=== PATIENT | male | born 1940 | race Caucasian/White ===

== ENCOUNTER 2024-06-16 14:22 | Outpatient (CLI) | payer MEDICARE, BC, SELFPAY | END 2024-06-16 14:23 | disposition home or self-care (01) | PROVIDERS: PCP Family Medicine; Visit Provider Emergency Medicine | DX: R53.1 Weakness (principal); I49.9 Cardiac arrhythmia, unspecified; R42 Dizziness and giddiness | CPT/HCPCS: A0425; A0427 ==

== ENCOUNTER 2024-06-16 14:52 | Observation (INO) | payer MEDICARE, BC, SELFPAY ==
[2024-06-16] VITALS (8 sets, daily range): BP systolic 123–160; BP diastolic 47–88; PULSE 67–82; RESP 16–22; TEMP 36.6–37.1; O2SAT 95–98
--- NOTE | 2024-06-16 15:34 | CRLHL7_ITS ---
For Patients: As a result of the Century Cures Act, medical imaging exams and procedure reports are released immediately into your electronic medical record. You may view this report before your referring provider. If you have questions, please contact your health care provider. Indication: Weakness, syncope, fall and hit head Technique: Volumetric multidetector CT images of the cervical spine were obtained without the administration of IV contrast. Comparison: None available. Findings: The cervical vertebral body heights are grossly maintained with minimal endplate Schmorl`s defects. There is mild straightening of the normal cervical lordosis with trace anterolisthesis C4 on C5. There is no displaced fracture or dislocation. Moderate multilevel degenerative disc disease with disc height loss and marginal osteophyte formation. Minimal ossification of the posterior longitudinal ligament. Moderate degenerative changes of the atlantoaxial joint are appreciated. There is moderate to severe facet arthrosis. The paraspinous soft tissues are grossly within normal limits. Impression: Moderate degenerative changes of the cervical spine without acute osseous abnormality. Please note that all CT scans at this facility use dose modulation, iterative reconstruction, and/or weight-based dosing when appropriate to reduce radiation dose to as low as reasonably achievable. Dictated by Jeovany Gerard MD @ 06/16/2024 4:59:20 PM (Electronically Signed)
--- NOTE | 2024-06-16 15:34 | CRLHL7_ITS ---
For Patients: As a result of the Cures Act, medical imaging exams and procedure reports are released immediately into your electronic medical record. You may view this report before your referring provider. If you have questions, please contact your health care provider. Indication: Syncope, weakness recent fall and head strike Technique: Volumetric multidetector CT images of the head were obtained without the administration of low osmolar intravenous contrast. Comparison: None available Findings: There is minimal subacute to acute subdural hemorrhage layering along the anterior right cerebral convexity with additional more chronic subdural fluid layering along the left cerebral convexity. There is balanced effacement of the bilateral cerebral hemispheres without significant midline shift. There is age-related cortical atrophy with mild sulcal widening and ex vacuo dilatation of the lateral ventricles. There are chronic small vessel disease changes in the subcortical and periventricular white matter without lost ritter-white differentiation. The orbits and their contents are grossly within normal limits. The bony calvarium is grossly intact. The paranasal sinuses are clear. The mastoid air cells are well aerated. Impression: Demonstration of likely acute and/or subacute subdural hemorrhage layering along the right anterior cerebral convexity with additional likely chronic subdural fluid layering along the left cerebral convexity with overall balanced effacement of the bilateral cerebral hemispheres without significant midline shift. Findings were discussed with Ian Finnegan at 5:01 p.m. June 16, 2024 Please note that all CT scans at this facility use dose modulation, iterative reconstruction, and/or weight-based dosing when appropriate to reduce radiation dose to as low as reasonably achievable. Dictated by Jeovany Gerard MD @ 06/16/2024 5:07:09 PM (Electronically Signed)
--- NOTE | 2024-06-16 15:36 | ED.GENADULT ---
HPI - General Adult General Date Seen: 06/16/24 Chief complaint: Syncope/Fainted Stated complaint: weekness Time Seen by Provider: 06/16/24 15:10 Source: patient and family Mode of arrival: EMS Limitations: no limitations History of Present Illness HPI narrative: Patient is an 83-year-old male presenting to emergency department for weakness. He is brought in by EMS. His states that today while sitting in his chair the patient suddenly through was arms up in then seemed to be elevated for the next 10 seconds. She asked if he wants to come to the emergency department he says yesterday called an ambulance. He states he is no longer feeling lightheaded but feels slightly dizzy. Denies any chest pain or shortness of breath. States he has been feeling weak since mid March. He thinks it is related to a fall he had at that time were hit his head. Since then he has had multiple other falls with most recent 1 being yesterday when he slipped in some water. He believes he hit his head at that time. Is not on any blood thinners. He is otherwise acting normally. Does note yesterday he was also feeling very weak when trying to go to the bathroom and had to be on his hands and knees. Has been more off balance when walking compared to his baseline. Was able to shovel snow yesterday when he slipped on some ice. Overall sounds like the patient is falling quite a few times. Denies abdominal pain, headache, vision changes, numbness. Related Data Home Medications ?Medication ?Instructions ?Recorded ?Confirmed No Known Home Medications 06/16/24 06/16/24 Allergies Allergy/AdvReac Type Severity Reaction Status Date / Time No Known Drug Allergies Allergy Verified 06/16/24 15:16 Review of Systems Status of ROS: Reports: 10 or more systems reviewed and unremarkable except as noted in History and below PFS PFS Social History Smoking Status: Never smoker How often do you have a drink containing alcohol: never AUDIT-C Alcohol total score: 0 Non-prescribed substance use: denies use service: No Exam Narrative: Exam Narrative: Const: Well-nourished, Well-developed, in no distress Eyes: PERRL, no conjunctival injection, and symmetrical lids HENT: Atraumatic external nose and ears. Moist mucous membranes. Neck: Symmetric, trachea midline, No thyromegaly. CVS: RRR, No murmurs or gallops. Peripheral pulses 2+ and equal in all extremities RESP: Unlabored respiratory effort. Clear to auscultation bilaterally. GI: Nontender/Nondistended, No rebound or guarding. MSK:Extremities w/o deformity, Normal Active ROM Skin: Warm, Dry. No rashes or lesions. Neuro: Normal Muscle tone, Cranial nerves 2-12 grossly intact, normal [id number], normal [id number], normal strength 5/5 upper lower extremities bilaterally, normal sensation upper and lower extremities bilaterally, normal rapid alternating movements. Psych: Awake, Alert, & Oriented x3. Appropriate mood and affect. Const: Vital Signs, click to edit/add: Vital Signs - 24 hr 06/16/24 15:01 06/16/24 15:57 06/16/24 16:04 Temperature 97.8 F Pulse Rate [Pulse Oximeter] 72 72 Pulse Rate [orthos tatic lying Pulse Oximeter] 75 Pulse Rate [orthos tatic sitting Puls e Oximeter] 72 Pulse Rate [orthos tatic standing Pul se Oximeter] 82 Respiratory Rate 16 22 Blood Pressure [Ri ght Upper Arm] 142/83 H 138/70 Blood Pressure [or thostatic lying] 142/83 H Blood Pressure [or thostatic sitting] 136/73 Blood Pressure [or thostatic standing ] 140/76 H Pulse Oximetry 98 95 Oxygen Delivery Me thod Room Air Room Air 06/16/24 16:30 Temperature 98.8 F Pulse Rate [Pulse Oximeter] 70 Pulse Rate [orthos tatic lying Pulse Oximeter] Pulse Rate [orthos tatic sitting Puls e Oximeter] Pulse Rate [orthos tatic standing Pul se Oximeter] Respiratory Rate 18 Blood Pressure [Ri ght Upper Arm] 123/88 Blood Pressure [or thostatic lying] Blood Pressure [or thostatic sitting] Blood Pressure [or thostatic standing ] Pulse Oximetry 96 Oxygen Delivery Me thod Room Air Course Vital Signs Vital signs: Initial Vital Signs Temperature 97.8 F 06/16/24 15:01 Temperature Source Temporal Artery Scan 06/16/24 15:01 Pulse Rate 72 06/16/24 15:01 Respiratory Rate 16 06/16/24 15:01 Blood Pressure 142/83 H 06/16/24 15:01 Blood Pressure Mean 102 06/16/24 15:01 Blood Pressure Position Supine 06/16/24 15:01 Pulse Oximetry 98 06/16/24 15:01 Oxygen Delivery Method Room Air 06/16/24 15:01 Vital Signs Temperature 97.8 F 06/16/24 15:01 Pulse Rate 72 06/16/24 15:01 Respiratory Rate 16 06/16/24 15:01 Blood Pressure 142/83 H 06/16/24 15:01 Pulse Oximetry 98 06/16/24 15:01 Oxygen Delivery Method Room Air 06/16/24 15:01 Temperature 98.8 F 06/16/24 16:30 Pulse Rate 70 06/16/24 16:30 Respiratory Rate 18 06/16/24 16:30 Blood Pressure 123/88 06/16/24 16:30 Pulse Oximetry 96 06/16/24 16:30 Oxygen Delivery Method Room Air 06/16/24 16:30 Medical Decision Making MDM Narrative Medical decision making narrative: Patient is an 83-year-old male presenting to emergency department for multiple falls and weakness. Unsure what is causing his falls there is concerned possible brain bleed considering home either have been. Will also check a BMP to look for signs of kidney or electrolyte disorders. EKG and troponin to look for signs of ACS. Also order viral swabs. Since he has fallen multiple times will also scan the neck for possible fractures and head for possible bleeding. Lab work all returned showing no acute concerning abnormalities. Urinalysis still pending at this time. EKG and troponin showed no concerning findings. Consider symptoms seem to have been going on for several weeks to months I do not believe repeat troponin is necessary at this time. Lab Data Labs: Lab Results 06/16/24 06/16/24 Range/Units 15:34 15:51 WBC 6.83 (4.50-11.00) K/uL RBC 4.14 L (4.30-5.90) m/uL Hgb 12.3 L (13.5-17.5) gm/dL Hct 38.4 (37.0-53.0) % MCV 93 (80-100) fL MCH 30 (26-34) pg MCHC 32 (32-36) gm/dL RDW Coeff of Ophelia 12.2 (11.5-15.5) % Plt Count 197 (140-440) K/uL Neut % (Auto) 78.1 H (42.0-72.0) % Lymph % (Auto) 12.9 L (20-44) % [place] % (Auto) 8.5 (0.0-11.0) % Eos % (Auto) 0.4 (0.0-7.0) % Baso % (Auto) 0.0 (0.0-3.0) % Neut # (Auto) 5.30 (1.7-7.0) K/uL Lymph # (Auto) 0.90 (0.90-2.90) K/uL [place] # (Auto) 0.60 (0.00-0.90) K/UL Eos # (Auto) 0.03 (0.00-0.50) K/uL Baso # (Auto) 0.00 (0.00-0.30) K/uL Abs Immat Gran (auto) 0.01 (0.00-0.30) K/uL Imm/Tot Granulo (auto) 0.1 % Sodium 137 (135-149) mmol/L Potassium 4.7 (3.6-5.1) mmol/L Chloride 102 (96-114) mmol/L Carbon Dioxide 32 (20-32) mmol/L Anion Gap 3 L (7-15) mEq/L BUN 20 (7-30) mg/dL Creatinine 0.9 (0.5-1.5) mg/dL Estimated GFR 85 ml/min Glucose 92 (60-115) mg/dL Calcium 9.1 (8.4-10.6) mg/dL Total Bilirubin 0.7 (0.1-1.5) mg/dL AST 40 H (12-35) U/L ALT 23 (4-50) U/L Alkaline Phosphatase 67 (40-150) U/L Total Protein 6.0 (6.0-8.3) g/dL Albumin 3.7 (3.3-5.0) g/dL SARS-CoV-2 (PCR) Negative SARS-CoV-2 (Negative) Influenza Type A (PCR) Negative PCR FLU A (Negative) Influenza Type B (PCR) Negative PCR FLU B (Negative) RSV (PCR) Negative PCR RSV (Negative) POC Troponin I 0.00 L (0.01-0.04) ng/ml Imaging Data CT scan cervical spine : Attestation: I have reviewed the pertinent imaging results. Radiologist's impression: Moderate degenerative changes of the cervical spine without acute osseous abnormality. Please note that all CT scans at this facility use dose modulation, iterative reconstruction, and/or weight-based dosing when appropriate to reduce radiation dose to as low as reasonably achievable. Dictated by Jeovany Gerard MD @ 06/16/2024 4:59:[address] scan head: Attestation: I have reviewed the pertinent imaging results. Radiologist's impression: Demonstration of likely acute and/or subacute subdural hemorrhage layering along the right anterior cerebral convexity with additional likely chronic subdural fluid layering along the left cerebral convexity with overall balanced effacement of the bilateral cerebral hemispheres without significant midline shift. Findings were discussed with Ian Finnegan at 5:01 p.m. June 16, 2024 Please note that all CT scans at this facility use dose modulation, iterative reconstruction, and/or weight-based dosing when appropriate to reduce radiation dose to as low as reasonably achievable. Dictated by Jeovany Gerard MD @ 06/16/2024 5:07:09 PM ECG Data Attestation: I personally reviewed and interpreted this ECG as follows: Prior ECG tracings: not available for review Interpretation: Normal sinus rhythm with a rate of 77 beats per minute, normal intervals, normal axis, no ST or T-wave abnormalities. There are some premature atrial complexes. Discharge Plan Discharge Clinical Impression: Acute subdural hematoma Condition: Stable Prescriptions: No Action No Known Home Medications Follow Up/Referrals: Joshua Duran MD [Primary Care Provider] -
[2024-06-16 16:05] LABS: Eosinophils Absolute Auto 0.03 K/uL (0.00-0.50); Eosinophils Percent Auto 0.4 % (0.0-7.0); Hematocrit 38.4 % (37.0-53.0); Hemoglobin* 12.3 gm/dL (13.5-17.5); Immature Granulocytes Abs Auto 0.01 K/uL (0.00-0.30); Immature Granulocytes Pct Auto 0.1 %; Lymphocytes Percent Auto 12.9 % (20-44); Mean Corpuscular HGB Conc 32 gm/dL (32-36); Mean Corpuscular Hemoglobin 30 pg (26-34); Mean Corpuscular Volume 93 fL (80-100); Monocytes Percent Auto 8.5 % (0.0-11.0); Neutrophils Percent Auto 78.1 % (42.0-72.0); Platelet Count* 197 K/uL (140-440); RDW Coefficient of Variation % 12.2 % (11.5-15.5); Red Blood Count 4.14 m/uL (4.30-5.90); White Blood Count* 6.83 K/uL (4.50-11.00)
[2024-06-16 16:06] LABS: Slide Review Reflex No
[2024-06-16 16:20] LABS: Albumin* 3.7 g/dL (3.3-5.0); Chloride* 102 mmol/L (96-114); Potassium* 4.7 mmol/L (3.6-5.1); Sodium* 137 mmol/L (135-149)
[2024-06-16 16:22] LABS: Creatinine* 0.9 mg/dL (0.5-1.5); Estimated Glomerular Filt Rate 85 ml/min
[2024-06-16 16:23] LABS: Alanine Aminotransferase* 23 U/L (4-50); Alkaline Phosphatase* 67 U/L (40-150); Anion Gap 3 mEq/L (7-15); Aspartate Amino Transferase* 40 U/L (12-35); Bilirubin Total* 0.7 mg/dL (0.1-1.5); Blood Urea Nitrogen* 20 mg/dL (7-30); Calcium* 9.1 mg/dL (8.4-10.6); Carbon Dioxide* 32 mmol/L (20-32); Glucose* 92 mg/dL (60-115)
[2024-06-16 16:25] LABS: PCR FLU A Negative PCR FLU A (Negative); PCR FLU B Negative PCR FLU B (Negative); PCR RSV Negative PCR RSV (Negative); SARS PCR* Negative SARS-CoV-2 (Negative)
[2024-06-16 17:33] LABS: Appearance Urine Cloudy (Clear); Bilirubin Urine Negative (Negative); Blood Urine Trace-intact (Negative); Color Urine Yellow (Yellow); Glucose Urine Negative (Negative); Ketones Urine Negative (Negative); Leukocyte Esterase Urine 1+ (Negative); Nitrite Urine Negative (Negative); Protein Urine Trace (Negative); Urobilinogen Urine 0.2 (0.2-1.0)
[2024-06-16 17:46] LABS: RBC Urine 0-2 (0-2)
[2024-06-16 17:47] LABS: Bacteria Urine Many
--- NOTE | 2024-06-16 21:09 | ED.NURSE ---
Ambulated well around nursing station. This nurse noted pt might be slightly unsteady, but pt does not think so, he does however state he is diizy and lightheaded after ambulation.
--- NOTE | 2024-06-16 21:34 | CRLHL7_ITS ---
For Patients: As a result of the Century Cures Act, medical imaging exams and procedure reports are released immediately into your electronic medical record. You may view this report before your referring provider. If you have questions, please contact your health care provider. Indication: Subdural hematoma follow-up Technique: Noncontrast CT through the head with multiplanar reformats Comparison: Same-day head CT Findings: Brain: No parenchymal hemorrhage. No acute infarct. No significant mass effect or midline shift. No gross evidence of a mass lesion or cerebral edema. Bilateral subdural hematomas measuring 8 millimeters on the right and 9 millimeters on the left, not significantly changed from prior examination. No new or worsening hemorrhage appreciated. No new or worsening mass effect or midline shift. Ventricles: No acute abnormality appreciated. Unchanged chronic senescent disease. Orbits, sinuses, mastoids: No acute abnormality appreciated. Calvarium and soft tissues: No acute abnormality appreciated. Impression: Bilateral subdural hematomas appear unchanged from prior examination with no new or worsening hemorrhage or mass effect appreciated. Please note that all CT scans at this facility use dose modulation, iterative reconstruction, and/or weight-based dosing when appropriate to reduce radiation dose to as low as reasonably achievable. Dictated by Nirav Hernandez MD @ 06/16/2024 10:26:56 PM (Electronically Signed)
--- NOTE | 2024-06-16 23:04 | PM.IMHP1 ---
Hospitalist- H&P: HPI History of Present Illness Date Seen: 06/17/24 Chief complaint: weakness Narrative: Jose Alberto Amado is a 83 year old male who presented to the ER by EMS for weakness and an atypical neurological episode today. While watching TV today, his saw him throw his arms up and hold them there for about ten seconds. He didn't seem to be responding during that time, no true LOC. He has been notably more tired and unsteady since he had two falls in mid-March (hitting his head, no LOC. Was not seen by a medical provider). He has had other falls since (including yesterday), none with head injuries. Given his neurological episode today, called the ambulance. Upon questioning, notes urinary frequency and strong smell of urine over the past 1-2 weeks. + incontinence, chronic. ER Course and Findings: - acute/subacute subdural on CT. Reviewed with [facility], who felt this was likely chronic and requested repeat imaging in 6 hours, which demonstrated stability - patient noted to be weak and unsteady walking around the ER - CBC and BMP stable, + bacteruria, culture pending Given new diagnosis of subdural hemorrhage + increased falls and ambulatory difficulty, patient admitted to the hospital. Jose Alberto has a h/o prostate cancer, otherwise healthy and takes no regular prescription medications. PCP at [facility], Pierre Navarro. Review of Systems Status of ROS: Reports: 10 or more systems reviewed and unremarkable except as noted in History and below Narrative: - no headaches, no visual changes - no cough or dyspnea - no recent illnesses - family notes that Jose Alberto and Precious have been quite anxious regarding COVID risks; none of the children have been inside their home since [address] 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 Lives independently with Precious. Nonsmoker, no ETOH. Unsure about code status, definitely does not desire mcc intubation. Smoking Status: Never smoker How often do you have a drink containing alcohol: never AUDIT-C Alcohol total score: 0 Non-prescribed substance use: denies use service: No Meds Home Medications and Allergies Home Medications ?Medication ?Instructions ?Recorded ?Confirmed ?Type No Known Home Medications 06/16/24 06/16/24 History Allergies Allergy/AdvReac Type Severity Reaction Status Date / Time No Known Drug Allergies Allergy Verified 06/16/24 15:16 Exam Narrative: Exam Narrative: GEN: Alert and oriented, laying comfortably in bed and answering questions appropriately HEENT: PERRL and EOMIs bilaterally, tongue protrudes midline CV: RRR, No concerning murmurs R: LCTA bilaterally without concerning wheezing Ext: wwp, no concerning edema Skin: Scattered abrasions and bruising on forehead/extremities, all hemostatic Neuro: Cranial nerves intact, no resting tremor, gait not observed Psych: Appropriate bed Const: Vital Signs, click to edit/add: Vital Signs - 24 hr 06/16/24 15:01 06/16/24 15:57 06/16/24 16:04 Temperature 97.8 F Pulse Rate Pulse Rate [Pulse Oximeter] 72 72 Pulse Rate [orthos tatic lying Pulse Oximeter] 75 Pulse Rate [orthos tatic sitting Puls e Oximeter] 72 Pulse Rate [orthos tatic standing Pul se Oximeter] 82 Respiratory Rate 16 22 Blood Pressure Blood Pressure [Ri ght Upper Arm] 142/83 H 138/70 Blood Pressure [or thostatic lying] 142/83 H Blood Pressure [or thostatic sitting] 136/73 Blood Pressure [or thostatic standing ] 140/76 H Pulse Oximetry 98 95 Oxygen Delivery Me thod Room Air Room Air 06/16/24 16:30 06/16/24 17:32 06/16/24 18:00 Temperature 98.8 F Pulse Rate 67 70 Pulse Rate [Pulse Oximeter] 70 Pulse Rate [orthos tatic lying Pulse Oximeter] Pulse Rate [orthos tatic sitting Puls e Oximeter] Pulse Rate [orthos tatic standing Pul se Oximeter] Respiratory Rate 18 Blood Pressure 144/71 H 160/47 H Blood Pressure [Ri ght Upper Arm] 123/88 Blood Pressure [or thostatic lying] Blood Pressure [or thostatic sitting] Blood Pressure [or thostatic standing ] Pulse Oximetry 96 96 [facility] 06/16/24 18:02 06/16/24 18:32 Temperature Pulse Rate 71 68 Pulse Rate [Pulse Oximeter] Pulse Rate [orthos tatic lying Pulse Oximeter] Pulse Rate [orthos tatic sitting Puls e Oximeter] Pulse Rate [orthos tatic standing Pul se Oximeter] Respiratory Rate Blood Pressure 160/47 H 132/79 Blood Pressure [Ri ght Upper Arm] Blood Pressure [or thostatic lying] Blood Pressure [or thostatic sitting] Blood Pressure [or thostatic standing ] Pulse Oximetry 98 96 [facility] - H&P: Result Labs Labs: Short CBC 06/16/24 Range/Units 15:51 WBC 6.83 (4.50-11.00) K/uL Hgb 12.3 L (13.5-17.5) gm/dL Hct 38.4 (37.0-53.0) % Plt Count 197 (140-440) K/uL BMP 06/16/24 15:51 Sodium 137 Potassium 4.7 Chloride 102 Carbon Dioxide 32 BUN 20 Creatinine 0.9 Glucose 92 Calcium 9.1 Liver Function 06/16/24 Range/Units 15:51 Total Bilirubin 0.7 (0.1-1.5) mg/dL AST 40 H (12-35) U/L ALT 23 (4-50) U/L Alkaline Phosphatase 67 (40-150) U/L Albumin 3.7 (3.3-5.0) g/dL Urine 06/16/24 Range/Units 17:25 Urine Color Yellow (Yellow) Urine Appearance Cloudy A (Clear) Urine pH 7.0 (5.0-8.5) Ur Specific [place] 1.020 (1.000-1.030) Urine Protein Trace A (Negative) Urine Glucose (UA) Negative (Negative) Assessment and Plan Assessment and plan (1) Acute subdural hematoma: Problem comment: - new finding, presumably 2/2 fall in March 2024 - stable CT x2 (6 hours apart) in ED 06/16/24 - [facility] evaluated, f/u as outpatient Status: Acute (2) Falls frequently: Problem comment: - likely 2/2 subdural - therapy evaluations ordered Status: Acute Plan - per above - updated in ED, son updated on floor, questions answered
[2024-06-17] VITALS (11 sets, daily range): BP systolic 113–149; BP diastolic 65–83; PULSE 62–82; RESP 18–20; TEMP 36.6–36.9; O2SAT 93–97
--- NOTE | 2024-06-17 06:19 | PC.NURSE ---
Pt pleasant and cooperative. 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 Up to BR with SBA, pt denies feeling dizzy or lightheaded. no complaints through night
[2024-06-17] MEDS: SODIUM CHLORIDE 0.9 % (FLUSH) 10 ML SYRINGE 5 ML IVF (08:15)
--- NOTE | 2024-06-17 16:40 | P.IMPN_ITS ---
Progress Note: A&P Assessment and plan (1) Bilateral subdural hematomas: Problem details: Chronic and/or acute and chronic. Conservative management at this time. Outpatient follow-up with [facility]. Status: Acute (2) Cognitive impairment: Problem details: [place] 22/30 on 06/17/2024 Status: Acute (3) Fear of jerry COVID-19: Problem details: Patient has been isolating himself and his due to fear of COVID. At this point I think the risks of COVID are less than the risks of him being isolated from his family and others. Discussed at length with patient and family Status: Acute (4) Falls frequently: Problem details: Likely had risk for fall prior to subdurals but head injury with subdural is likely made balance worse and fall risk greater. 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 Probably discharge to home tomorrow with supportive family. Discussed recommendations to create a safer living environment, clean out clutter, live on 1 level, moved to a handicap assessable facility at some point in the future. Plan of care discussed with patient, his and daughter. Total time spent today in evaluation and management, conversation with patient family and other providers is 65 minutes Subjective Date Seen: 06/17/24 Interval history: Jose Alberto Amado is a 83 year old male who presented to the ER by EMS for weakness and an atypical neurological episode today. While watching TV today, his saw him throw his arms up and hold them there for about ten seconds. He didn't seem to be responding during that time, no true LOC. He has been notably more tired and unsteady since he had a few falls in mid- March (hitting his head, no LOC. Was not seen by a medical provider). He has had other falls since in April and May (including yesterday), some with head injuries but not I head injury in the past couple days. When he is outside in the winter he wears a bicycle helmet in case he falls and hits his head. Given his neurological episode today, called the ambulance. Upon questioning, notes urinary frequency and strong smell of urine over the past 1-2 weeks. + incontinence, chronic. ER Course and Findings: - acute/subacute subdural on CT. Reviewed with [facility], who felt this was likely chronic and requested repeat imaging in 6 hours, which demonstrated stability - patient noted to be weak and unsteady walking around the ER - CBC and BMP stable, + bacteruria, culture pending Given new diagnosis of subdural hemorrhage + increased falls and ambulatory difficulty, patient admitted to the hospital. Jose Alberto has a h/o prostate cancer, otherwise healthy and takes no regular prescription medications. PCP at [facility], Pierre Navarro. He lives at home with his . He is still driving. Family notes that his house is quite cluttered and they are unsure if he can safely walk with a walker in the house. Family has not been welcome to the house since COVID because of concern of infection. House has a flight of stairs into the basement where he goes to exercise and a flight of stairs from the main floor up stairs where he has a bedroom. Exam Narrative: Exam Narrative: He is alert and appears in no distress. Speech is normal. He is oriented to [facility]. Head is without apparent trauma. Eyes normal. Oropharynx normal. Tongue is midline. No facial asymmetry. External ocular movements are intact. Visual ortiz are intact. Pupils are equal round reactive to light. Neck is supple without mass or adenopathy. Respirations are clear to auscultation. Cardiovascular: S1, S2, regular rate and rhythm. Abdomen is soft without tenderness or mass. 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 Lower extremities have full strength symmetrically in hip flexion, knee flexion and extension, ankle dorsiflexion and plantar flexion. [id number] and heel-[place] are performed efficiently and accurately Const: Vital Signs, click to edit/add: Vital Signs - 24 hr 06/16/24 17:32 06/16/24 18:00 06/16/24 18:02 Temperature Pulse Rate 67 70 71 Pulse Rate [Pulse Oximeter] Pulse Rate [orthos tatic lying Pulse Oximeter] Pulse Rate [orthos tatic sitting Puls e Oximeter] Pulse Rate [orthos tatic standing Pul se Oximeter] Respiratory Rate Blood Pressure 144/71 H 160/47 H 160/47 H Blood Pressure [Le ft Arm] Blood Pressure [Ri ght Arm] Blood Pressure [or thostatic lying] Blood Pressure [or thostatic sitting] Blood Pressure [or thostatic standing ] Pulse Oximetry 96 96 98 Oxygen Delivery Me thod 06/16/24 18:32 06/17/24 00:35 06/17/24 02:25 Temperature 98.5 F Pulse Rate 68 67 Pulse Rate [Pulse Oximeter] Pulse Rate [orthos tatic lying Pulse Oximeter] Pulse Rate [orthos tatic sitting Puls e Oximeter] Pulse Rate [orthos tatic standing Pul se Oximeter] Respiratory Rate 20 Blood Pressure 132/79 Blood Pressure [Le ft Arm] Blood Pressure [Ri ght Arm] 149/78 H Blood Pressure [or thostatic lying] Blood Pressure [or thostatic sitting] Blood Pressure [or thostatic standing ] Pulse Oximetry 96 94 Oxygen Delivery Me thod Room Air 06/17/24 02:25 06/17/24 03:30 06/17/24 08:15 Temperature 98.3 F Pulse Rate 63 Pulse Rate [Pulse Oximeter] Pulse Rate [orthos tatic lying Pulse Oximeter] Pulse Rate [orthos tatic sitting Puls e Oximeter] Pulse Rate [orthos tatic standing Pul se Oximeter] Respiratory Rate 18 20 Blood Pressure Blood Pressure [Le ft Arm] Blood Pressure [Ri ght Arm] 113/68 Blood Pressure [or thostatic lying] Blood Pressure [or thostatic sitting] Blood Pressure [or thostatic standing ] Pulse Oximetry 96 93 Oxygen Delivery Me thod Room Air Room Air 06/17/24 08:15 06/17/24 08:15 06/17/24 09:53 Temperature 98.2 F Pulse Rate Pulse Rate [Pulse Oximeter] 73 73 Pulse Rate [orthos tatic lying Pulse Oximeter] 63 Pulse Rate [orthos tatic sitting Puls e Oximeter] 71 Pulse Rate [orthos tatic standing Pul se Oximeter] 82 Respiratory Rate 18 18 Blood Pressure Blood Pressure [Le ft Arm] 119/72 Blood Pressure [Ri ght Arm] Blood Pressure [or thostatic lying] 125/65 Blood Pressure [or thostatic sitting] 126/74 Blood Pressure [or thostatic standing ] 139/70 Pulse Oximetry 94 Oxygen Delivery Me thod Room Air 06/17/24 11:30 06/17/24 14:48 06/17/24 15:08 Temperature 98.3 F 98 F Pulse Rate 69 Pulse Rate [Pulse Oximeter] 62 65 Pulse Rate [orthos tatic lying Pulse Oximeter] Pulse Rate [orthos tatic sitting Puls e Oximeter] Pulse Rate [orthos tatic standing Pul se Oximeter] Respiratory Rate 18 18 Blood Pressure Blood Pressure [Le ft Arm] 128/73 Blood Pressure [Ri ght Arm] Blood Pressure [or thostatic lying] Blood Pressure [or thostatic sitting] Blood Pressure [or thostatic standing ] Pulse Oximetry 97 95 Oxygen Delivery Me thod Room Air Room Air 06/17/24 15:08 Temperature Pulse Rate Pulse Rate [Pulse Oximeter] 65 Pulse Rate [orthos tatic lying Pulse Oximeter] Pulse Rate [orthos tatic sitting Puls e Oximeter] Pulse Rate [orthos tatic standing Pul se Oximeter] Respiratory Rate 18 Blood Pressure Blood Pressure [Le ft Arm] Blood Pressure [Ri ght Arm] Blood Pressure [or thostatic lying] Blood Pressure [or thostatic sitting] Blood Pressure [or thostatic standing ] Pulse Oximetry Oxygen Delivery Me thod Documenting provider has reviewed patient's vital signs: yes Labs Labs: Laboratory Results - last 24 hr 06/16/24 17:25 Urine Color Yellow Urine Appearance Cloudy A Urine pH 7.0 Ur Specific [place] 1.020 Urine Protein Trace A Urine Glucose (UA) Negative Urine Ketones Negative Urine Blood Trace-intact A Urine Nitrite Negative Urine Bilirubin Negative Urine Urobilinogen 0.2 Ur Leukocyte Esterase 1+ A Urine RBC 0-2 Urine WBC 10-25 A Ur Squamous Epith Cells None Urine Bacteria Many A
--- NOTE | 2024-06-17 18:55 | PC.NURSE ---
End of shift summary: Pt has been A&O, afebrile and VSS. He is up SBA with 2ww and gait belt for transfers and ambulation. Bed alarm in place d/t pt self transferring. He denies having any pain or nausea but reports feeling ?woozy? with ambulation. Incontinent of urine all day & has been very foul smelling. Post-void bladder scanned for 509 mL & MD aware. Orthostatic VS were negative. TELE reads NSR with rate int eh 60s-70s. PIV in left AC SL and C/D/I. If pt remains medically stable, plan is to discharge home tomorrow, 06/18. ?
[2024-06-18] MEDS: SODIUM CHLORIDE 0.9 % (FLUSH) 10 ML SYRINGE 5 ML IVF (02:22)
[2024-06-18 02:56] VITALS: BP 139/83; PULSE 69; RESP 18; TEMP 36.8; O2SAT 93
--- NOTE | 2024-06-18 06:38 | PC.NURSE ---
Shift note: Patient is doing well. Alert and oriented. Vitally stable. Strong urine odor in room. Brief changed, no pain reported.
[2024-06-18 07:05] LABS: Eosinophils Absolute Auto 0.14 K/uL (0.00-0.50); Eosinophils Percent Auto 2.2 % (0.0-7.0); Hematocrit 37.9 % (37.0-53.0); Hemoglobin* 12.4 gm/dL (13.5-17.5); Immature Granulocytes Abs Auto 0.01 K/uL (0.00-0.30); Immature Granulocytes Pct Auto 0.2 %; Lymphocytes Absolute Auto 1.81 K/uL (0.90-2.90); Mean Corpuscular HGB Conc 33 gm/dL (32-36); Mean Corpuscular Hemoglobin 30 pg (26-34); Mean Corpuscular Volume 91 fL (80-100); Monocytes Percent Auto 10.7 % (0.0-11.0); Neutrophils Absolute Auto 3.81 K/uL (1.7-7.0); Neutrophils Percent Auto 58.9 % (42.0-72.0); Platelet Count* 219 K/uL (140-440); RDW Coefficient of Variation % 12.5 % (11.5-15.5); Red Blood Count 4.16 m/uL (4.30-5.90); White Blood Count* 6.46 K/uL (4.50-11.00)
[2024-06-18 07:21] LABS: Chloride* 104 mmol/L (96-114); Slide Review Reflex No
[2024-06-18 07:22] LABS: Potassium* 3.6 mmol/L (3.6-5.1); Sodium* 136 mmol/L (135-149)
[2024-06-18 07:24] LABS: Anion Gap 5 mEq/L (7-15); Carbon Dioxide* 27 mmol/L (20-32); Creatinine* 0.8 mg/dL (0.5-1.5); Estimated Glomerular Filt Rate 87 ml/min
[2024-06-18 07:25] LABS: Blood Urea Nitrogen* 20 mg/dL (7-30); Calcium* 8.5 mg/dL (8.4-10.6); Glucose* 88 mg/dL (60-115)
[2024-06-18 07:41] VITALS: PULSE 67
[2024-06-18 08:14] VITALS: BP 120/79; PULSE 70; RESP 16; TEMP 36.6; O2SAT 94
--- NOTE | 2024-06-18 13:32 | PM.DS1 ---
DS: Providers Provider Date Seen: 06/18/24 Date of admission: 06/16/24 22:48 Primary care physician: Joshua Duran MD Admitting Clinician: Seema Adam MD Attending Physician on discharge: Ezra Guidry MD Date of Discharge: 06/18/24 DS: Diagnosis Discharge Diagnosis (1) Acute subdural hematoma: Status: Acute Problem details: - new finding, presumably 2/2 fall in March 2024 - stable CT x2 (6 hours apart) in ED 06/16/24 - [facility] evaluated, f/u as outpatient (2) Bilateral subdural hematomas: Status: Acute Problem details: Chronic and/or acute and chronic. Conservative management at this time. Outpatient follow-up with [facility]. (3) Falls frequently: Status: Acute Problem details: Likely had risk for fall prior to subdurals but head injury with subdural is likely made balance worse and fall risk greater. Needs to use a walker full-time. Recommended it arranging the home to minimize requirement of walking stairs. Get a walker on each level. Consider moving to handicap assessable facility. (4) Cognitive impairment: Status: Acute Problem details: [place] on 06/17/2024 (5) Fear of jerry COVID-19: Status: Acute Problem details: Patient has been isolating himself and his due to fear of COVID. At this point I think the risks of COVID are less than the risks of him being isolated from his family and others. 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 While watching TV today, his saw him throw his arms up and hold them there for about ten seconds. He didn't seem to be responding during that time, no true LOC. He has been notably more tired and unsteady since he had a few falls in mid-March (hitting his head, no LOC. Was not seen by a medical provider). He has had other falls since in April and May (including yesterday), some with head injuries but not I head injury in the past couple days. When he is outside in the winter he wears a bicycle helmet in case he falls and hits his head. Given his neurological episode today, called the ambulance. Upon questioning, notes urinary frequency and strong smell of urine over the past 1-2 weeks. + incontinence, chronic. ER Course and Findings: - acute/subacute subdural on CT. Reviewed with [facility], who felt this was likely chronic and requested repeat imaging in 6 hours, which demonstrated stability - patient noted to be weak and unsteady walking around the ER - CBC and BMP stable, + bacteruria, culture pending Given new diagnosis of subdural hemorrhage + increased falls and ambulatory difficulty, patient admitted to the hospital. Jose Alberto has a h/o prostate cancer, otherwise healthy and takes no regular prescription medications. PCP at [facility], Pierre Navarro. He lives at home with his . He is still driving. Family notes that his house is quite cluttered and they are unsure if he can safely walk with a walker in the house. Family has not been welcome to the house since COVID because of concern of infection. House has a flight of stairs into the basement where he goes to exercise and a flight of stairs from the main floor up stairs where he has a bedroom. Family meeting the day prior to discharge and today on the day of discharge with the patient present. Today 2 sons and daughter were present as well. Long discussion about need for family to be more involved with parents, assist with decision making about making a safe living environment, providing transportation, social support. Status at Discharge Functional status at discharge: uses cane/walker Overall status at discharge: patient is progressing back to baseline Time Spent with Patient Time attestation: Total time spent providing and/or coordinating discharge services: 45 minutes Time spent: Greater than 30 minutes Exam Narrative: Exam Narrative: He is alert and appears in no distress. Pleasant and cooperative. Ambulates well with a walker. Responds appropriately to 5th physician and family desire for engagement and safety for their parents Const: Vital Signs, click to edit/add: Vital Signs - 24 hr 06/17/24 14:48 06/17/24 15:08 06/17/24 15:08 Temperature 98 F Pulse Rate 69 Pulse Rate [Pulse Oximeter] 65 65 Respiratory Rate 18 18 Blood Pressure [Le ft Arm] 128/73 Blood Pressure [Ri ght Arm] Pulse Oximetry 95 Oxygen Delivery Me thod Room Air 06/17/24 19:00 06/17/24 22:55 06/17/24 22:55 Temperature 98.5 F 98.2 F Pulse Rate Pulse Rate [Pulse Oximeter] 71 67 67 Respiratory Rate 18 18 18 Blood Pressure [Le ft Arm] 135/83 Blood Pressure [Ri ght Arm] 142/79 H Pulse Oximetry 94 93 Oxygen Delivery Me thod Room Air Room Air 06/17/24 23:00 06/18/24 02:56 06/18/24 07:41 Temperature 98.2 F Pulse Rate 67 67 Pulse Rate [Pulse Oximeter] 69 Respiratory Rate 18 Blood Pressure [Le ft Arm] Blood Pressure [Ri ght Arm] 139/83 Pulse Oximetry 93 Oxygen Delivery Me thod Room Air 06/18/24 08:14 Temperature 97.9 F Pulse Rate Pulse Rate [Pulse Oximeter] 70 Respiratory Rate 16 Blood Pressure [Le ft Arm] Blood Pressure [Ri ght Arm] 120/79 Pulse Oximetry 94 Oxygen Delivery Me thod Room Air Documenting provider has reviewed patient's vital signs: yes DS: Data Data Completed and Pending Labs on day of discharge: Labs from last 24 hours 06/18/24 06:05 WBC 6.46 RBC 4.16 L Hgb 12.4 L Hct 37.9 MCV 91 MCH 30 MCHC 33 RDW Coeff of [place]hel[place] 12.5 Plt Count 219 Neut % (Auto) 58.9 Lymph % (Auto) 28.0 [place] % (Auto) 10.7 Eos % (Auto) 2.2 Baso % (Auto) 0.0 Neut # (Auto) 3.81 Lymph # (Auto) 1.81 [place] # (Auto) 0.70 Eos # (Auto) 0.14 Baso # (Auto) 0.00 Abs Immat Gran (auto) 0.01 Imm/Tot Granulo (auto) 0.2 Sodium 136 Potassium 3.6 Chloride 104 Carbon Dioxide 27 Anion Gap 5 L BUN 20 Creatinine 0.8 Estimated GFR 87 Glucose 88 Calcium 8.5 TSH 4.780 H Preliminary micro results at discharge 06/16/24 17:25 Urine Culture - Preliminary Urine,Clean Catch > 100,000 COL/ML MIXED GRAM POSITIVE SHAD ISOLATED NO FURTHER WORKUP Discharge Plan Discharge Disposition: Home, Self-Care Date of Admission: 06/16/24 22:48 Attending Provider on Discharge: Kwabena Guidry Primary Care Provider: Joshua Duran Condition: Stable Anticipated Discharge Date/Time: 06/18/24 09:00 Discharge Medications: No Action No Known Home Medications Discharge Orders: Discharge Order (Routine); Ordered 06/18/24 Ordered By: Kwabena Guidry Patient Education: Weakness (DC) Additional Instructions: Contact [facility] for outpatient appointment with neuro surgery to follow-up bilateral subdural hematomas Outpatient PT and OT evaluation and treatment 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 Activity Level: No Restrictions Discharge Diet: Regular Follow Up Appointments: Other [Other] () Diane Riggs MD [Referring] - 07/02/24 11:10 am ([facility] for follow up with your PCP) Forms: [employer] Info Instructions
== END 2024-06-18 10:35 | disposition home or self-care (01) ==
LOC: ED 17:39 → MEDSURG 22:49
PROVIDERS: Admitting Provider Family Medicine; Emergency Provider Student in an Organized Health Care Education/Training Program; PCP Family Medicine; Visit Provider Family Medicine
DX: R53.1 Weakness (principal); S06.5XAA Traumatic subdural hemorrhage with loss of consciousness status unknown, initial encounter; R29.6 Repeated falls; Z91.89 Other specified personal risk factors, not elsewhere classified; F40.298 Other specified phobia; R41.89 Other symptoms and signs involving cognitive functions and awareness; R42 Dizziness and giddiness; R26.9 Unspecified abnormalities of gait and mobility
CPT/HCPCS: 36415; 51798; 70450; 72125; 80048; 80053; 81001; 84443; 84484; 85025; 87086; 87631; 93005; 97110; 97116; 97162; 97165; 97530; 97535; 99285; G0378

== ENCOUNTER 2024-07-04 18:34 | Outpatient (CLI) | payer MEDICARE, BC, SELFPAY | END 2024-07-04 18:35 | disposition home or self-care (01) | LOC: AMB 07-18 06:57 | PROVIDERS: PCP Family Medicine; Visit Provider Emergency Medicine Emergency Medical Services | DX: R42 Dizziness and giddiness (principal); R20.0 Anesthesia of skin | CPT/HCPCS: A0425; A0427; A0429 ==

== ENCOUNTER 2024-07-04 22:24 | Outpatient (CLI) | payer MEDICARE, BC, SELFPAY | END 2024-07-04 22:25 | disposition home or self-care (01) | LOC: AMB 07-20 02:47 | PROVIDERS: PCP Family Medicine; Visit Provider Family Medicine | DX: R41.82 Altered mental status, unspecified (principal); R47.81 Slurred speech | CPT/HCPCS: A0425; A0429 ==

== ENCOUNTER 2024-07-04 22:57 | Inpatient (IN) | payer MEDICARE, BC, SELFPAY ==
--- NOTE | 2024-07-04 | CRLHL7_ITS ---
For Patients: As a result of the Century Cures Act, medical imaging exams and procedure reports are released immediately into your electronic medical record. You may view this report before your referring provider. If you have questions, please contact your health care provider. INDICATION: Altered mental status. TECHNIQUE: CT head without contrast. COMPARISON: 06/16/2024. FINDINGS: Decreased size of the bilateral subdural hematomas. No new acute intracranial hemorrhage. Mild generalized cerebral volume loss. 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 Crocker-white differentiation is maintained. Patchy white matter low attenuation changes, nonspecific but likely reflecting chronic small vessel ischemic disease. No midline shift. The visualized paranasal sinuses and mastoid air cells demonstrate no acute or significant findings. The visualized orbits are grossly unremarkable. No skull fractures. IMPRESSION: 1. No acute intracranial hemorrhage or midline shift. 2. Decreased size of the bilateral subdural hematomas. Please note that all CT scans at this facility use dose modulation, iterative reconstruction, and/or weight-based dosing when appropriate to reduce radiation dose to as low as reasonably achievable. Dictated by Steve Marquez MD @ 07/04/2024 11:15:57 PM (Electronically Signed)
--- OUTSIDE RECORDS SUMMARY | 2024-07-04 22:59 | XMS_ITS | Encounter Summary ---
Author Organization [facility] Address [address] [place] [address] Care Team Providers Care Hand Patcher Name Role Phone Diane Riggs M.D. Primary Care Provider [phone]- [phone] Reason for Referral * MRI/CAT/PET Scan (Routine) - Authorized Specialty Diagnoses / Procedures Referred By Contac t Referred To Contact Radiology Diagnoses Subdural Hematoma Nontraumatic (HCC) Procedures CT Head without IV Contrast Diane Riggs M.D. [address] [place] [phone] Phone: tel: fax: [facility] Referral ID Status Reason Start Date Expiration Date V isits Requested Visits Authorized [id number] Authorized 07/02/2024 07/02/2025 1 1 TIER * Outpatient (Routine) - Authorized Specialty Diagnoses / Procedures Referred By Michelle t Referred To Contact Neurological Surgery Diagnoses Subdural Hematoma Nontraumatic (HCC) Diane Riggs M.D. [address] [place] [phone] Phone: tel: fax: [facility] Referral ID Status Reason Start Date Expiration Date V isits Requested Visits Authorized [id number] Authorized 07/02/2024 01/01/2026 1 1 TIER Reason for Visit * Reason Comments Post Hosp- NF 06/16/24 Needs Neuro refer ral to [facility].Big fall in Mar, hit back of head while working outside; fall on ice as well as on 06/16 (raised arms while sitting in chair, arms went numb, got up from chair and legs gave out). Still exercising daily & PT exercises. Seeing OT at Hosp. Denies other SE. * Appointment Request (Routine) - Closed Specialty Diagnoses / Procedures Referred By Michelle t Referred To Contact Family Medicine Referral ID Status Reason Start Date Expiration Date Visits Re quested Visits Authorized [id number] Closed 06/18/2024 06/18/2025 1 1 Encounter Details Date Type Department Care Team (Latest Contact Info) Description 07/02/2024 11:30 AM HAND TIER Office Visit Department of Family Medicine, [facility], in [address] [phone] Diane Riggs M.D. [address] [place] [phone] Hemorrhage Subdural Trauma Without Loss Of Consciousness Subsequent (Primary Dx); History Of Falling; Incomplete Bladder Emptying; Personal History Of Malignant Neoplasm Of Prostate; Incontinence Fecal; Incontinence Urinary; Anemia; Annual Medicare Examination Return Discharge Disposition: Home or Self Care Social History Tobacco Use Types Packs/Day Years Used Date Smoking Tobacco: Never Smokeless Tobacco: Never Alcohol Use Standard Drinks/Week Comments No 0 (1 standard drink = 0.6 oz pur e alcohol) [facility] Utilities Answer Date Recorded In the past 12 months has e [employer], gas, oil, or water company threatened to shut off services in your home? No 07/02/2024 PHQ-2 Answer Date Recorded PHQ-2 Score 0 07/02/2024 Exercise Vital Sign Answer Date Recorde d On average, how many days pe r week do you engage in moderate to strenuous exercise (like a brisk walk)? 6 days 07/02/2024 On average, how many minutes do you engage in exercise at this level? 40 min 07/02/2024 Hunger Vital Sign Answer Date Recorded Within the past 12 months, y ou worried that your food would run out before you got the money to buy more. Never true 07/02/19 25 Within the past 12 months, t he food you bought just didn't last and you didn't have money to get more. Never true 07/02/2024 PRAPARE - Transportation Answer Date Re corded In the past 12 months, has l ack of transportation kept you from medical appointments or from getting medications? No 12/2024 In the past 12 months, has l ack of transportation kept you from meetings, work, or from getting things needed for daily living? No 07/02/2024 Nutrition Answer Date Recorded On average, how many serving s of fruits and vegetables do you eat per day (serving size is equal to 1 cup or approximately the size of a tennis ball)? 3-5 07/02/2024 Dental Answer Date Recorded Dental: Regular Dentist Yes 07/02/19 Employment Answer Date Recorded Employment status Retired 07/02/2024 Housing Stability Answer Date Recorded What is your living situation today? I have a [facility] place to live 07/02/2024 Sex and Gender Information Value Date Recorded Sex Assigned at Male 11/07/2017 10:07 AM CDT Legal Sex Male 6:00 PM HAND TIER Gender Identity Male 11/07/2017 10:07 AM CDT Sexual Orientation Straight 11/07/2017 10 :07 AM CDT documented as of this encounter Last Filed Vital Signs Vital Sign Reading Time Taken Comments Blood Pressure 136/82 07/02/2024 11:21 AM HAND TIER Pulse 81 07/02/2024 11:21 AM HAND TIER Temperature - - Respiratory Rate 16 07/02/2024 11:2 1 AM HAND TIER Oxygen Saturation - - Inhaled Oxygen Concentration - - Weight 66.2 kg (145 lb 15.1 oz) 025 11:21 AM HAND TIER Height 174.5 cm (5' 8.7) 07/02/2024 11 :21 AM HAND TIER Body Mass Index 21.74 07/02/2024 11:21 AM HAND TIER documented in this encounter Progress Notes * Diane Riggs M.D. - 07/02/2024 11:30 AM CST SUBJECTIVE REASON FOR VISIT Post Hosp- NF 06/16/24 (Needs Neuro referral to [facility]./Big fall in Mar, hit back of head while working outside; fall on ice as well as on 06/16 (raised arms while sitting in chair, arms went numb, gotup from chair and legs gave out). Still exercising daily & PT exercises. Seeing OT at Hosp. Denies other SE. /) HISTORY OF PRESENT ILLNESS Jose Alberto Amado is a 84 y.o. male patient who presents to the clinic today for above concern. Patient presented to the [facility] on 06/16 following a neurological episode. He was watching TV and threw up his arms for about 10 seconds and was not responding during that time. He gotup from his chair and his legs gave out. He had a history of a fall in mid March where he trippedwhile walking through grass and hit his head but did not lose consciousness. He did not seek care at that time and had no symptoms immediately after the event other than soreness in the back of his head. He also had a fall approximately one-week prior to presentation to the hospital after he slipped on the ice. He felt weak and getting up following this fall, however did not sustain any head injuries. In the [place] [facility] ED, head CT scan was obtained which showed acute/subacute subdural hemorrhage. Repeat CT scan demonstrated stability. Outpatient neurosurgery follow-up was recommended, as wellas outpatient PT. During hospitalization, there was concern that patient would have difficulty caring for himself at home. His home was noted to be cluttered, causing difficulty with maneuvering a walker. He was encouraged to have his family members assist with cares. Since hospital discharge, he has been doing well at home. His family has been helping around the house. He has cleared tripping hazards. His strength is much improved and he is no longer needing to use a walker, though does have 1 available. He denies any unsteadiness. He enjoys exercising and doesthis regularly, including a pedal machine. He has been doing PT exercises that were provided to himin the hospital. OBJECTIVE VITAL SIGNS Vitals reviewed as below: BP 136/82 (BP Location: Left arm, Patient Position: Sitting, Cuff Size: Regular) Pulse 81 Resp 16 Ht 174.5 cm Wt 66.2 kg BMI 21.74 kg/m?? PHYSICAL EXAMINATION Vitals reviewed. Constitutional General: He is not in acute distress. Eyes Extraocular Movements: Extraocular movements intact. Pupils: Pupils are equal, round, and reactive to light. Cardiovascular Rate and Rhythm: Normal rate and regular rhythm. Heart sounds: Normal heart sounds. Pulmonary Effort: Pulmonary effort is normal. Breath sounds: Normal breath sounds. No wheezing, rhonchi or rales. Musculoskeletal Right lower leg: No edema. Left lower leg: No edema. Skin General: Skin is warm and dry. Neurological General: No focal deficit present. Mental Status: He is alert. Mental status is at baseline. Coordination: Coordination normal. Gait: Gait normal. Comments: Upper and lower extremity strength is 5/5 and symmetric. Psychiatric Mood and Affect: Mood normal. Behavior: Behavior normal. Thought Content: Thought content normal. Judgment: Judgment normal. ASSESSMENT / PLAN #1 Subdural Hematoma Nontraumatic (HCC) #2 History Of Falling Patient has had excellent improvement in his generalized weakness following his recent hospitalization. He is planning follow up with outpatient OT. It was recommended that he have a repeat head CT in 2 weeks with outpatient neurosurgery consultation and these are ordered for him to schedule. #3 Incomplete Bladder Emptying #4 Personal History Of Malignant Neoplasm Of Prostate #5 Incontinence Fecal #6 Incontinence Urinary Prescription for adult pull-ups is faxed to his pharmacy. #7 Anemia Mild anemia noted during hospitalization. This is likely explained by his subdural hematoma, however would recommend follow-up labs in approximately 3 months. CBC ordered. Diane Riggs M.D. TIER documented in this encounter Plan of Treatment Scheduled Orders Name Type Priority Associated Diagnoses Orde r Schedule CT Head without IV Contrast Imaging RAD - Routine (most inpatients and all outpatients) Hemorrhage Subdural Trauma Without Loss Of Consciousness Subsequent Expected: 07/02/2024, Expires: 09/30/2025 CBC with Differential, Blood Lab Routine Anemia Expected: 09/30/2024, Expires: 09/30/2025 Scheduled Referrals Name Type Priority Associated Diagnoses Orde r Schedule Neurological Surgery - General consult (clinic) Outpatient Referral Routine Hemorrhage Subdural Trauma Without Loss Of Consciousness Subsequent Expected: 07/02/2024, Expires: 09/30/2025 documented as of this encounter Visit Diagnoses Diagnosis Hemorrhage Subdural Trauma Without Loss Of Consciousness Subsequent- Primary History Of Falling Incomplete Bladder Emptying Personal History Of Malignant Neoplasm Of Prostate Incontinence Fecal Incontinence Urinary Anemia Annual Medicare Examination Return documented in this encounter Care Teams Hand Patcher Relationship Specialty Start Date End Date Diane Riggs M.D. [id number] [phone] PCP - General 11/10/23 documented as of this encounter
--- OUTSIDE RECORDS SUMMARY | 2024-07-04 22:59 | XMS_ITS | Continuity of Care Document ---
Author Name [facility] User [email or web address] Address Unknown Organization Unknown Address Unknown Encounters FILTER APPLIED:Only known Encounters with Admission Date within the last 5 years Encounter Location Admission Discharge Billing Code Statistical Assistant [facility]
--- OUTSIDE RECORDS SUMMARY | 2024-07-04 22:59 | XMS_ITS | Encounter Summary ---
Author Organization [facility] Address [address] [place] [address] Care Team Providers Care Drilling Manager Name Role Phone Diane Riggs M.D. Primary Care Provider +1- [phone] Encounter Details Date Type Department Care Team (Late st Contact Info) Description 07/04/2024 7:44 PM FUNERAL DIRECTOR/EMBALMER/OWNER - 07/04/2024 8:58 PM FUNERAL DIRECTOR/EMBALMER/OWNER Emergency [facility] [address] [place] [phone] Eliceo Garcia, P.A.-C. [address] [place] [phone] Acute Cystitis With Hematuria (Primary Dx) Discharge Disposition: Home or Self Care Social History Tobacco Use Types Packs/Day Years Used Date Smoking Tobacco: Never Smokeless Tobacco: Never Alcohol Use Standard Drinks/Week Comments No 0 (1 standard drink = 0.6 oz pur e alcohol) [facility] Utilities Answer Date Recorded In the past 12 months has [employer], gas, oil, or water company threatened to [...] your living situation today? I have a [facility] place to live 07/02/2024 Sex and Gender Information Value Date Recorded Sex Assigned at Male 11/07/2017 10:07 AM CDT Legal Sex Male 6:00 PM FUNERAL DIRECTOR/EMBALMER/OWNER Gender Identity Male 11/07/2017 10:07 AM CDT Sexual Orientation Straight 11/07/2017 10 :07 AM CDT documented as of this encounter Last Filed Vital Signs Vital Sign Reading Time Taken Comments Blood Pressure 127/86 07/04/2024 8:30 PM FUNERAL DIRECTOR/EMBALMER/OWNER Pulse 75 07/04/2024 8:30 PM FUNERAL DIRECTOR/EMBALMER/OWNER Temperature - - Respiratory Rate 21 07/04/2024 8:30 PM FUNERAL DIRECTOR/EMBALMER/OWNER Oxygen Saturation 97% 07/04/2024 8:30 PM FUNERAL DIRECTOR/EMBALMER/OWNER Inhaled Oxygen Concentration - - Weight - - Height - - Body Mass Index - - documented in this encounter Discharge Instructions * Discharge Instructions* Eliceo Garcia, P.A.-C. - 07/04/2024 8:38 PM FUNERAL DIRECTOR/EMBALMER/OWNER Please return to the ER immediately if new symptoms develop, symptoms fail to improve, symptoms worsen, or you becomes concerned RAL DIRECTOR/EMBALMER/OWNER * Attachments The following attachments cannot be sent through Care Everywhere. * Urinary Tract Infection Adult (Hungarian) documented in this encounter Medications at Time of Discharge calcium carbonate 1,500 mg (600 mg calcium) tablet Take 600 mg by mouth. Takes half a tablet daily 07/07/2010 cefdinir (Omnicef) 300 mg capsuleIndicatio ns:Acute Cystitis With Hematuria Take 1 capsule (300 mg total) by mouth every 12 (twelve) hours. 14 capsule 07/04/2024 DME Urological suppliesIndicati ons:Incomplete Bladder Emptying Other: Ant[facility] [place] 1 Unspecified 03/07/2023 multivitamin tablet Take 0.5 tablets by mouth. 07/07/2010 documented as of this encounter Plan of Treatment Not on file documented as of this encounter Procedures Procedure Name Priority Date/Time Associated Diagnosis Comments URINALYSIS WITH MICROSCOPIC IF INDICATED, U Routine 07/04/2024 7:57 PM FUNERAL DIRECTOR/EMBALMER/OWNER MICROSCOPIC MANUAL Routine 07/04/2024 7: 57 PM FUNERAL DIRECTOR/EMBALMER/OWNER CBC WITH DIFFERENTIAL, B STAT 07/04/2024 7:55 PM FUNERAL DIRECTOR/EMBALMER/OWNER COMPREHENSIVE METABOLIC PANEL, S/P STAT 07/04/2024 7:55 PM FUNERAL DIRECTOR/EMBALMER/OWNER ECG STAT 07/04/2024 7:37 PM FUNERAL DIRECTOR/EMBALMER/OWNER documented in this encounter Results * (ABNORMAL) Microscopic Manual (07/04/2024 7:57 PM FUNERAL DIRECTOR/EMBALMER/OWNER) White Blood Cells 41-50(A) /hpf 07/04/2024 8:13 PM FUNERAL DIRECTOR/EMBALMER/OWNER CNFL Comment: ----REFERENCE VALUE---- Males: 0-3 Females: 0-10 Unknown: 0-10 Red Blood Cells 3-10(A) 0 - 2 /hpf 8:13 PM FUNERAL DIRECTOR/EMBALMER/OWNER CNFL Dysmorphic Red Blood Cells <=25 <=25 % 07/04/2024 8:13 PM FUNERAL DIRECTOR/EMBALMER/OWNER CNFL Squamous Cells Occ-3 /hpf 07/04/2024 8:13 PM FUNERAL DIRECTOR/EMBALMER/OWNER CNFL Bacteria Present(A) None Seen 07/04/2024 8:13 PM FUNERAL DIRECTOR/EMBALMER/OWNER CNFL Urine 07/04/2024 7:57 PM FUNERAL DIRECTOR/EMBALMER/OWNER 07/04/2024 8:01 PM FUNERAL DIRECTOR/EMBALMER/OWNER Eliceo Garcia P.A.-C. LAB URINE ORDERABLES Fin al Result [facility] [address] [place] [id number], [facility] CNFL [facility] [place] [address] * (ABNORMAL) Urinalysis with Microscopic if Indicated: Urine, Midstream (07/04/2024 7:57 PM FUNERAL DIRECTOR/EMBALMER/OWNER) Source Urine, Urine, Midstream 07/04/2024 8:01 PM FUNERAL DIRECTOR/EMBALMER/OWNER CNFL Clarity Cloudy(A) Clear 07/04/2024 8:04 PM FUNERAL DIRECTOR/EMBALMER/OWNER CNFL Color Yellow 07/04/2024 8:04 PM FUNERAL DIRECTOR/EMBALMER/OWNER CNFL Comment: ----REFERENCE VALUE---- Colorless Yellow Kayla Blood Small(A) Negative 07/04/2024 8:04 PM FUNERAL DIRECTOR/EMBALMER/OWNER CNFL Nitrite Negative Negative 07/04/2024 8:04 PM FUNERAL DIRECTOR/EMBALMER/OWNER CNFL Leukocyte Esterase Large(A) Negative 07/04/2024 8:04 PM FUNERAL DIRECTOR/EMBALMER/OWNER CNFL Protein 30(A) mg/dL 07/04/2024 8:04 PM FUNERAL DIRECTOR/EMBALMER/OWNER CNFL Comment: ----REFERENCE VALUE---- Negative Trace Glucose Negative Negative mg/dL 07/04/2024 8:04 PM FUNERAL DIRECTOR/EMBALMER/OWNER CNFL Ketones, QI(U) Negative Negative mg/dL 07/04/2024 8:04 PM FUNERAL DIRECTOR/EMBALMER/OWNER CNFL Bilirubin Negative Negative 07/04/2024 8:04 PM FUNERAL DIRECTOR/EMBALMER/OWNER CNFL pH 7.0 5.0 - 8.0 07/04/2024 8:04 PM FUNERAL DIRECTOR/EMBALMER/OWNER CNFL Specific [place] 1.015 1.001 - 1.035 07/04/2024 8:04 PM FUNERAL DIRECTOR/EMBALMER/OWNER CNFL Urobilinogen 0.2 0.2 - 1.0 mg/dL 07/04/2024 8:04 PM FUNERAL DIRECTOR/EMBALMER/OWNER CNFL Urine (Urine, Midstream) 07/04/2024 7:57 PM FUNERAL DIRECTOR/EMBALMER/OWNER 07/04/2024 8:01 PM FUNERAL DIRECTOR/EMBALMER/OWNER us Eliceo Garcia P.A.-C. LAB URINE ORDERABLES Fin al Result [facility] [address] [place] [phone], [facility] CNFL [facility] in [address] [address] * (ABNORMAL) Comprehensive Metabolic Panel (07/04/2024 7:55 PM FUNERAL DIRECTOR/EMBALMER/OWNER) Potassium, P 4.9 3.6 - 5.2 mmol/L 07/04/2024 8:18 PM FUNERAL DIRECTOR/EMBALMER/OWNER CNFL Sodium, P 140 135 - 145 mmol/L 07/04/2024 8:18 PM FUNERAL DIRECTOR/EMBALMER/OWNER CNFL Chloride, P 102 98 - 107 mmol/L 07/04/2024 8:18 PM FUNERAL DIRECTOR/EMBALMER/OWNER CNFL Bicarbonate, P 32(H) 22 - 29 mmol/L 07/04/2024 8:19 PM FUNERAL DIRECTOR/EMBALMER/OWNER CNFL Anion Gap, P 6(L) 7 - 15 07/04/2024 8:18 PM FUNERAL DIRECTOR/EMBALMER/OWNER CNFL BUN (Blood Urea Nitrogen), P 19 8 - 24 mg/dL 07/04/2024 8:19 PM FUNERAL DIRECTOR/EMBALMER/OWNER CNFL Creatinine 0.97 0.74 - 1.35 mg/dL 07/04/2024 8:19 PM FUNERAL DIRECTOR/EMBALMER/OWNER CNFL Estimated GFR (eGFR) 77 >=60 mL/min/BS A 07/04/2024 8:19 PM FUNERAL DIRECTOR/EMBALMER/OWNER CNFL Comment: Estimated GFR calculated using the 2020 CKD_EPI creatinine equation. Calcium, Total, P 9.1 8.8 - 10.2 mg/dL 07/04/2024 8:19 PM FUNERAL DIRECTOR/EMBALMER/OWNER CNFL Glucose, P 108 70 - 140 mg/dL 07/04/2024 8:19 PM FUNERAL DIRECTOR/EMBALMER/OWNER CNFL Protein, Total, P 6.1(L) 6.3 - 7.9 g/dL 07/04/2024 8:19 PM FUNERAL DIRECTOR/EMBALMER/OWNER CNFL Albumin, P 3.8 3.5 - 5.0 g/dL 07/04/2024 8:19 PM FUNERAL DIRECTOR/EMBALMER/OWNER CNFL Aspartate Aminotransferase (AST), P 35 8 - 48 U/L 07/04/2024 8:19 PM FUNERAL DIRECTOR/EMBALMER/OWNER CNFL Alkaline Phosphatase, P 82 40 - 129 U/L 07/04/2024 8:19 PM FUNERAL DIRECTOR/EMBALMER/OWNER CNFL Alanine Aminotransferase (ALT), P 18 7 - 55 U/L 07/04/2024 8:19 PM FUNERAL DIRECTOR/EMBALMER/OWNER CNFL Bilirubin, Total, P 0.4 0.0 - 1.2 mg/dL 07/04/2024 8:19 PM FUNERAL DIRECTOR/EMBALMER/OWNER CNFL Blood (Blood, Venous) 07/04/2024 7:55 PM FUNERAL DIRECTOR/EMBALMER/OWNER 07/04/2024 8:00 PM FUNERAL DIRECTOR/EMBALMER/OWNER us Eliceo Garcia P.A.-C. LAB BLOOD ADD-ON Final R esult [facility] [place] [address], [facility] [place] [address] * (ABNORMAL) CBC with Differential, Blood (07/04/2024 7:55 PM FUNERAL DIRECTOR/EMBALMER/OWNER) Hemoglobin 13.1(L) 13.2 - 16.6 g/dL 07/04/2024 8:05 PM FUNERAL DIRECTOR/EMBALMER/OWNER CNFL Hematocrit 39.8 38.3 - 48.6 % 07/04/2024 8:05 PM FUNERAL DIRECTOR/EMBALMER/OWNER CNFL Erythrocytes 4.42 4.35 - 5.65 x10(12)/L 07/04/2024 8:05 PM FUNERAL DIRECTOR/EMBALMER/OWNER CNFL MCV 90.0 78.2 - 97.9 fL 07/04/2024 8:05 PM FUNERAL DIRECTOR/EMBALMER/OWNER CNFL RBC Distrib Width 12.1 11.8 - 14.5 % 07/04/2024 8:05 PM FUNERAL DIRECTOR/EMBALMER/OWNER CNFL Platelet Count 225 135 - 317 x10(9)/L 07/04/2024 8:05 PM FUNERAL DIRECTOR/EMBALMER/OWNER CNFL Leukocytes 7.8 3.4 - 9.6 x10(9)/L 07/04/2024 8:05 PM FUNERAL DIRECTOR/EMBALMER/OWNER CNFL Neutrophils 5.93 1.56 - 6.45 x10(9)/L 07/04/2024 8:05 PM FUNERAL DIRECTOR/EMBALMER/OWNER CNFL Lymphocytes 1.10 0.95 - 3.07 x10(9)/L 07/04/2024 8:05 PM FUNERAL DIRECTOR/EMBALMER/OWNER CNFL Monocytes 0.68 0.26 - 0.81 x10(9)/L 07/04/2024 8:05 PM FUNERAL DIRECTOR/EMBALMER/OWNER CNFL Eosinophils 0.08 0.03 - 0.48 x10(9)/L 07/04/2024 8:05 PM FUNERAL DIRECTOR/EMBALMER/OWNER CNFL Basophils <0.04 0.01 - 0.08 x10(9)/L 07/04/2024 8:05 PM FUNERAL DIRECTOR/EMBALMER/OWNER CNFL Blood (Blood, Venous) 07/04/2024 7:55 PM FUNERAL DIRECTOR/EMBALMER/OWNER 07/04/2024 8:00 PM FUNERAL DIRECTOR/EMBALMER/OWNER us Eliceo Garcia P.A.-C. LAB BLOOD ADD-ON Final R esult [facility] [address] [place] [address], [facility] [place] [address] * ECG 12 Lead (07/04/2024 7:37 PM FUNERAL DIRECTOR/EMBALMER/OWNER) Ventricular Rate ECG/Min 73 BPM MUSE [place] Interval 162 ms MUSE QRSD Interval 94 ms MUSE QT Interval 376 ms MUSE QTC Interval 414 ms MUSE P [place] 77 degrees MUSE R [place] 58 degrees MUSE T Wave [place] 71 degrees MUSE 07/04/2024 7:37 PM FUNERAL DIRECTOR/EMBALMER/OWNER 07/04/2024 7:51 PM FUNERAL DIRECTOR/EMBALMER/OWNER Impressions MUSE - 07/04/2024 7:41 PM FUNERAL DIRECTOR/EMBALMER/OWNER Normal sinus rhythm When compared with ECG of 08-Nov-2017 18:23, Premature ventricular complexes are no longer present QT has shortened Narrative Procedure Note Ethan Clay M.D. - 07/04/2024 IMPRESSION: Normal sinus rhythm When compared with ECG of 08-Nov-2017 18:23, Premature ventricular complexes are no longer present QT has shortened us Eliceo Garcia P.A.-C. ECG ORDERABLES Edited R esult - Final MUSE NA documented in this encounter Visit Diagnoses Diagnosis Acute Cystitis With Hematuria- Primary documented in this encounter Care Teams Drilling Manager Relationship Specialty Start Date End Date Diane Riggs M.D. [id number] [place] [phone] PCP - General 11/10/23 documented as of this encounter
--- OUTSIDE RECORDS SUMMARY | 2024-07-04 22:59 | XMS_ITS | Referral Summary ---
Author Organization [facility] Address [address] [place] [address] Care Team Providers Care Assayer Name Role Phone Diane Riggs M.D. Primary Care Provider +1- [phone] Source Comments Patient records contain information from all sites at [facility]. For routine questions regarding patient records, call [phone] during business hours, M-F 8:00 AM - 5:00 PM Central Time. Record requests for emergency care only can be directed to [phone] at any time.[facility] Encounters Date Type Department Care Team Description 07/04/2024 7:44 PM MIXER OPERATOR RAW SALT - 07/04/2024 8:58 PM MIXER OPERATOR RAW SALT Emergency [facility] [address] [place] [phone] Eliceo Garcia, P.A.-C. Acute Cystitis With Hematuria (Primary Dx) Discharge Disposition: Home or Self Care 07/02/2024 12:00 PM MIXER OPERATOR RAW SALT Office Visit Department of Family Medicine, [facility], [address] [phone] Diane Riggs M.D. Matthies, Rebekah M, R.N. Annual Medicare Examination Return (Primary Dx) Discharge Disposition: Home or Self Care 07/02/2024 11:30 AM MIXER OPERATOR RAW SALT Office Visit Department of Family Medicine, [facility], [address] [phone] Diane Riggs M.D. Hemorrhage Subdural Trauma Without Loss Of Consciousness Subsequent (Primary Dx); History Of Falling; Incomplete Bladder Emptying; Personal History Of Malignant Neoplasm Of Prostate; Incontinence Fecal; Incontinence Urinary; Anemia; Annual Medicare Examination Return Discharge Disposition: Home or Self Care 06/16/2024 Documentation Department of Neurologic Surgery in [address] [phone] Brea Grissom M.D. 05/30/2024 Clinical Communication Department of Family Medicine, [facility], in [address] [phone] Diane Riggs M.D. PandaDoc Form ([facility] urological supplies) 04/30/2024 Orders Only [facility]gs M.[facility]. from Last 3 Months Allergies No known active allergies Medications calcium carbonate 1,500 mg (600 mg calcium) tablet Take 600 mg by mouth. Takes half a tablet daily 1 Active multivitamin tablet Take 0.5 tablets by mouth. 1 Active DME Urological suppliesIndica tions:Incomple te Bladder Emptying Other: [facility] 1 Unspecified 3 Active cefdinir (Omnicef) 300 mg capsuleIndicat ions:Acute Cystitis With Hematuria Take 1 capsule (300 mg total) by mouth every 12 (twelve) hours. 14 capsule 5 Active Active Problems Problem Noted Date Diagnosed Date Subdural Hematoma Nontraumatic 07/02/2024 History Of Falling 07/02/2024 Incomplete Bladder Emptying 02/05/2020 Personal History Of Malignant Neoplasm Of Prosta te 03/13/2013 Cancer Staging:Clinical stage from 03/08/2013:Stage IIB(T2c, N0, M0, PSA: 10 to 19, [place] 7) - Signed by Kwabena Alvares M.D. on 01/25/2018 Resolved Problems Problem Noted Date Diagnosed Date Resolved Date Polyp Colon 10/07/2010 07/02/2024 Overview (07/02/2024): Colonoscopy 09/2010 polyp repeat in 5 years Immunizations Name Administration Dates Next Due H1N1 All Forms 06/08/2009 HZV (ZOSTAVAX) 08/10/2012 Influenza TIV (IM) 04/05/2019, 8,04/07/2017,2012,05/21/2012,04/15/2011,06/08/2009,1 07/15/2006 Influenza high dose QV(65 ye ars or older) (PF) 04/09/2020 Influenza, Quadrivalent, Adj uvanted, Preservative Free 03/28/2023,04/22/2022,05/04/2021 PCV13 07/11/2014 PPSV23 06/29/2012 RSV: respiratory syncytial v irus (AREXVY) recombinant vaccine 04/06/2023 RZV (SHINGRIX) 07/23/2018,05/01/2018,01/13/2018 SARS-COV-2 (COVID-19) - MODERNA(Discontinued) 10/02/2020,09/04/2020 Td Preservative Free (TENIVA C, DECAVAC) 07/07/2010 Tdap 06/20/2012 influenza trivalent high dos e (HD)(PF) 04/29/2024,04/05/2019,04/19/2018,2015,04/16/2014 Social History Tobacco Use Types Packs/Day Years Used Date Smoking Tobacco: Never Smokeless Tobacco: Never Alcohol Use Standard Drinks/Week Comments No 0 (1 standard drink = 0.6 oz pur e alcohol) [facility] Utilities Answer Date Recorded In the past 12 months has [employer], [employer], oil, or water [employer] threatened to shut off services in your [...] money to buy more. Never true 07/02/19 Within the past 12 months, t he [...] your living situation today? I have a [facility] place to live 07/02/2024 Sex and Gender Information Value Date Recorded Sex Assigned at Male 11/07/2017 10:07 AM CDT Legal Sex Male 6:00 PM MIXER OPERATOR RAW SALT Gender Identity Male 11/07/2017 10:07 AM CDT Sexual Orientation Straight 11/07/2017 10 :07 AM CDT Last Filed Vital Signs Vital Sign Reading Time Taken Comments Blood Pressure 127/86 07/04/2024 8:30 PM MIXER OPERATOR RAW SALT Pulse 75 07/04/2024 8:30 PM MIXER OPERATOR RAW SALT Temperature 36.2 C (97.2 F) 12/29/2023 10:48 AM CDT Respiratory Rate 21 07/04/2024 8:30 PM MIXER OPERATOR RAW SALT Oxygen Saturation 97% 07/04/2024 8:30 PM MIXER OPERATOR RAW SALT Inhaled Oxygen Concentration - - Weight 66.2 kg (145 lb 15.1 oz) 025 11:21 AM MIXER OPERATOR RAW SALT Height 174.5 cm (5' 8.7) 07/02/2024 11 :21 AM MIXER OPERATOR RAW SALT Body Mass Index 21.74 07/02/2024 11:21 AM MIXER OPERATOR RAW SALT Plan of Treatment Not on file Medical Devices Implanted Type Area Dumpling Machine Operator Device Identifier Shelf Expiration Date Model / Serial / Lot Marker Gold Seed - [id number] Implanted:Qty: 4 on 07/01/2013 [facility] Other [email or web address] Description:Device Manufactu rer - [employer]. Device Status Text - [id number]. Stnt Uret Inl 7fx22 - [id number] Implanted:Qty: 1 on 11/08/2017 by Jose C Arias M.D., M.S. at [facility] Ureteral Stent C.R.Bard [id number] 06/02/2021 [id number] / / [id number] Stnt Uret Inl 7fx22 - [id number] Implanted:Qty: 1 on 11/08/2017 by Jose C Arias M.D., M.S. at [facility] Ureteral Stent C.R.Bard [id number] 06/02/2021 [id number] / / [id number] Conversions - Default Historical Implant Device Implanted:11/04 (Quantity not on file) Urologic Other Description:Device Status Te xt - UrologOth. radiation beads. Procedures Procedure Name Priority Date/Time Associated Diagnosis Comments MICROSCOPIC MANUAL Routine 07/04/2024 7: 57 PM MIXER OPERATOR RAW SALT URINALYSIS WITH MICROSCOPIC IF INDICATED, U Routine 07/04/2024 7:57 PM MIXER OPERATOR RAW SALT COMPREHENSIVE METABOLIC PANEL, S/P STAT 07/04/2024 7:55 PM MIXER OPERATOR RAW SALT CBC WITH DIFFERENTIAL, B STAT 07/04/2024 7:55 PM MIXER OPERATOR RAW SALT ECG STAT 07/04/2024 7:37 PM MIXER OPERATOR RAW SALT OUTSIDE CT NEURO Routine 06/16/2024 10:0 0 PM MIXER OPERATOR RAW SALT OUTSIDE CT NEURO Routine 06/16/2024 3:55 PM MIXER OPERATOR RAW SALT OUTSIDE CT NEURO Routine 06/16/2024 3:50 PM MIXER OPERATOR RAW SALT from Last 3 Months Results * (ABNORMAL) Urinalysis with Microscopic if Indicated: Urine, Midstream (07/04/2024 7:57 PM MIXER OPERATOR RAW SALT) Source Urine, Urine, Midstream 07/04/2024 8:01 PM MIXER OPERATOR RAW SALT CNFL Clarity Cloudy(A) Clear 07/04/2024 8:04 PM MIXER OPERATOR RAW SALT CNFL Color Yellow 07/04/2024 8:04 PM MIXER OPERATOR RAW SALT CNFL Comment: ----REFERENCE VALUE---- Colorless Yellow Kayla Blood Small(A) Negative 07/04/2024 8:04 PM MIXER OPERATOR RAW SALT CNFL Nitrite Negative Negative 07/04/2024 8:04 PM MIXER OPERATOR RAW SALT CNFL Leukocyte Esterase Large(A) Negative 07/04/2024 8:04 PM MIXER OPERATOR RAW SALT CNFL Protein 30(A) mg/dL 07/04/2024 8:04 PM MIXER OPERATOR RAW SALT CNFL Comment: ----REFERENCE VALUE---- Negative Trace Glucose Negative Negative mg/dL 07/04/2024 8:04 PM MIXER OPERATOR RAW SALT CNFL Ketones, QI(U) Negative Negative mg/dL 07/04/2024 8:04 PM MIXER OPERATOR RAW SALT CNFL Bilirubin Negative Negative 07/04/2024 8:04 PM MIXER OPERATOR RAW SALT CNFL pH 7.0 5.0 - 8.0 07/04/2024 8:04 PM MIXER OPERATOR RAW SALT CNFL Specific Mullan 1.015 1.001 - 1.035 07/04/2024 8:04 PM MIXER OPERATOR RAW SALT CNFL Urobilinogen 0.2 0.2 - 1.0 mg/dL 07/04/2024 8:04 PM MIXER OPERATOR RAW SALT CNFL Urine (Urine, Midstream) 07/04/2024 7:57 PM MIXER OPERATOR RAW SALT 07/04/2024 8:01 PM MIXER OPERATOR RAW SALT us Eliceo Garcia P.A.-C. LAB URINE ORDERABLES Fin al Result [facility] [address] [place] [phone], [facility] [address] [address] * (ABNORMAL) Microscopic Manual (07/04/2024 7:57 PM MIXER OPERATOR RAW SALT) White Blood Cells 41-50(A) /hpf 07/04/2024 8:13 PM MIXER OPERATOR RAW SALT CNFL Comment: ----REFERENCE VALUE---- Males: 0-3 Females: 0-10 Unknown: 0-10 Red Blood Cells 3-10(A) 0 - 2 /hpf 8:13 PM MIXER OPERATOR RAW SALT CNFL Dysmorphic Red Blood Cells <=25 <=25 % 07/04/2024 8:13 PM MIXER OPERATOR RAW SALT CNFL Squamous Cells Occ-3 /hpf 07/04/2024 8:13 PM MIXER OPERATOR RAW SALT CNFL Bacteria Present(A) None Seen 07/04/2024 8:13 PM MIXER OPERATOR RAW SALT CNFL Urine 07/04/2024 7:57 PM MIXER OPERATOR RAW SALT 07/04/2024 8:01 PM MIXER OPERATOR RAW SALT us Eliceo Garcia P.A.-C. LAB URINE ORDERABLES Fin al Result [facility] [address] [place] [address], [facility] CNFL [facility] [place] [address] * (ABNORMAL) CBC with Differential, Blood (07/04/2024 7:55 PM MIXER OPERATOR RAW SALT) Hemoglobin 13.1(L) 13.2 - 16.6 g/dL 07/04/2024 8:05 PM MIXER OPERATOR RAW SALT CNFL Hematocrit 39.8 38.3 - 48.6 % 07/04/2024 8:05 PM MIXER OPERATOR RAW SALT CNFL Erythrocytes 4.42 4.35 - 5.65 x10(12)/L 07/04/2024 8:05 PM MIXER OPERATOR RAW SALT CNFL MCV 90.0 78.2 - 97.9 fL 07/04/2024 8:05 PM MIXER OPERATOR RAW SALT CNFL RBC Distrib Width 12.1 11.8 - 14.5 % 07/04/2024 8:05 PM MIXER OPERATOR RAW SALT CNFL Platelet Count 225 135 - 317 x10(9)/L 07/04/2024 8:05 PM MIXER OPERATOR RAW SALT CNFL Leukocytes 7.8 3.4 - 9.6 x10(9)/L 07/04/2024 8:05 PM MIXER OPERATOR RAW SALT CNFL Neutrophils 5.93 1.56 - 6.45 x10(9)/L 07/04/2024 8:05 PM MIXER OPERATOR RAW SALT CNFL Lymphocytes 1.10 0.95 - 3.07 x10(9)/L 07/04/2024 8:05 PM MIXER OPERATOR RAW SALT CNFL Monocytes 0.68 0.26 - 0.81 x10(9)/L 07/04/2024 8:05 PM MIXER OPERATOR RAW SALT CNFL Eosinophils 0.08 0.03 - 0.48 x10(9)/L 07/04/2024 8:05 PM MIXER OPERATOR RAW SALT CNFL Basophils <0.04 0.01 - 0.08 x10(9)/L 07/04/2024 8:05 PM MIXER OPERATOR RAW SALT CNFL Blood (Blood, Venous) 07/04/2024 7:55 PM MIXER OPERATOR RAW SALT 07/04/2024 8:00 PM MIXER OPERATOR RAW SALT us Eliceo Garcia P.A.-C. LAB BLOOD ADD-ON Final R esult [facility] [address] [place] [address], [facility] [address] * (ABNORMAL) Comprehensive Metabolic Panel (07/04/2024 7:55 PM MIXER OPERATOR RAW SALT) Potassium, P 4.9 3.6 - 5.2 mmol/L 07/04/2024 8:18 PM MIXER OPERATOR RAW SALT CNFL Sodium, P 140 135 - 145 mmol/L 07/04/2024 8:18 PM MIXER OPERATOR RAW SALT CNFL Chloride, P 102 98 - 107 mmol/L 07/04/2024 8:18 PM MIXER OPERATOR RAW SALT CNFL Bicarbonate, P 32(H) 22 - 29 mmol/L 07/04/2024 8:19 PM MIXER OPERATOR RAW SALT CNFL Anion Gap, P 6(L) 7 - 15 07/04/2024 8:18 PM MIXER OPERATOR RAW SALT CNFL BUN (Blood Urea Nitrogen), P 19 8 - 24 mg/dL 07/04/2024 8:19 PM MIXER OPERATOR RAW SALT CNFL Creatinine 0.97 0.74 - 1.35 mg/dL 07/04/2024 8:19 PM MIXER OPERATOR RAW SALT CNFL Estimated GFR (eGFR) 77 >=60 mL/min/BS A 07/04/2024 8:19 PM MIXER OPERATOR RAW SALT CNFL Comment: Estimated GFR calculated using the 2020 CKD_EPI creatinine equation. Calcium, Total, P 9.1 8.8 - 10.2 mg/dL 07/04/2024 8:19 PM MIXER OPERATOR RAW SALT CNFL Glucose, P 108 70 - 140 mg/dL 07/04/2024 8:19 PM MIXER OPERATOR RAW SALT CNFL Protein, Total, P 6.1(L) 6.3 - 7.9 g/dL 07/04/2024 8:19 PM MIXER OPERATOR RAW SALT CNFL Albumin, P 3.8 3.5 - 5.0 g/dL 07/04/2024 8:19 PM MIXER OPERATOR RAW SALT CNFL Aspartate Aminotransferase (AST), P 35 8 - 48 U/L 07/04/2024 8:19 PM MIXER OPERATOR RAW SALT CNFL Alkaline Phosphatase, P 82 40 - 129 U/L 07/04/2024 8:19 PM MIXER OPERATOR RAW SALT CNFL Alanine Aminotransferase (ALT), P 18 7 - 55 U/L 07/04/2024 8:19 PM MIXER OPERATOR RAW SALT CNFL Bilirubin, Total, P 0.4 0.0 - 1.2 mg/dL 07/04/2024 8:19 PM MIXER OPERATOR RAW SALT CNFL Blood (Blood, Venous) 07/04/2024 7:55 PM MIXER OPERATOR RAW SALT 07/04/2024 8:00 PM MIXER OPERATOR RAW SALT Eliceo Garcia P.A.-C. LAB BLOOD ADD-ON Final R esult [facility] [address] [place] [address], [facility] CNFL [facility] in [address] [address] * ECG 12 Lead (07/04/2024 7:37 PM MIXER OPERATOR RAW SALT) Ventricular Rate ECG/Min 73 BPM MUSE NV Interval 162 ms MUSE QRSD Interval 94 ms MUSE QT Interval 376 ms MUSE QTC Interval 414 ms MUSE P [place] 77 degrees MUSE R [place] 58 degrees MUSE T Wave [place] 71 degrees MUSE 07/04/2024 7:37 PM MIXER OPERATOR RAW SALT 07/04/2024 7:51 PM MIXER OPERATOR RAW SALT Impressions MUSE - 07/04/2024 7:41 PM MIXER OPERATOR RAW SALT Normal sinus rhythm When compared with ECG of 08-Nov-2017 18:23, Premature ventricular complexes are no longer present QT has shortened Narrative Procedure Note Ethan Clay M.D. - 07/04/2024 IMPRESSION: Normal sinus rhythm When compared with ECG of 08-Nov-2017 18:23, Premature ventricular complexes are no longer present QT has shortened us Eliceo Garcia P.A.-C. ECG ORDERABLES Edited R esult - Final Performing Organization Address City/[facility] Co de Phone Number MUSE NA * CT HEAD/BRAIN WO CON-Outside CT Neuro (06/16/2024 10:00 PM MIXER OPERATOR RAW SALT) Only the most recent of3 resultswithin the time period is included. 06/16/2024 10:0 0 PM MIXER OPERATOR RAW SALT Narrative IIMS - 06/16/2024 11:48 PM MIXER OPERATOR RAW SALT This order has been created and auto-finalized to support the import of outside images. If available, original interpretation can be found on the Media Tab in Chart Review, in Document Viewer, as an image in QREADS or as an Addendum. If a re-interpretation or overread is required please follow defined workflow. us Provider Not In System IMG CT PROCEDURES Final R esult Performing Organization Address City/[facility] Co de Phone Number IIMS NA from Last 3 Months Insurance [place] [address] Care Teams Assayer Relationship Specialty Start Date End Date Diane Riggs M.D. [address] [place] [phone] PCP - General 11/10/23
--- OUTSIDE RECORDS SUMMARY | 2024-07-04 22:59 | XMS_ITS ---
Author Organization [facility] Address [address] [place] [address] Care Team Providers Care Pure Pak Machine Operator Name Role Phone Unavailable Unavailable Unavailable Surgery Details Not on file Complications Check Surgery Details section. Procedure Estimated Blood Loss Check Surgery Details section. Procedure Findings Check Surgery Details section. Procedure Specimens Taken Check Surgery Details section.
--- OUTSIDE RECORDS SUMMARY | 2024-07-04 22:59 | XMS_ITS | Encounter Summary ---
Author Organization [facility] Address [address] [place] [address] Care Team Providers Care Steam Tank Operator Name Role Phone Diane Riggs M.D. Primary Care Provider +1- [phone] Reason for Referral * Outpatient (Routine) - Authorized Specialty Diagnoses / Procedures Referred By Michelle gardner Referred To Contact Diane Riggs M.D. [id number] [place] [phone] Phone: tel: fax: [facility] Region Referral ID Status Reason Start Date Expiration Date V isits Requested Visits Authorized [id number] Authorized 07/02/2024 01/01/2026 1 1 Scheduling Instructions 12-Month Medicare Visit TANNER Reason for Visit * Reason Comments Medicare Annual Wellness Visit Subsequen t * Outpatient (Routine) - Closed Specialty Diagnoses / Procedures Referred By Michelle gardner Referred To Contact Diane Riggs M.D. [id number] [place] [phone] Phone: tel: fax: [facility] Region Referral ID Status Reason Start Date Expiration Date Visits Re quested Visits Authorized [id number] Closed 04/30/2024 10/30/2025 1 1 Encounter Details Date Type Department Care Team (Late st Contact Info) Description 07/02/2024 12:00 PM [place] Office Visit Department of Family Medicine, [facility], in [address] [phone] Diane Riggs M.D. [address] [place] [phone] Lyric Hurley R.N. [address] [place] [phone] Annual Medicare Examination Return (Primary Dx) Discharge Disposition: Home or Self Care Social History Tobacco Use Types Packs/Day Years Used Date Smoking Tobacco: Never Smokeless Tobacco: Never Alcohol Use Standard Drinks/Week Comments No 0 (1 standard drink = 0.6 oz pur e alcohol) [facility] Utilities Answer Date Recorded In the past 12 months has [employer], gas, oil, or water [employer] threatened to shut off services in your [...] your living situation today? I have a [place] place to live 07/02/2024 Sex and Gender Information Value Date Recorded Sex Assigned at Male 11/07/2017 10:07 AM CDT Legal Sex Male 6:00 PM O[place] T[place]NER Gender Identity Male 11/07/2017 10:07 AM CDT Sexual Orientation Straight 11/07/2017 10 :07 AM CDT documented as of this encounter Progress Notes * Lyric Hurley R.N. - 07/02/2024 12:00 PM CST HEALTH ASSESSMENT Reason For Visit Patient presents with Medicare Annual Wellness Visit Subsequent Face to Face The following portions of the patient's history were reviewed and updated as appropriate: allergies, medications, family history, social history, surgical history and care team/suppliers. VITALS Blood Pressure: 136/82 (07/02/2024 11:21 AM) Pulse Rate: 81 (07/02/2024 11:21 AM) Resp Rate: 16 (07/02/2024 11:21 AM) BMI (Calculated): 21.7 kg/m?? (07/02/2024 11:21 AM) Height: 174.5 cm (07/02/2024 11:21 AM) Weight: 66.2 kg (07/02/2024 11:21 AM) Health Risk Assessment and Social Determinants of Health Health Risk Assessment (HRA) completed and reviewed: Yes Social Determinants of Health (SDOH) questionnaires were reviewed during this visit. The following concerns were prioritized to be addressed: Here today with daughter, Cornelia for post hospital falls. Would like to be referred to [place] [facility]ist. Pt very active not only with outside gardening and [employer] but also in his home gym of treadmill, recumbent and free weights. He denies any side effects today from falls. He admits to being stressed this past fall with extra yard work and spouse's health issues that may have contributed to his first outside fall where he hit back of head. Depression Screening PHQ-2 Score: (Patient-Rptd) 0 Cognitive Assessment Cognitive function assessed by direct observation without concerns. Current Opioid Use None Education regarding non-opioid options for pain management not applicable at this time. FUNCTIONAL/HOME ENVIRONMENT Home Safety Patient's home contains the following: Throw Rugs No. Adequate lighting: Yes. Slippery bathtub and/or shower surfaces: No. Grab bars installed in the bathroom: Yes. Handrails on steps/stairs: Yes. Functional smoke/carbon monoxide alarms: Yes. Patient is reminded to change the batteries every 6 months if device is not A/C powered or hard-wired into the home. Advance Directive Advance Directives: Not Received Advance directive information given. Preventive Services Schedule Health Maintenance Topic Date Due Visit: Annual, age 65+ (or Medicare and <65) Never done DTaP,Tdap,and Td Vaccines (2 - Td or Tdap) 06/20/2022 Fall Risk Screen (Annual) Never done Visit: Medicare Annual Wellness 07/03/2025 Depression Screening (Annual PHQ-2) Completed COVID-19 Vaccine Completed RSV vaccine - (32-36 weeks) or 60+ years Completed Pneumococcal vaccine (50+ years) Completed Influenza Vaccine Completed Zoster Vaccines Completed IPV Vaccines Aged Out After Visit Summary (AVS) reviewed and patient provided with printed copy TANNER documented in this encounter Plan of Treatment Scheduled Referrals Name Type Priority Associated Diagnoses Orde r Schedule Primary Care nurse visit (clinic) - [facility] Region; Medicare Annual Wellness Outpatient Referral Routine Expected: 07/02/2025 (Approximate), Expires: 09/30/2025 documented as of this encounter Visit Diagnoses Diagnosis Annual Medicare Examination Return- Primary documented in this encounter Care Teams Steam Tank Operator Relationship Specialty Start Date End Date Diane Riggs M.D. [address] [place] [phone] PCP - General 11/10/23 documented as of this encounter
--- OUTSIDE RECORDS SUMMARY | 2024-07-04 22:59 | XMS_ITS | Encounter Summary ---
Author Organization [facility] Address [address] [place] [address] Care Team Providers Care Crown Blocker Name Role Phone Diane Riggs M.D. Primary Care Provider +1- [phone] Reason for Visit * Reason Onset Date Comments PandaDoc Form 05/30/2024 [facility] Encounter Details Date Type Department Care Team (Latest Contact Info) Description 05/30/2024 Clinical Communication Department of Family Medicine, [facility], in [address] [phone] Diane Riggs M.D. [address] [place] [phone] PandaDoc Form ([facility]) Social History Tobacco Use Types Packs/Day Years Used Date Smoking Tobacco: Never Smokeless Tobacco: Never Alcohol Use Standard Drinks/Week Comments No 0 (1 standard drink = 0.6 oz pur e alcohol) PHQ-2 Answer Date Recorded PHQ-2 Score 0 09/15/2021 Nutrition Answer Date Recorded Nutrition: EVOO Fat Source 13 01/20 Nutrition: Servings of Fruits/Vegetables per Day Not on file 01/21/2020 Dental Answer Date Recorded Dental: Regular Dentist Unknown 08/17/19 21 Sex and Gender Information Value Date Recorded Sex Assigned at Male 11/07/2017 10:07 AM CDT Legal Sex Male 6:00 PM CORPORATE STATISTICAL FINANCIAL ANALYST Gender Identity Male 11/07/2017 10:07 AM CDT Sexual Orientation Straight 11/07/2017 10 :07 AM CDT documented as of this encounter Miscellaneous Notes * Telephone Encounter - Kori Evans - 06/05/2024 8:56 AM CST Form faxed back to facility and sent for scanning. ORATE STATISTICAL FINANCIAL ANALYST * Telephone Encounter - Kori Evans - 05/30/2024 9:15 AM CST Form was routed to Dr. Riggs for electronic review/signature. 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 [address] [place] [phone] PCP - General 11/10/23 documented as of this encounter
--- OUTSIDE RECORDS SUMMARY | 2024-07-04 22:59 | XMS_ITS | Clinical Summary ---
Author Organization [facility] Address [place], [place] [address] Care Team Providers Care Scrape Gatherer Name Role Phone Denis Buchanan MD Unavailable [phone] Kwabena Alvares MD Unavailable Unavailabl e Joshua Duran MD Primary Care Provider Allergies No known active allergies Medications multivitamin (MVI) tablet Take 1 tablet by mouth once daily. 0 011 Active calcium carbonate, Each tab delivers 600 mg Calcium, (CALTRATE 600) 600 mg (1,500 mg) tablet Take 1 tablet by mouth once daily with a meal. 0 011 Active aspirin enteric coated 81 mg tabletIndications:Pure hypercholesterolemia Take one tab twice weekly 0 013 Active phenylephrine-shark liver oil-cocoa butter (PREPARATION H) 0.25-3 % suppositoryIndications: Hemorrhoid Insert 1 Suppository rectally 4 times daily if needed for Hemorrhoid Pain/Itch. 0 015 Active leuprolide acetate (LUPRON DEPOT, 4 MONTH,) 30 mg injectionIndications:Pr ostate cancer (HC) Inject 30 mg IM every 6 months 0 015 Active Active Problems Problem Noted Date Diagnosed Date Prostate cancer 07/11/2014 Overview (07/11/2014): Dx 2012 38 radiation treatments Jun - Aug 2013 Lupron shots Vitamin D deficiency 12/26/2012 Colon polyp 10/07/2010 Overview (10/07/2010): Colonoscopy 09/2010 polyp repeat in 5 years Low back pain 07/15/2008 Resolved Problems Problem Noted Date Diagnosed Date Resolved Date Pure hypercholesterolemia 08/05/2011 Encounters Date Type Department Care Team Description 06/16/2024 Orders Only [facility] Scanner 1 scan: (1-Ord) [place], CT CERVICAL SPINE WO CON, 06/16/2024 from Last 3 Months Immunizations Name Administration Dates Next Due AMB INFLUENZA IIV3 (AGE 65+ YRS) PF (Flu Clinic Only) 04/05/2019,04/19/2018,04/07/2017 AMB Influenza, IIV3 (Age >=3 years)(Flu Clinic Only) 04/22/2010,05/08/2008 Amb Influenza, Inact (High-d ose) (Flu Clinic Only) 04/12/2016,04/16/2015,04/16/2014 COVID-19 vaccine (Moderna 100mcg/0.5mL) PF, MDV 10/02/2020,09/04/2020 Influenza A (H1N1), Inactivated 06/08/2009 Influenza A (H1N1), Inactiva araceli (Age >=3 Years) 06/08/2009 Influenza Virus, Unspecified 04/09/2013, 05/21/2012,04/15/2011,2008,05/15/2007 Influenza, High-dose Quadriv alent Inactivated 04/09/2020 Influenza, IIV3 (Age 6-35 mos) 04/15/2011,2008 Influenza, IIV3 (Age >=3 years) 04/09/20 13,05/21/2012,04/15/2011,2008,05/15/2007 Influenza, Inactivated AIIV4 (Age 65+ Years) Preserv Free 03/28/2023,04/22/2022,05/04/2021 Influenza, Inactivated IIV3 (Age 65+ Years) Preserv Free 04/05/2019,04/19/2018 Pneumococcal Poly,23-Valent (Pneumovax) 06/29/2012 Pneumococcal conj 13-Valent (Prevnar 13) 07/11/2014 Td (Age >=7 Years) 03/12/1998 Td, Preservative Free (age > = 7 Years) 07/07/2010 Tdap 06/20/2012 Zoster (Shingrix-RZV, recombinant) 07/23/2018,,01/13/2018 Zoster (Zostavax-ZVL, live) 08/10/2012 Family History Medical History Relation Name Comments Cancer-prostate Father at 83 f rom mets Diabetes Father Heart Disease Father CABG Stroke Father Good Health Mother born 1915 Good Health Sister 1 Other Sister 1 at 55 from infection and she had Down's Good Health Sister 2 Good Health Sister 3 Relation Name Status Comments Father Mother Sister 1 Sister 2 Sister 3 Social History Tobacco Use Types Packs/Day Years Used Date Smoking Tobacco: Never Smokeless Tobacco: Never Tobacco Cessation:Counseling Given: Yes Alcohol Use Standard Drinks/Week Comments No 0 (1 standard drink = 0.6 oz pur e alcohol) Sex and Gender Information Value Date Recorded Sex Assigned at Not on file Legal Sex Male 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 Gender Identity Not on file Sexual Orientation Not on file Occupation Industry Job Start Date Job End Date retired Not on file Not on file Not on file Obstetrics History Last Filed Vital Signs Vital Sign Reading Time Taken Comments Blood Pressure 116/75 07/17/2015 11:30 AM SPORTS LAWYER Pulse 73 07/17/2015 11:04 AM SPORTS LAWYER Temperature 36.7 C (98 F) 07/17/2015 11:04 AM SPORTS LAWYER Respiratory Rate - - Oxygen Saturation 100% 07/17/2015 11:04 AM SPORTS LAWYER Inhaled Oxygen Concentration - - Weight 74.4 kg (164 lb) 07/17/2015 11:04 AM SPORTS LAWYER Height 174 cm (5' 8.5) 07/17/2015 11:04 AM SPORTS LAWYER Body Mass Index 24.57 07/17/2015 11:04 AM SPORTS LAWYER Plan of Treatment Health Maintenance Due Date Last Done Comments RSV vaccine for adults or (1 - 1-dose 75+ series) 2015 BMI (ht and wt on same day) for age 18+ 07/17/2016 07/17/2015 Depression screening for age 12+ 07/17/2016 07/17/19 16 Medicare Wellness for age 65+ 07/17/2016, 07/11/2014, 02/07/2013, Additional history exists Tetanus booster 06/20/2022 06/20/2012, 06/26, 03/12/1998 COVID-19 vaccine series ( season) 2024 04/05/2022, 05/19/2021, 10/02/2020, Additional history exists Influenza for age 65+ 02/25/2024 03/28/2023 , 04/22/2022, 05/04/2021, Additional history exists Tdap Completed 06/20/2012 Pneumococcal series for age 50+ Completed 5, 06/29/2012 Zoster (shingles) series for age 50+ Completed 07/23/2018, 05/02/2018, 01/13/2018, Additional history exists Procedures Procedure Name Priority Date/Time Associated Diagnosis Comments SCAN-CT INTERPRETATION 06/16/2024 12:00 AM SPORTS LAWYER from Last 3 Months Results * SCAN-CT INTERPRETATION (06/16/2024 12:00 AM SPORTS LAWYER) Anatomical Region Laterality Modality Other us Scanner OTHER Final Result from Last 3 Months Insurance MEDICARE PB ONLY MEDICARE PART B HB ONLY [employer] [place] [employer] Care Teams Scrape Gatherer Relationship Specialty Start Date End Date Joshua Duran MD [address] [place] [address] PCP - General Family Practice 02/24/15 Denis Buchanan MD [address] [place] [address] Gastroenterology 08/05/11 Kwabena Alvares MD [address] [place] [address] [address] Oncology 07/11/14
--- OUTSIDE RECORDS SUMMARY | 2024-07-04 22:59 | XMS_ITS | Clinical Summary ---
Author Organization [facility] Address [address] [place] [address] Care Team Providers Care Tight Rope Walker Name Role Phone Diane Riggs M.D. Primary Care Provider [phone]- [phone] Source Comments Patient records contain information from all sites at [facility]. For routine questions regarding patient records, call [phone] during business hours, M-F 8:00 AM - 5:00 PM Central Time. Record requests for emergency care only can be directed to [phone] at any time.[facility] Allergies No known active allergies Medications calcium carbonate 1,500 mg (600 mg calcium) tablet Take 600 mg by mouth. Takes half a tablet daily 1 Active multivitamin tablet Take 0.5 tablets by mouth. 1 Active DME Urological suppliesIndica tions:Incomple te Bladder Emptying Other: Antione Drug Burton 1 Unspecified 3 Active cefdinir (Omnicef) 300 [...] IIB(T2c, N0, M0, PSA: 10 to 19, Jh 7) - Signed by Kwabena Alvares M.D. on 01/25/2018 Resolved Problems Problem Noted Date Diagnosed Date Resolved Date Polyp Colon 10/07/2010 07/02/2024 Overview (07/02/2024): Colonoscopy 09/2010 polyp repeat in 5 years Encounters Date Type Department Care Team Description 07/04/2024 7:44 PM CHIEF INNOVATION OFFICER - 07/04/2024 8:58 PM CHIEF INNOVATION OFFICER Emergency [facility] [address] [place] [phone] Eliceo Garcia, PLcALc-Tramaine. Acute Cystitis With Hematuria (Primary Dx) Discharge Disposition: Home or Self Care 07/02/2024 12:00 PM CHIEF INNOVATION OFFICER Office Visit Department of [facility] Medicine, [facility], [address] [phone] Diane Riggs M.D. Matthies, Rebekah M, R.N. Annual Medicare Examination Return (Primary Dx) Discharge Disposition: Home or Self Care 07/02/2024 11:30 AM CHIEF INNOVATION OFFICER Office Visit Department of Family Medicine, [facility], in [address] [phone] Diane Riggs M.D. Hemorrhage Subdural Trauma Without Loss Of Consciousness Subsequent (Primary Dx); History Of Falling; Incomplete Bladder Emptying; Personal History Of Malignant Neoplasm Of Prostate; Incontinence Fecal; Incontinence Urinary; Anemia; Annual Medicare Examination Return Discharge Disposition: Home or Self Care 06/16/2024 Documentation Department of Neurologic Surgery in [address] [phone] Brea Grissom M.D. 05/30/2024 Clinical Communication Department of Family Medicine, [facility], in [address] [phone] Diane Riggs M.D. [facility] Form ([facility] urological supplies) 04/30/2024 Orders Only [facility] Diane Roche M.D. from Last 3 Months Immunizations Name Administration Dates Next Due H1N1 [...] influenza trivalent high dos e (HD)(PF) 04/29/2024,04/05/2019,04/19/2018,2015,04/16/2014 Family History Medical History Relation Name Comments Heart disease Father Relation Name Status Comments Daughter Cornelia Alive Father Mother Sister Alive Son 1 Alive Son 2 Alive Social History Tobacco Use Types Packs/Day Years Used Date Smoking Tobacco: Never Smokeless Tobacco: Never Alcohol Use Standard Drinks/Week Comments No 0 (1 standard drink = 0.6 oz pur e alcohol) [facility] Utilities Answer Date Recorded In the past 12 months has e [employer], gas, oil, or water company threatened to [...] your living situation today? I have a [facility] place to live 07/02/2024 Sex and Gender Information Value Date Recorded Sex Assigned at Male 11/07/2017 10:07 AM CDT Legal Sex Male 6:00 PM CHIEF INNOVATION OFFICER Gender Identity Male 11/07/2017 10:07 AM CDT Sexual Orientation Straight 11/07/2017 10 :07 AM CDT Last Filed Vital Signs Vital Sign Reading Time Taken Comments Blood Pressure 127/86 07/04/2024 8:30 PM CHIEF INNOVATION OFFICER Pulse 75 07/04/2024 8:30 PM CHIEF INNOVATION OFFICER Temperature 36.2 C (97.2 F) 12/29/2023 10:48 AM CDT Respiratory Rate 21 07/04/2024 8:30 PM CHIEF INNOVATION OFFICER Oxygen Saturation 97% 07/04/2024 8:30 PM CHIEF INNOVATION OFFICER Inhaled Oxygen Concentration - - Weight 66.2 kg (145 lb 15.1 oz) 025 11:21 AM CHIEF INNOVATION OFFICER Height 174.5 cm (5' 8.7) 07/02/2024 11 :21 AM CHIEF INNOVATION OFFICER Body Mass Index 21.74 07/02/2024 11:21 AM CHIEF INNOVATION OFFICER Plan of Treatment Health Maintenance Due Date Last Done Comments DTaP,Tdap,and Td Vaccines (2 - Td or Tdap) 06/20/2022 06/20/2012, 07/07/2010 Fall Risk Screen (Annual) 06/26/2024 Visit: Annual, age 65+ (or Medicare and <65) 07/02/2025 07/02/2024 Visit: Medicare Annual Wellness 07/03/2025 07/02/2024, 07/02/2024 Pneumococcal vaccine (50+ years) Completed 07/11/2014, 06/29/2012 Zoster Vaccines Completed 07/23/2018, 11/2017, 01/13/2018, Additional history exists RSV vaccine - (32-36 weeks) or 60+ years Completed 04/06/2023 COVID-19 Vaccine Completed 04/29/2024, , 04/06/2023, Additional history exists Influenza Vaccine Completed 04/29/2024, , 04/22/2022, Additional history exists Depression Screening (Annual PHQ-2) Completed 07/02/2024, 07/02/2024 IPV Vaccines Aged Out No longer eligi ble based on patient's age to complete this topic Medical Devices Implanted Type Area Commercial Intelligence Manager Device Identifier Shelf Expiration Date Model / Serial / Lot Marker Gold Seed - [id number] Implanted:Qty: 4 on 07/01/2013 [facility] Other [employer] Description:Device Manufactu rer - HW.. Device Status Text - [id number]. Stnt Uret Inl 7fx22 - [id number] Implanted:Qty: 1 on 11/08/2017 by Jose C Arias M.D., M.S. at [facility] Ureteral Stent C.R.Bard [id number] 06/02/2021 [id number] / / [id number] Stnt Uret Inl 7fx22 - [id number] Implanted:Qty: 1 on 11/08/2017 by Jose C Arias M.D., M.S. at [facility] Ureteral Stent C.R.Bard [id number] 06/02/2021 [id number] / / [id number] Conversions - Default Historical Implant Device Implanted:11/04 (Quantity not on file) Urologic Other Description:Device Status Te xt - UrologOth. radiation beads. Procedures Procedure Name Priority Date/Time Associated Diagnosis Comments MICROSCOPIC MANUAL Routine 07/04/2024 7: 57 PM CHIEF INNOVATION OFFICER URINALYSIS WITH MICROSCOPIC IF INDICATED, U Routine 07/04/2024 7:57 PM CHIEF INNOVATION OFFICER COMPREHENSIVE METABOLIC PANEL, S/P STAT 07/04/2024 7:55 PM CHIEF INNOVATION OFFICER CBC WITH DIFFERENTIAL, B STAT 07/04/2024 7:55 PM CHIEF INNOVATION OFFICER ECG STAT 07/04/2024 7:37 PM CHIEF INNOVATION OFFICER OUTSIDE CT NEURO Routine 06/16/2024 10:0 0 PM CHIEF INNOVATION OFFICER OUTSIDE CT NEURO Routine 06/16/2024 3:55 PM CHIEF INNOVATION OFFICER OUTSIDE CT NEURO Routine 06/16/2024 3:50 PM CHIEF INNOVATION OFFICER from Last 3 Months Results * (ABNORMAL) Urinalysis with Microscopic if Indicated: Urine, Midstream (07/04/2024 7:57 PM CHIEF INNOVATION OFFICER) Source Urine, Urine, Midstream 07/04/2024 8:01 PM CHIEF INNOVATION OFFICER CNFL Clarity Cloudy(A) Clear 07/04/2024 8:04 PM CHIEF INNOVATION OFFICER CNFL Color Yellow 07/04/2024 8:04 PM CHIEF INNOVATION OFFICER CNFL Comment: ----REFERENCE VALUE---- Colorless Yellow Kayla Blood Small(A) Negative 07/04/2024 8:04 PM CHIEF INNOVATION OFFICER CNFL Nitrite Negative Negative 07/04/2024 8:04 PM CHIEF INNOVATION OFFICER CNFL Leukocyte Esterase Large(A) Negative 07/04/2024 8:04 PM CHIEF INNOVATION OFFICER CNFL Protein 30(A) mg/dL 07/04/2024 8:04 PM CHIEF INNOVATION OFFICER CNFL Comment: ----REFERENCE VALUE---- Negative Trace Glucose Negative Negative mg/dL 07/04/2024 8:04 PM CHIEF INNOVATION OFFICER CNFL Ketones, QI(U) Negative Negative mg/dL 07/04/2024 8:04 PM CHIEF INNOVATION OFFICER CNFL Bilirubin Negative Negative 07/04/2024 8:04 PM CHIEF INNOVATION OFFICER CNFL pH 7.0 5.0 - 8.0 07/04/2024 8:04 PM CHIEF INNOVATION OFFICER CNFL Specific [place] 1.015 1.001 - 1.035 07/04/2024 8:04 PM CHIEF INNOVATION OFFICER CNFL Urobilinogen 0.2 0.2 - 1.0 mg/dL 07/04/2024 8:04 PM CHIEF INNOVATION OFFICER CNFL Urine (Urine, Midstream) 07/04/2024 7:57 PM CHIEF INNOVATION OFFICER 07/04/2024 8:01 PM CHIEF INNOVATION OFFICER Eliceo Garcia P.A.-C. LAB URINE ORDERABLES Fin al Result Performing Organization Address [facility] [place] [address], [facility] CNFL [facility] [place] [address] * (ABNORMAL) Microscopic Manual (07/04/2024 7:57 PM CHIEF INNOVATION OFFICER) White Blood Cells 41-50(A) /hpf 07/04/2024 8:13 PM CHIEF INNOVATION OFFICER CNFL Comment: ----REFERENCE VALUE---- Males: 0-3 Females: 0-10 Unknown: 0-10 Red Blood Cells 3-10(A) 0 - 2 /hpf 8:13 PM CHIEF INNOVATION OFFICER CNFL Dysmorphic Red Blood Cells <=25 <=25 % 07/04/2024 8:13 PM CHIEF INNOVATION OFFICER CNFL Squamous Cells Occ-3 /hpf 07/04/2024 8:13 PM CHIEF INNOVATION OFFICER CNFL Bacteria Present(A) None Seen 07/04/2024 8:13 PM CHIEF INNOVATION OFFICER CNFL Urine 07/04/2024 7:57 PM CHIEF INNOVATION OFFICER 07/04/2024 8:01 PM CHIEF INNOVATION OFFICER Eliceo Garcia P.A.-C. LAB URINE ORDERABLES Fin al Result Performing Organization Address City/[facility] [address]/ZIP Co de Phone Number [address] [place] [address], [facility] CNFL [facility] in [address] [address] * (ABNORMAL) CBC with Differential, Blood (07/04/2024 7:55 PM CHIEF INNOVATION OFFICER) [facility] Signature Hemoglobin 13.1(L) 13.2 - 16.6 g/dL 07/04/2024 8:05 PM CHIEF INNOVATION OFFICER CNFL Hematocrit 39.8 38.3 - 48.6 % 07/04/2024 8:05 PM CHIEF INNOVATION OFFICER CNFL Erythrocytes 4.42 4.35 - 5.65 x10(12)/L 07/04/2024 8:05 PM CHIEF INNOVATION OFFICER CNFL MCV 90.0 78.2 - 97.9 fL 07/04/2024 8:05 PM CHIEF INNOVATION OFFICER CNFL RBC Distrib Width 12.1 11.8 - 14.5 % 07/04/2024 8:05 PM CHIEF INNOVATION OFFICER CNFL Platelet Count 225 135 - 317 x10(9)/L 07/04/2024 8:05 PM CHIEF INNOVATION OFFICER CNFL Leukocytes 7.8 3.4 - 9.6 x10(9)/L 07/04/2024 8:05 PM CHIEF INNOVATION OFFICER CNFL Neutrophils 5.93 1.56 - 6.45 x10(9)/L 07/04/2024 8:05 PM CHIEF INNOVATION OFFICER CNFL Lymphocytes 1.10 0.95 - 3.07 x10(9)/L 07/04/2024 8:05 PM CHIEF INNOVATION OFFICER CNFL Monocytes 0.68 0.26 - 0.81 x10(9)/L 07/04/2024 8:05 PM CHIEF INNOVATION OFFICER CNFL Eosinophils 0.08 0.03 - 0.48 x10(9)/L 07/04/2024 8:05 PM CHIEF INNOVATION OFFICER CNFL Basophils <0.04 0.01 - 0.08 x10(9)/L 07/04/2024 8:05 PM CHIEF INNOVATION OFFICER CNFL Blood (Blood, Venous) 07/04/2024 7:55 PM CHIEF INNOVATION OFFICER 07/04/2024 8:00 PM CHIEF INNOVATION OFFICER us Eliceo Garcia P.A.-C. LAB BLOOD ADD-ON Final R esult [facility] [address] [place] [address], [facility] CNFL [facility] in [address] [address] * (ABNORMAL) Comprehensive Metabolic Panel (07/04/2024 7:55 PM CHIEF INNOVATION OFFICER) Potassium, P 4.9 3.6 - 5.2 mmol/L 07/04/2024 8:18 PM CHIEF INNOVATION OFFICER CNFL Sodium, P 140 135 - 145 mmol/L 07/04/2024 8:18 PM CHIEF INNOVATION OFFICER CNFL Chloride, P 102 98 - 107 mmol/L 07/04/2024 8:18 PM CHIEF INNOVATION OFFICER CNFL Bicarbonate, P 32(H) 22 - 29 mmol/L 07/04/2024 8:19 PM CHIEF INNOVATION OFFICER CNFL Anion Gap, P 6(L) 7 - 15 07/04/2024 8:18 PM CHIEF INNOVATION OFFICER CNFL BUN (Blood Urea Nitrogen), P 19 8 - 24 mg/dL 07/04/2024 8:19 PM CHIEF INNOVATION OFFICER CNFL Creatinine 0.97 0.74 - 1.35 mg/dL 07/04/2024 8:19 PM CHIEF INNOVATION OFFICER CNFL Estimated GFR (eGFR) 77 >=60 mL/min/BS A 07/04/2024 8:19 PM CHIEF INNOVATION OFFICER CNFL Comment: Estimated GFR calculated using the 2020 CKD_EPI creatinine equation. Calcium, Total, P 9.1 8.8 - 10.2 mg/dL 07/04/2024 8:19 PM CHIEF INNOVATION OFFICER CNFL Glucose, P 108 70 - 140 mg/dL 07/04/2024 8:19 PM CHIEF INNOVATION OFFICER CNFL Protein, Total, P 6.1(L) 6.3 - 7.9 g/dL 07/04/2024 8:19 PM CHIEF INNOVATION OFFICER CNFL Albumin, P 3.8 3.5 - 5.0 g/dL 07/04/2024 8:19 PM CHIEF INNOVATION OFFICER CNFL Aspartate Aminotransferase (AST), P 35 8 - 48 U/L 07/04/2024 8:19 PM CHIEF INNOVATION OFFICER CNFL Alkaline Phosphatase, P 82 40 - 129 U/L 07/04/2024 8:19 PM CHIEF INNOVATION OFFICER CNFL Alanine Aminotransferase (ALT), P 18 7 - 55 U/L 07/04/2024 8:19 PM CHIEF INNOVATION OFFICER CNFL Bilirubin, Total, P 0.4 0.0 - 1.2 mg/dL 07/04/2024 8:19 PM CHIEF INNOVATION OFFICER CNFL Blood (Blood, Venous) 07/04/2024 7:55 PM CHIEF INNOVATION OFFICER 07/04/2024 8:00 PM CHIEF INNOVATION OFFICER Eliceo Garcia P.A.-C. LAB BLOOD ADD-ON Final R esult Performing Organization Address City/[facility]/ZIP Co de Phone Number [facility] [address] [place] [address], [facility] CNFL [facility] [place] [address] * ECG 12 Lead (07/04/2024 7:37 PM CHIEF INNOVATION OFFICER) Ventricular Rate ECG/Min 73 BPM MUSE PA Interval 162 ms MUSE QRSD Interval 94 ms MUSE QT Interval 376 ms MUSE QTC Interval 414 ms MUSE P [place] 77 degrees MUSE R [place] 58 degrees MUSE T Wave [place] 71 degrees MUSE 07/04/2024 7:37 PM CHIEF INNOVATION OFFICER 07/04/2024 7:51 PM CHIEF INNOVATION OFFICER Impressions MUSE - 07/04/2024 7:41 PM CHIEF INNOVATION OFFICER Normal sinus rhythm When compared with ECG of 08-Nov-2017 18:23, Premature ventricular complexes are no longer present QT has shortened Narrative Procedure Note Ethan Clay M.D. - 07/04/2024 IMPRESSION: Normal sinus rhythm When compared with ECG of 08-Nov-2017 18:23, Premature ventricular complexes are no longer present QT has shortened us Eliceo Garcia P.A.-C. ECG ORDERABLES Edited R esult - Final MUSE NA * CT HEAD/BRAIN WO CON-Outside CT Neuro (06/16/2024 10:00 PM CHIEF INNOVATION OFFICER) Only the most recent of3 resultswithin the time period is included. 06/16/2024 10:0 0 PM CHIEF INNOVATION OFFICER Narrative IIMS - 06/16/2024 11:48 PM CHIEF INNOVATION OFFICER This order has been created and auto-finalized to support the import of outside images. If available, original interpretation can be found on the Media Tab in Chart Review, in Document Viewer, as an image in QREADS or as an Addendum. If a re-interpretation or overread is required please follow defined workflow. us Provider Not In System IMG CT PROCEDURES Final R esult IIMS NA from Last 3 Months Insurance MEDICARE [facility] Care Teams Tight Rope Walker Relationship Specialty Start Date End Date Diane Riggs M.D. [id number] [phone] PCP - General 11/10/23
--- OUTSIDE RECORDS SUMMARY | 2024-07-04 22:59 | XMS_ITS | Encounter Summary ---
Author Organization [facility] Address [address] [place] [address] Care Team Providers Care Home Health Clinical Liaison Name Role Phone Diane Riggs M.D. Primary Care Provider +1- [phone] Encounter Details Date Type Department Care Team (Late st Contact Info) Description 06/16/2024 Documentation Department of Neurologic Surgery in [place], [place] [address] [place] [phone] Brea Grissom M.D. 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 [address] [place] [phone] PCP - General 11/10/23 documented as of this encounter
--- NOTE | 2024-07-04 23:00 | CRLHL7_ITS ---
For Patients: As a result of the Cures Act, medical imaging exams and procedure reports are released immediately into your electronic medical record. You may view this report before your referring provider. If you have questions, please contact your health care provider. INDICATION: Altered mental status. TECHNIQUE: Chest 1 views. COMPARISON: December 06, 2012. FINDINGS: Cardiovascular and mediastinum: Heart size and vasculature are normal in caliber and appearance. Lungs and pleural spaces: Lungs are clear. No sign of infiltrate or mass. No sign of pleural effusion. No pneumothorax. Bones and soft tissues: No significant findings. IMPRESSION: No acute or significant findings. No change. Dictated by Derrick Epperson MD @ 07/04/2024 11:54:03 PM (Electronically Signed)
[2024-07-04 23:01] VITALS: BP 99/54; PULSE 78; RESP 32; TEMP 35.7; O2SAT 70
[2024-07-04] MEDS: 0.9 % SODIUM CHLORIDE 500 ML 500 ML IV (23:20)
[2024-07-04 23:24] LABS: Basophils Percent Auto 0.9 % (0.0-3.0); Hematocrit 40.2 % (37.0-53.0); Immature Granulocytes Pct Auto 0.9 %; Lymphocytes Percent Auto 15.3 % (20-44); Mean Corpuscular HGB Conc 32 gm/dL (32-36); Mean Corpuscular Hemoglobin 30 pg (26-34); Mean Corpuscular Volume 92 fL (80-100); Neutrophils Percent Auto 82.9 % (42.0-72.0); Platelet Count* 193 K/uL (140-440); RDW Coefficient of Variation % 12.2 % (11.5-15.5); Red Blood Count 4.36 m/uL (4.30-5.90)
[2024-07-04 23:35] VITALS: RESP 42
[2024-07-04 23:39] VITALS: PULSE 45; O2SAT 67
[2024-07-04 23:40] LABS: Slide Review Reflex No; White Blood Count* 1.11 K/uL (4.50-11.00)
--- NOTE | 2024-07-04 23:41 | ED_ITS ---
HPI - General Adult General Chief complaint: Altered Mental Status <Esme Harman MD - Last Filed: 07/05/24 21:19> Stated complaint: stroke like symptoms <Esme Harman MD - Last Filed: 07/05/24 21:19> Time Seen by Provider: 07/04/24 23:28 <Esme Harman MD - Last Filed: 07/05/24 21:19> Source: patient, family and EMS <Esme Harman MD - Last Filed: 07/05/24 21:19> Mode of arrival: EMS <Esme Harman MD - Last Filed: 07/05/24 21:19> History of Present Illness HPI narrative: 84-year-old male who typically receives care through [facility] presents to the emergency department with altered mental status and weakness. Family reports that he was evaluated at [facility] this evening, retu rning home about an hour prior to becoming more weak. Does not complain of pain. We have very limited records, no vital signs, no labs. It looks as though he was diagnosed with urinary tract infection and started on cefdinir. Family states that there has been COVID exposure. No fever. Review of the record shows that he was admitted with bilateral acute and chronic subdural hematomas to our facility and monitored for couple of days. There was no interval change in he was discharged home. He has a notable prior history of prostate cancer 10 or 12 years ago. Son reports that he lives next door to patient. Son reports that he patient was sitting in his chair and called out for help in seemed to be confused. This lasted for a few minutes. Very vague and nondescript. There was no focal weakness of the limbs. 911 was called. Son is not able to give me much min update on the patient's status over the last couple weeks since hospital discharge. Patient denies any pain, chest pain, shortness of breath. He is nauseated and has had 2 bouts of diarrhea. No vomiting reported. Had hematuria reported today in [place]. Past medical history is notable for cognitive impairment, remote prostate cancer. He is not on long-term medications. Hospital admission from May reviewed, helpful. ROS is completely unreliable. <Esme Harman MD - Last Filed: 07/05/24 21:19> Related Data Home medications: Home Medications ?Medication ?Instructions ?Recorded ?Confirmed cefdinir 300 mg capsule 300 mg PO BID 07/05/24 07/05/24 <Esme Harman MD - Last Filed: 07/05/24 21:19> Allergies/adverse reactions: Allergies Allergy/AdvReac Type Severity Reaction Status Date / Time No Known Drug Allergies Allergy Verified 07/05/24 01:07 <Esme Harman MD - Last Filed: 07/05/24 21:19> [facility] Medical History: Medical History Driving safety issue ?Z91.89 - Other specified personal risk factors, not elsewhere classified (ICD-10) 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 (ICD-10) Cognitive impairment ?R41.89 - Other symptoms and signs involving cognitive functions and awareness (ICD-10) Bilateral subdural hematomas ?S06.5XAA - Traumatic subdural hemorrhage with loss of consciousness status unknown, initial encounter (ICD-10) Vitamin D deficiency ?E55.9 - Vitamin D deficiency, unspecified (ICD-10) Prostate cancer ?C61 - Malignant neoplasm of prostate (ICD-10) <Esme Harman MD - Last Filed: 07/05/24 21:19> Surgical History: Surgical History H/O colonoscopy ?Z98.890 - Other specified postprocedural states (ICD-10) Hx of prostate biopsy ?Z98.890 - Other specified postprocedural states (ICD-10) <Esme Harman MD - Last Filed: 07/05/24 21:19> Social History: Social History Narrative: 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 Lives independently with Precious. Nonsmoker, no ETOH. Unsure about code status, definitely does not desire shelter intubation. What is your current living situation?: I presently have a place to live Problems where you live: no known problems Problems where you live details: n/a In the past 12 months, utilities in danger of being shut off: no In past 12 months, lack of transportation kept you from medical appts, meetings, work, or getting things needed for daily living: no In the past 12 mos, have been you worried that your food would run out before you had money to buy more?: never true In the past 12 mos, the food you bought just didn't last and you didn't have money to buy more?: never true Smoking Status: Never smoker How often do you have a drink containing alcohol: never AUDIT-C Alcohol total score: 0 Non-prescribed substance use: denies use How often does anyone, including family, friends and others, physically hurt you : never How often does anyone, including family, friends and others, insult or talk down to you: never How often does anyone, including family, friends and others, threaten you with harm: never How often does anyone, including family, friends and others, scream or curse at you: never service: No <Esme Harman MD - Last Filed: 07/05/24 21:19> Exam Const: Vital Signs, click to edit/add: Vital Signs - 24 hr 07/04/24 23:01 07/04/24 23:35 07/04/24 23:39 Temperature 96.3 F L Pulse Rate 45 L Pulse Rate [Pulse Oximeter] 78 Respiratory Rate 32 H 42 H Blood Pressure Blood Pressure [Le ft Upper Arm] 99/54 L Pulse Oximetry 70 L 67 L Oxygen Delivery Me thod Non Rebreather Mas k Non Rebreather Mas k Oxygen Flow Rate 15 Fraction of Inspir ed Oxygen 07/04/24 23:45 07/04/24 23:51 07/05/24 00:00 Temperature Pulse Rate 46 L 157 H Pulse Rate [Pulse Oximeter] Respiratory Rate Blood Pressure 159/114 H Blood Pressure [Le ft Upper Arm] Pulse Oximetry 66 L 87 L Oxygen Delivery Me thod Non Rebreather Mas k Non Rebreather Mas k Non Rebreather Mas k Oxygen Flow Rate 15 15 15 Fraction of Inspir ed Oxygen 07/05/24 00:06 07/05/24 00:15 07/05/24 00:18 Temperature Pulse Rate 73 68 67 Pulse Rate [Pulse Oximeter] Respiratory Rate Blood Pressure 143/118 H Blood Pressure [Le ft Upper Arm] Pulse Oximetry 87 L 83 L 81 L Oxygen Delivery Me thod Non Rebreather Mas k Non Rebreather Mas k Non Rebreather Mas k Oxygen Flow Rate 15 15 15 Fraction of Inspir ed Oxygen 07/05/24 00:30 07/05/24 00:45 07/05/24 01:06 Temperature Pulse Rate 66 65 Pulse Rate [Pulse Oximeter] Respiratory Rate Blood Pressure Blood Pressure [Le ft Upper Arm] Pulse Oximetry 96 91 Oxygen Delivery Me thod High Flow Nasal Ca nnula High Flow Nasal Ca nnula High Flow Nasal Ca nnula Oxygen Flow Rate 30 30 30 Fraction of Inspir ed Oxygen 40 40 40 07/05/24 01:10 07/05/24 01:18 07/05/24 01:30 Temperature Pulse Rate 67 69 63 Pulse Rate [Pulse Oximeter] Respiratory Rate Blood Pressure 113/87 101/64 Blood Pressure [Le ft Upper Arm] Pulse Oximetry 95 91 96 Oxygen Delivery Me thod High Flow Nasal Ca nnula High Flow Nasal Ca nnula Oxygen Flow Rate 30 30 Fraction of Inspir ed Oxygen 45 45 07/05/24 01:32 07/05/24 01:36 07/05/24 01:53 Temperature Pulse Rate 56 L 59 L 58 L Pulse Rate [Pulse Oximeter] Respiratory Rate 20 Blood Pressure 123/104 H 120/81 120/101 H Blood Pressure [Le ft Upper Arm] Pulse Oximetry 95 95 96 Oxygen Delivery Me thod High Flow Nasal Ca nnula High Flow Nasal Ca nnula High Flow Nasal Ca nnula Oxygen Flow Rate 30 30 30 Fraction of Inspir ed Oxygen 45 45 45 07/05/24 02:00 07/05/24 02:15 07/05/24 02:18 Temperature 101.8 F H Pulse Rate 58 L 57 L 57 L Pulse Rate [Pulse Oximeter] Respiratory Rate Blood Pressure 140/117 H Blood Pressure [Le ft Upper Arm] Pulse Oximetry 96 96 96 Oxygen Delivery Me thod High Flow Nasal Ca nnula Oxygen Flow Rate 30 Fraction of Inspir ed Oxygen 45 07/05/24 03:00 07/05/24 03:08 07/05/24 03:12 Temperature 101.8 F H Pulse Rate 52 L 51 L Pulse Rate [Pulse Oximeter] Respiratory Rate Blood Pressure 117/100 H Blood Pressure [Le ft Upper Arm] Pulse Oximetry 82 L 78 L Oxygen Delivery Me thod High Flow Nasal Ca nnula High Flow Nasal Ca nnula Oxygen Flow Rate 40 40 Fraction of Inspir ed Oxygen 100 100 07/05/24 03:15 07/05/24 03:17 07/05/24 03:22 Temperature Pulse Rate 51 L 50 L 49 L Pulse Rate [Pulse Oximeter] Respiratory Rate Blood Pressure 75/40 L 89/40 L Blood Pressure [Le ft Upper Arm] Pulse Oximetry 75 L 76 L 71 L Oxygen Delivery Me thod High Flow Nasal Ca nnula High Flow Nasal Ca nnula High Flow Nasal Ca nnula Oxygen Flow Rate 40 40 40 Fraction of Inspir ed Oxygen 100 100 100 07/05/24 03:23 07/05/24 03:30 07/05/24 03:31 Temperature Pulse Rate 50 L 51 L 50 L Pulse Rate [Pulse Oximeter] Respiratory Rate Blood Pressure 75/40 L Blood Pressure [Le ft Upper Arm] Pulse Oximetry 71 L 86 L 84 L Oxygen Delivery Me thod High Flow Nasal Ca nnula High Flow Nasal Ca nnula Oxygen Flow Rate 40 40 Fraction of Inspir ed Oxygen 100 100 07/05/24 03:45 07/05/24 03:47 07/05/24 04:00 Temperature Pulse Rate 49 L 49 L 49 L Pulse Rate [Pulse Oximeter] Respiratory Rate Blood Pressure 61/38 L Blood Pressure [Le ft Upper Arm] Pulse Oximetry 86 L 88 97 Oxygen Delivery Me thod High Flow Nasal Ca nnula Oxygen Flow Rate 40 40 40 Fraction of Inspir ed Oxygen 100 100 100 07/05/24 04:01 07/05/24 04:02 07/05/24 04:15 Temperature Pulse Rate 50 L 48 L Pulse Rate [Pulse Oximeter] Respiratory Rate Blood Pressure 75/42 L Blood Pressure [Le ft Upper Arm] Pulse Oximetry 97 87 L Oxygen Delivery Me thod Oxygen Flow Rate 40 40 Fraction of Inspir ed Oxygen 100 100 100 07/05/24 04:17 07/05/24 04:18 07/05/24 04:30 Temperature Pulse Rate 48 L 49 L Pulse Rate [Pulse Oximeter] Respiratory Rate Blood Pressure 79/33 L Blood Pressure [Le ft Upper Arm] Pulse Oximetry 87 L 96 Oxygen Delivery Me thod High Flow Nasal Ca nnula High Flow Nasal Ca nnula Oxygen Flow Rate 40 40 Fraction of Inspir ed Oxygen 100 100 100 07/05/24 04:32 07/05/24 04:45 07/05/24 04:47 Temperature Pulse Rate 49 L 60 59 L Pulse Rate [Pulse Oximeter] Respiratory Rate Blood Pressure 113/72 97/77 Blood Pressure [Le ft Upper Arm] Pulse Oximetry 98 97 99 Oxygen Delivery Me thod High Flow Nasal Ca nnula High Flow Nasal Ca nnula High Flow Nasal Ca nnula Oxygen Flow Rate 40 40 40 Fraction of Inspir ed Oxygen 100 100 100 07/05/24 04:48 07/05/24 04:56 07/05/24 05:00 Temperature 98.2 F Pulse Rate 59 L 59 L Pulse Rate [Pulse Oximeter] Respiratory Rate Blood Pressure Blood Pressure [Le ft Upper Arm] Pulse Oximetry 98 96 Oxygen Delivery Me thod High Flow Nasal Ca nnula High Flow Nasal Ca nnula Oxygen Flow Rate 40 40 Fraction of Inspir ed Oxygen 100 100 07/05/24 05:02 07/05/24 05:15 07/05/24 05:16 Temperature Pulse Rate 59 L 59 L 59 L Pulse Rate [Pulse Oximeter] Respiratory Rate Blood Pressure 76/37 L 70/36 L Blood Pressure [Le ft Upper Arm] Pulse Oximetry 97 97 96 Oxygen Delivery Me thod High Flow Nasal Ca nnula High Flow Nasal Ca nnula High Flow Nasal Ca nnula Oxygen Flow Rate 40 40 40 Fraction of Inspir ed Oxygen 100 100 100 07/05/24 05:30 07/05/24 05:32 07/05/24 05:45 Temperature Pulse Rate 59 L 59 L 59 L Pulse Rate [Pulse Oximeter] Respiratory Rate Blood Pressure 69/36 L Blood Pressure [Le ft Upper Arm] Pulse Oximetry 96 95 97 Oxygen Delivery Me thod High Flow Nasal Ca nnula High Flow Nasal Ca nnula High Flow Nasal Ca nnula Oxygen Flow Rate 40 40 40 Fraction of Inspir ed Oxygen 100 100 100 07/05/24 05:47 07/05/24 06:00 07/05/24 06:02 Temperature Pulse Rate 59 L 59 L 59 L Pulse Rate [Pulse Oximeter] Respiratory Rate Blood Pressure 77/38 L 84/41 L Blood Pressure [Le ft Upper Arm] Pulse Oximetry 97 96 96 Oxygen Delivery Me thod Oxygen Flow Rate Fraction of Inspir ed Oxygen 07/05/24 06:10 07/05/24 06:16 07/05/24 06:31 Temperature Pulse Rate 59 L 58 L Pulse Rate [Pulse Oximeter] Respiratory Rate Blood Pressure 76/38 L 70/39 L Blood Pressure [Le ft Upper Arm] Pulse Oximetry 97 98 Oxygen Delivery Me thod High Flow Nasal Ca nnula High Flow Nasal Ca nnula Oxygen Flow Rate 40 40 Fraction of Inspir ed Oxygen 100 100 100 07/05/24 06:47 07/05/24 12:18 Temperature Pulse Rate 58 L Pulse Rate [Pulse Oximeter] Respiratory Rate Blood Pressure 72/37 L Blood Pressure [Le ft Upper Arm] Pulse Oximetry 97 Oxygen Delivery Me thod High Flow Nasal Ca nnula Oxygen Flow Rate 40 40 Fraction of Inspir ed Oxygen 100 100 <Esme Harman MD - Last Filed: 07/05/24 21:19> Vital Signs, click to edit/add: Vital Signs - 24 hr 07/04/24 23:01 07/04/24 23:35 07/04/24 23:39 Temperature 96.3 F L Pulse Rate 45 L Pulse Rate [Pulse Oximeter] 78 Respiratory Rate 32 H 42 H Blood Pressure Blood Pressure [Le ft Upper Arm] 99/54 L Pulse Oximetry 70 L 67 L Oxygen Delivery Me thod Non Rebreather Mas k Non Rebreather Mas k Oxygen Flow Rate 15 Fraction of Inspir ed Oxygen 07/04/24 23:45 07/04/24 23:51 07/05/24 00:00 Temperature Pulse Rate 46 L 157 H Pulse Rate [Pulse Oximeter] Respiratory Rate Blood Pressure 159/114 H Blood Pressure [Le ft Upper Arm] Pulse Oximetry 66 L 87 L Oxygen Delivery Me thod Non Rebreather Mas k Non Rebreather Mas k Non Rebreather Mas k Oxygen Flow Rate 15 15 15 Fraction of Inspir ed Oxygen 07/05/24 00:06 07/05/24 00:15 07/05/24 00:18 Temperature Pulse Rate 73 68 67 Pulse Rate [Pulse Oximeter] Respiratory Rate Blood Pressure 143/118 H Blood Pressure [Le ft Upper Arm] Pulse Oximetry 87 L 83 L 81 L Oxygen Delivery Me thod Non Rebreather Mas k Non Rebreather Mas k Non Rebreather Mas k Oxygen Flow Rate 15 15 15 Fraction of Inspir ed Oxygen 07/05/24 00:30 07/05/24 00:45 07/05/24 01:06 Temperature Pulse Rate 66 65 Pulse Rate [Pulse Oximeter] Respiratory Rate Blood Pressure Blood Pressure [Le ft Upper Arm] Pulse Oximetry 96 91 Oxygen Delivery Me thod High Flow Nasal Ca nnula High Flow Nasal Ca nnula High Flow Nasal Ca nnula Oxygen Flow Rate 30 30 30 Fraction of Inspir ed Oxygen 40 40 40 07/05/24 01:10 07/05/24 01:18 07/05/24 01:30 Temperature Pulse Rate 67 69 63 Pulse Rate [Pulse Oximeter] Respiratory Rate Blood Pressure 113/87 101/64 Blood Pressure [Le ft Upper Arm] Pulse Oximetry 95 91 96 Oxygen Delivery Me thod High Flow Nasal Ca nnula High Flow Nasal Ca nnula Oxygen Flow Rate 30 30 Fraction of Inspir ed Oxygen 45 45 07/05/24 01:32 07/05/24 01:36 07/05/24 01:53 Temperature Pulse Rate 56 L 59 L 58 L Pulse Rate [Pulse Oximeter] Respiratory Rate 20 Blood Pressure 123/104 H 120/81 120/101 H Blood Pressure [Le ft Upper Arm] Pulse Oximetry 95 95 96 Oxygen Delivery Me thod High Flow Nasal Ca nnula High Flow Nasal Ca nnula High Flow Nasal Ca nnula Oxygen Flow Rate 30 30 30 Fraction of Inspir ed Oxygen 45 45 45 07/05/24 02:00 07/05/24 02:15 07/05/24 02:18 Temperature 101.8 F H Pulse Rate 58 L 57 L 57 L Pulse Rate [Pulse Oximeter] Respiratory Rate Blood Pressure 140/117 H Blood Pressure [Le ft Upper Arm] Pulse Oximetry 96 96 96 Oxygen Delivery Me thod High Flow Nasal Ca nnula Oxygen Flow Rate 30 Fraction of Inspir ed Oxygen 45 07/05/24 03:00 07/05/24 03:08 07/05/24 03:12 Temperature 101.8 F H Pulse Rate 52 L 51 L Pulse Rate [Pulse Oximeter] Respiratory Rate Blood Pressure 117/100 H Blood Pressure [Le ft Upper Arm] Pulse Oximetry 82 L 78 L Oxygen Delivery Me thod High Flow Nasal Ca nnula High Flow Nasal Ca nnula Oxygen Flow Rate 40 40 Fraction of Inspir ed Oxygen 100 100 07/05/24 03:15 07/05/24 03:17 07/05/24 03:22 Temperature Pulse Rate 51 L 50 L 49 L Pulse Rate [Pulse Oximeter] Respiratory Rate Blood Pressure 75/40 L 89/40 L Blood Pressure [Le ft Upper Arm] Pulse Oximetry 75 L 76 L 71 L Oxygen Delivery Me thod High Flow Nasal Ca nnula High Flow Nasal Ca nnula High Flow Nasal Ca nnula Oxygen Flow Rate 40 40 40 Fraction of Inspir ed Oxygen 100 100 100 07/05/24 03:23 07/05/24 03:30 07/05/24 03:31 Temperature Pulse Rate 50 L 51 L 50 L Pulse Rate [Pulse Oximeter] Respiratory Rate Blood Pressure 75/40 L Blood Pressure [Le ft Upper Arm] Pulse Oximetry 71 L 86 L 84 L Oxygen Delivery Me thod High Flow Nasal Ca nnula High Flow Nasal Ca nnula Oxygen Flow Rate 40 40 Fraction of Inspir ed Oxygen 100 100 07/05/24 03:45 07/05/24 03:47 07/05/24 04:00 Temperature Pulse Rate 49 L 49 L 49 L Pulse Rate [Pulse Oximeter] Respiratory Rate Blood Pressure 61/38 L Blood Pressure [Le ft Upper Arm] Pulse Oximetry 86 L 88 97 Oxygen Delivery Me thod High Flow Nasal Ca nnula Oxygen Flow Rate 40 40 40 Fraction of Inspir ed Oxygen 100 100 100 07/05/24 04:01 07/05/24 04:02 07/05/24 04:15 Temperature Pulse Rate 50 L 48 L Pulse Rate [Pulse Oximeter] Respiratory Rate Blood Pressure 75/42 L Blood Pressure [Le ft Upper Arm] Pulse Oximetry 97 87 L Oxygen Delivery Me thod Oxygen Flow Rate 40 40 Fraction of Inspir ed Oxygen 100 100 100 07/05/24 04:17 07/05/24 04:18 07/05/24 04:30 Temperature Pulse Rate 48 L 49 L Pulse Rate [Pulse Oximeter] Respiratory Rate Blood Pressure 79/33 L Blood Pressure [Le ft Upper Arm] Pulse Oximetry 87 L 96 Oxygen Delivery Me thod High Flow Nasal Ca nnula High Flow Nasal Ca nnula Oxygen Flow Rate 40 40 Fraction of Inspir ed Oxygen 100 100 100 07/05/24 04:32 07/05/24 04:45 07/05/24 04:47 Temperature Pulse Rate 49 L 60 59 L Pulse Rate [Pulse Oximeter] Respiratory Rate Blood Pressure 113/72 97/77 Blood Pressure [Le ft Upper Arm] Pulse Oximetry 98 97 99 Oxygen Delivery Me thod High Flow Nasal Ca nnula High Flow Nasal Ca nnula High Flow Nasal Ca nnula Oxygen Flow Rate 40 40 40 Fraction of Inspir ed Oxygen 100 100 100 07/05/24 04:48 07/05/24 04:56 07/05/24 05:00 Temperature 98.2 F Pulse Rate 59 L 59 L Pulse Rate [Pulse Oximeter] Respiratory Rate Blood Pressure Blood Pressure [Le ft Upper Arm] Pulse Oximetry 98 96 Oxygen Delivery Me thod High Flow Nasal Ca nnula High Flow Nasal Ca nnula Oxygen Flow Rate 40 40 Fraction of Inspir ed Oxygen 100 100 07/05/24 05:02 07/05/24 05:15 07/05/24 05:16 Temperature Pulse Rate 59 L 59 L 59 L Pulse Rate [Pulse Oximeter] Respiratory Rate Blood Pressure 76/37 L 70/36 L Blood Pressure [Le ft Upper Arm] Pulse Oximetry 97 97 96 Oxygen Delivery Me thod High Flow Nasal Ca nnula High Flow Nasal Ca nnula High Flow Nasal Ca nnula Oxygen Flow Rate 40 40 40 Fraction of Inspir ed Oxygen 100 100 100 07/05/24 05:30 07/05/24 05:32 07/05/24 05:45 Temperature Pulse Rate 59 L 59 L 59 L Pulse Rate [Pulse Oximeter] Respiratory Rate Blood Pressure 69/36 L Blood Pressure [Le ft Upper Arm] Pulse Oximetry 96 95 97 Oxygen Delivery Me thod High Flow Nasal Ca nnula High Flow Nasal Ca nnula High Flow Nasal Ca nnula Oxygen Flow Rate 40 40 40 Fraction of Inspir ed Oxygen 100 100 100 07/05/24 05:47 07/05/24 06:00 07/05/24 06:02 Temperature Pulse Rate 59 L 59 L 59 L Pulse Rate [Pulse Oximeter] Respiratory Rate Blood Pressure 77/38 L 84/41 L Blood Pressure [Le ft Upper Arm] Pulse Oximetry 97 96 96 Oxygen Delivery Me thod Oxygen Flow Rate Fraction of Inspir ed Oxygen 07/05/24 06:10 07/05/24 06:16 07/05/24 06:31 Temperature Pulse Rate 59 L 58 L Pulse Rate [Pulse Oximeter] Respiratory Rate Blood Pressure 76/38 L 70/39 L Blood Pressure [Le ft Upper Arm] Pulse Oximetry 97 98 Oxygen Delivery Me thod High Flow Nasal Ca nnula High Flow Nasal Ca nnula Oxygen Flow Rate 40 40 Fraction of Inspir ed Oxygen 100 100 100 07/05/24 06:47 07/05/24 12:18 Temperature Pulse Rate 58 L Pulse Rate [Pulse Oximeter] Respiratory Rate Blood Pressure 72/37 L Blood Pressure [Le ft Upper Arm] Pulse Oximetry 97 Oxygen Delivery Me thod High Flow Nasal Ca nnula Oxygen Flow Rate 40 40 Fraction of Inspir ed Oxygen 100 100 <Kash Youssef MD - Last Filed: 07/05/24 07:36> Other: Answer few questions, gets confused easily. Appears pale, sallow. No obvious bruising or lacerations. <Esme Harman MD - Last Filed: 07/05/24 21:19> HENMT: Common normals: normocephalic and head/scalp atraumatic <Esme Harman MD - Last Filed: 07/05/24 21:19> Head and scalp: normocephalic and atraumatic <Esme Harman MD - Last Filed: 07/05/24 21:19> Other: Membranes dry. <Esme Harman MD - Last Filed: 07/05/24 21:19> Eye: Common normals: PERRL, EOMs intact bilaterally and conjunctivae normal <Esme Harman MD - Last Filed: 07/05/24 21:19> General eye: normal appearance of both eyes <Esme Harman MD - Last Filed: 07/05/24 21:19> Conjunctiva: conjunctiva(e) normal <Esme Harman MD - Last Filed: 07/05/24 21:19> Pupil: PERRL <Esme Harman MD - Last Filed: 07/05/24 21:19> Neck & C-Spine: Common normals: full ROM <Esme Harman MD - Last Filed: 07/05/24 21:19> General: normal visual inspection <Esme Harman MD - Last Filed: 07/05/24 21:19> Chest: Common normals: inspection of chest normal and palpation of chest normal <Esme Harman MD - Last Filed: 07/05/24 21:19> Resp: Other: Tachypneic, does move some air, poor flow. Increased respiratory effort noted. No obvious crackle. <Esme Harman MD - Last Filed: 07/05/24 21:19> Cardio: Common normals: regular rate, regular rhythm and no murmurs <Esme Harman MD - Last Filed: 07/05/24 21:19> Rate: regular rate <Esme Harman MD - Last Filed: 07/05/24 21:19> Rhythm: regular rhythm <Esme Harman MD - Last Filed: 07/05/24 21:19> GI: Common normals: Normal to inspection, nondistended, normoactive bowel sounds present, soft to palpation, non-tender, no hepatosplenomegaly and no masses <Esme Harman MD - Last Filed: 07/05/24 21:19> Palpation: soft and no hepatosplenomegaly <Esme Harman MD - Last Filed: 07/05/24 21:19> : Other: Bleeding noted from urethral meatus. Not brisk. <Esme Harman MD - Last Filed: 07/05/24 21:19> Back & Pelvis: Common normals: thoracic and lumbar spine normal to inspection <Esme Harman MD - Last Filed: 07/05/24 21:19> Extremity: Other: Trace bilateral edema. Equal and symmetric. No mottling. <Esme Harman MD - Last Filed: 07/05/24 21:19> Neuro: Other: Can move extremities on command but very globally weak. No obvious focal deficit. <Esme Harman MD - Last Filed: 07/05/24 21:19> Psych: Other: Poor insight. No agitation on initial exam. <Esme Harman MD - Last Filed: 07/05/24 21:19> Skin: Common normals: no rashes or lesions noted <Esme Harman MD - Last Filed: 07/05/24 21:19> General skin exam: no rashes or lesions noted <Esme Harman MD - Last Filed: 07/05/24 21:19> Course Course ED Course: Critically ill 84-year-old male presents the emergency department by EMS with hypotension, hypoxia, poor peripheral perfusion and altered mental status suspicious for sepsis. Less likely neurological issue but history of recent h ead bleeds. Patient urgently taken to CT, then brought into stab room. Two peripheral IVs placed. Normal saline bolus started. Patient on 15 L non- rebreather, initial difficulty obtaining O2 sats, ultimately finding that these were still reading only in the mid to high 80s on 15 L non-rebreather. He has transition onto high-flow nasal cannula. Conversation with patient and son in room. I did question his code status and if you would want to be transferred. He tells me that he would want us to try here and ?keep things simple?. When I ask him if he would want CPR, intubation and other high level interventions, he initially evades the question but then shakes his head no at me and stating that ?we could just try here?. I take this to mean that he is leaning towards DNR but would clarify this more clearly with him if the need arises. He does not seem to have any previous advanced directives and the son confirms this. I could not find any documentation of code status from his last admission. Suspect urinary source and sepsis. Chest x-ray is initially reassuring for no infiltrate. Blood cultures are pending. Starting vancomycin and Zosyn. I elected to CT the abdomen and pelvis because of the hematuria the though I think this could just potentially be from a traumatic catheter or potentially just the urinary infection. He does have a history of prostate cancer. One my partners was able to pull up some [place] records showing me that he did have a normal PSA back in January. He does not take any anticoagulants. Initial blood pressures improved after initial fluid bolus, will give another L. based on his weight, sepsis bolus would be 1300 mL. Repeat lactate is pending. No signs of persistent septic shock as blood pressure improved with initial fluids. No tach ycardia or medications that would mask this. Pulmonary embolism considered but with recent head bleeds, not a candidate for heparin any way. Elected not to pursue this as initial diagnosis management. Update: Handing off to incoming shift manager partner. Additional cardiac workup ordered with repeat lactate. Patient starting 2 L of fluids. Blood pressures have stabilized on high flow. No tachycardia. <Esme Harman MD - Last Filed: 07/05/24 21:19> Reevaluation(s) Time of Reevaluation #1: 01:29 <Kash Youssef MD - Last Filed: 07/05/24 07:36> Reevaluation #1: Patient accepted in sign-out from prior provider. Briefly, patient was seen in outside facility earlier tonight with unknown complaint, that time was diagnosed with urinary tract infection discharge. Subsequently present to [facility] Emergency Department with increased weakness and confusion. Recent medical history of subdural hematoma, also past history of prostate cancer. On initial arrival here, patient was confused, hypotension, hypoxic placed on 15 L non-rebreather and subsequently transitioned to high-flow oxygen. He is confused but able to answer some questions. Will no focal neurologic deficits on exam the, blood at the meatus likely from catheter earlier today. Initial chest x-ray negative for acute intrathoracic findings. White blood cell count found to be 1.1, this is down from 7.8 at his earlier emergency department evaluation. Lactate of 7.8. Basic metabolic panel generally reassuring with creatinine 1.4, this was seen to be 0.97 at earlier visit. Hepatic panel normal, respiratory panel negative. Working diagnosis initially sepsis from urinary source with multiorgan failure including acute kidney injury, respiratory failure. Patient was started on Zosyn and vancomycin, given 1 L of IV fluids with improvement of blood pressure. CT scan of the abdomen and pelvis independently interpreted by me with no acute findings. Given profound hypoxia added proportion to findings on lung exam or x-ray, concern for possible pulmonary embolism, and this patient received IV contrast bolus already, D-dimer will be ordered although in setting of sepsis this likely will be positive. Additionally, monitor worker does appear to show some ST elevations and so EKG was ordered along with troponin and BNP. Patient is a critically ill, unfortunately no beds available for admission or transfer and so will continue to monitor and treat in the emergency department. EKG independently interpreted by me with sinus rhythm rate 68, no acute ST elevations or depressions, poor quality tracing due to patient shaking, QTC 468, QRS 138. Compared to prior of June 16, no acute change other than rate has decreased <Kash Youssef MD - Last Filed: 07/05/24 07:36> Time of Reevaluation #2: 01:41 <Kash Youssef MD - Last Filed: 07/05/24 07:36> Reevaluation #2: Repeat lactate 8.7, additional fluid bolus ordered, additional peripheral IV started. Blood pressure improved, no pressors at this point. Troponin 0.09 which is elevated but likely related to critical illness and not of occlusive coronary disease. <Kash Youssef MD - Last Filed: 07/05/24 07:36> Time of Reevaluation #3: 02:14 <Kash Youssef MD - Last Filed: 07/05/24 07:36> Reevaluation #3: Labs independently interpreted by me, D-dimer significantly elevated at 19.4 for, CT PE study is ordered although this may just be due to critical illness. Patient now has developed a fever to 101.8 consistent with presumptive diagnosis of severe sepsis, Tylenol IV is ordered as I do not think patient is alert enough to take oral Tylenol. I had a long conversation with patient's son and a little bit with the patient. We discussed patient's critical illness and increasing lactate setting of severe sepsis. We discussed plan of care moving forward. At this point, given patient's general frailty and severe illness, we did discuss that if patient did need to be intubated there is high likelihood that he would not survive admission. It sounds like conversation with Dr. Harman earlier patient wanted to be DNR, DNI. Patient is not alert enough to understand our end of life care discussion at this point. Will continue current cares for this critically ill patient. Blood pressure improved, heart rate is stable, no indication for pressors at this time. <Kash Youssef MD - Last Filed: 07/05/24 07:36> Additional Reevaluation(s): 2:[address] PE study independently interpreted by me negative for acute findings 3:09 a.m. monitor worker shows rhythm change, repeat EKG shows patient to be in a complete heart block. Given severe sepsis, patient at this point would not be a candidate for pacemaker. Patient is still on high-flow oxygen but oxygen saturations are in the 80s. Revisited goals of care with son with continued plan for comfort cares. Discussed with son the patient is in the process of actively dying, family is coming in now. 3:49 a.m. spent the last 30 minutes at bedside with family who has now arrived including patient's other son, daughter, and spouse. We discussed critical condition and multi-system organ failure with now complete heart block, worsen ing hypoxia in spite of maximal high-flow support, and worsening hypotension. We discussed treatment options including intubation and aggressive measures to support respiratory and cardiovascular status. Family does not want inpatient. We discussed step-down to possible use of pressors to maintain blood pressure. However, maintaining blood pressure in light of worsening respiratory status and heart block is unlikely to make significant impact in patient's long-term prognosis. Most recent blood pressure 61/49 has been gradually declining after initial improvement with fluid bolus. We discussed goals of care and family would like to continue with high-flow oxygen support which they view as a comfort measure, do not want to start pressors as they are at this point unlikely to provide significant morbidity or mortality benefit, and otherwise continue comfort measures. 7:34 a.m. patient remained critical overnight, blood pressures did improve slightly when patient was a little agitated but have consistently been in 70s over 50s, oxygen saturation remains around 88-90% on FiO2 100% on 40 L by high- flow. Patient did receive small dose of Ativan for some agitation earlier but otherwise has been comfortable. Still minimally responsive with family at bedside. Care discussed with Dr. Cleary for admission. <Kash Youssef MD - Last Filed: 07/05/24 07:36> Consultations Consultation #1: Dr. Harman- 07/05/24- I assumed care for patient at the start of my 4:00 p.m. shift. He is being transferred to medical unit with comfort cares plan for his severe sepsis. <Esme Harman MD - Last Filed: 07/05/24 21:19> Vital Signs Vital signs: Initial Vital Signs Temperature 96.3 F L 07/04/24 23:01 Temperature Source Temporal Artery Scan 07/04/24 23:01 Pulse Rate 78 07/04/24 23:01 Respiratory Rate 32 H 07/04/24 23:01 Blood Pressure 99/54 L 07/04/24 23:01 Blood Pressure Mean 69 L 07/04/24 23:01 Blood Pressure Position Supine 07/04/24 23:01 Pulse Oximetry 70 L 07/04/24 23:01 Oxygen Delivery Method Non Rebreather Mask 07/04/24 23:01 Vital Signs Temperature 96.3 F L 07/04/24 23:01 Pulse Rate 78 07/04/24 23:01 Respiratory Rate 32 H 07/04/24 23:01 Blood Pressure 99/54 L 07/04/24 23:01 Pulse Oximetry 70 L 07/04/24 23:01 Oxygen Delivery Method Non Rebreather Mask 07/04/24 23:01 Temperature 98.2 F 07/05/24 04:56 Pulse Rate 58 L 07/05/24 06:47 Respiratory Rate 20 07/05/24 01:53 Blood Pressure 72/37 L 07/05/24 06:47 Pulse Oximetry 97 07/05/24 06:47 Oxygen Delivery Method High Flow Nasal Cannula 07/05/24 06:47 Oxygen Flow Rate 40 07/05/24 12:18 Fraction of Inspired Oxygen 100 07/05/24 12:18 <Esme Harman MD - Last Filed: 07/05/24 21:19> Initial Vital Signs Temperature 96.3 F L 07/04/24 23:01 Temperature Source Temporal Artery Scan 07/04/24 23:01 Pulse Rate 78 07/04/24 23:01 Respiratory Rate 32 H 07/04/24 23:01 Blood Pressure 99/54 L 07/04/24 23:01 Blood Pressure Mean 69 L 07/04/24 23:01 Blood Pressure Position Supine 07/04/24 23:01 Pulse Oximetry 70 L 07/04/24 23:01 Oxygen Delivery Method Non Rebreather Mask 07/04/24 23:01 Vital Signs Temperature 96.3 F L 07/04/24 23:01 Pulse Rate 78 07/04/24 23:01 Respiratory Rate 32 H 07/04/24 23:01 Blood Pressure 99/54 L 07/04/24 23:01 Pulse Oximetry 70 L 07/04/24 23:01 Oxygen Delivery Method Non Rebreather Mask 07/04/24 23:01 Temperature 98.2 F 07/05/24 04:56 Pulse Rate 58 L 07/05/24 06:47 Respiratory Rate 20 07/05/24 01:53 Blood Pressure 72/37 L 07/05/24 06:47 Pulse Oximetry 97 07/05/24 06:47 Oxygen Delivery Method High Flow Nasal Cannula 07/05/24 06:47 Oxygen Flow Rate 40 07/05/24 12:18 Fraction of Inspired Oxygen 100 07/05/24 12:18 <Kash Youssef MD - Last Filed: 07/05/24 07:36> Medications Administered Medications: Generic Name Dose Route Start Last Admin Trade Name Freq PRN Reason Stop Dose Admin Morphine Sulfate 4 mg 07/05/24 18:49 07/05/24 19:45 Morphine 2 Mg/Ml Inj IVP 2 mg Q2H PRN Administration Discontinued Medications Generic Name Dose Route Start Last Admin Trade Name Freq PRN Reason Stop Dose Admin Sodium Chloride 500 mls @ 500 mls/hr 07/04/24 23:00 07/05/24 00:01 0.9 % Sodium Chloride 500 Ml IV 07/04/24 23:59 Infused .Q1H ONE Infusion Sodium Chloride 1,000 mls @ 500 mls/hr 07/04/24 23:50 07/05/24 02:18 0.9 % Sodium Chloride 1000 Ml IV 07/05/24 01:49 Infused .Q2H FAUSITNA Infusion Piperacillin Sod/Tazobactam 100 mls @ 200 mls/hr 07/05/24 00:25 07/05/24 01:28 Sod 3.375 gm/ Sodium Chloride IVPB 07/05/24 00:26 Infused ONCE ONE Infusion Sodium Chloride 1,000 mls @ 500 mls/hr 07/05/24 00:49 07/05/24 04:22 0.9 % Sodium Chloride 1000 Ml IV 07/05/24 02:48 Infused .Q2H FAUSTINA Infusion Vancomycin/PEG/NADA/Lysine/Water 1.25 gm in 250 mls @ 200 mls/hr 07/05/24 00:49 07/05/24 04:21 Vancomycin 1.25 Gm/250 Ml IVPB 07/05/24 02:03 Infused ONCE ONE Infusion Protocol Sodium Chloride 1,000 mls @ 1,000 mls/hr 07/05/24 01:45 07/05/24 04:22 0.9 % Sodium Chloride 1000 Ml IV 07/05/24 02:44 Not Given .Q1H FAUSTINA Acetaminophen 1,000 mg in 100 mls @ 400 mls/hr 07/05/24 02:13 07/05/24 03:25 Ofirmev IVPB 07/05/24 02:27 Infused ONCE ONE Infusion Sodium Chloride 1,000 mls @ 125 mls/hr 07/05/24 02:18 07/05/24 13:00 0.9 % Sodium Chloride 1000 Ml IV Not Given .Q8H FAUSTINA Lorazepam 0.3 mg 07/05/24 04:32 07/05/24 04:37 Lorazepam 2 Mg/Ml Inj IVP 07/05/24 04:33 0.3 mg ONCE ONE Administration Morphine Sulfate 2 mg 07/05/24 17:38 07/05/24 18:14 Morphine 2 Mg/Ml Inj IVP 2 mg Q2H PRN Administration <Esme Harman MD - Last Filed: 07/05/24 21:19> Generic Name Dose Route Start Last Admin Trade Name Freq PRN Reason Stop Dose Admin Morphine Sulfate 4 mg 07/05/24 18:49 07/05/24 19:45 Morphine 2 Mg/Ml Inj IVP 2 mg Q2H PRN Administration Discontinued Medications Generic Name Dose Route Start Last Admin Trade Name Freq PRN Reason Stop Dose Admin Sodium Chloride 500 mls @ 500 mls/hr 07/04/24 23:00 07/05/24 00:01 0.9 % Sodium Chloride 500 Ml IV 07/04/24 23:59 Infused .Q1H ONE Infusion Sodium Chloride 1,000 mls @ 500 mls/hr 07/04/24 23:50 07/05/24 02:18 0.9 % Sodium Chloride 1000 Ml IV 07/05/24 01:49 Infused .Q2H FAUSTINA Infusion Piperacillin Sod/Tazobactam 100 mls @ 200 mls/hr 07/05/24 00:25 07/05/24 01:28 Sod 3.375 gm/ Sodium Chloride IVPB 07/05/24 00:26 Infused ONCE ONE Infusion Sodium Chloride 1,000 mls @ 500 mls/hr 07/05/24 00:49 07/05/24 04:22 0.9 % Sodium Chloride 1000 Ml IV 07/05/24 02:48 Infused .Q2H FAUSTINA Infusion Vancomycin/PEG/NADA/Lysine/Water 1.25 gm in 250 mls @ 200 mls/hr 07/05/24 00:49 07/05/24 04:21 Vancomycin 1.25 Gm/250 Ml IVPB 07/05/24 02:03 Infused ONCE ONE Infusion Protocol Sodium Chloride 1,000 mls @ 1,000 mls/hr 07/05/24 01:45 07/05/24 04:22 0.9 % Sodium Chloride 1000 Ml IV 07/05/24 02:44 Not Given .Q1H FAUSTINA Acetaminophen 1,000 mg in 100 mls @ 400 mls/hr 07/05/24 02:13 07/05/24 03:25 Ofirmev IVPB 07/05/24 02:27 Infused ONCE ONE Infusion Sodium Chloride 1,000 mls @ 125 mls/hr 07/05/24 02:18 07/05/24 13:00 0.9 % Sodium Chloride 1000 Ml IV Not Given .Q8H FAUSTINA Lorazepam 0.3 mg 07/05/24 04:32 07/05/24 04:37 Lorazepam 2 Mg/Ml Inj IVP 07/05/24 04:33 0.3 mg ONCE ONE Administration Morphine Sulfate 2 mg 07/05/24 17:38 07/05/24 18:14 Morphine 2 Mg/Ml Inj IVP 2 mg Q2H PRN Administration <Kash Youssef MD - Last Filed: 07/05/24 07:36> Medical Decision Making Lab Data Labs: Lab Results 07/04/24 07/05/24 07/05/24 Range/Units 23:15 00:21 01:20 WBC 1.11 L* (4.50-11.00) K/uL RBC 4.36 (4.30-5.90) m/uL Hgb 13.0 L (13.5-17.5) gm/dL Hct 40.2 (37.0-53.0) % MCV 92 (80-100) fL MCH 30 (26-34) pg MCHC 32 (32-36) gm/dL RDW Coeff of Ophelia 12.2 (11.5-15.5) % Plt Count 193 (140-440) K/uL Neut % (Auto) 82.9 H (42.0-72.0) % Lymph % (Auto) 15.3 L (20-44) % [place] % (Auto) 0.0 (0.0-11.0) % Eos % (Auto) 0.0 (0.0-7.0) % Baso % (Auto) 0.9 (0.0-3.0) % Neut # (Auto) 0.90 L (1.7-7.0) K/uL Lymph # (Auto) 0.20 L (0.90-2.90) K/uL [place] # (Auto) 0.00 (0.00-0.90) K/UL Eos # (Auto) 0.00 (0.00-0.50) K/uL Baso # (Auto) 0.00 (0.00-0.30) K/uL Abs Immat Gran (auto) 0.00 (0.00-0.30) K/uL Imm/Tot Granulo (auto) 0.9 % D-Dimer Quant (PE/DVT) (0.00-0.50) ug/ml Sodium 139 (135-149) mmol/L Potassium 3.8 (3.6-5.1) mmol/L Chloride 103 (96-114) mmol/L Carbon Dioxide 23 (20-32) mmol/L Anion Gap 13 (7-15) mEq/L BUN 23 (7-30) mg/dL Creatinine 1.4 (0.5-1.5) mg/dL Estimated GFR 50 ml/min Glucose 141 H (60-115) mg/dL Lactate 7.6 H* (0.5-1.9) mmol/L Calcium 9.0 (8.4-10.6) mg/dL Magnesium (1.5-2.6) mg/dL Total Bilirubin 1.1 (0.1-1.5) mg/dL AST 38 H (12-35) U/L ALT 21 (4-50) U/L Alkaline Phosphatase 72 (40-150) U/L C-Reactive Protein 0.5 (0.5-1.0) mg/dL NT-Pro-B Natriuret Pep pg/mL Total Protein 6.2 (6.0-8.3) g/dL Albumin 4.0 (3.3-5.0) g/dL Urine Color Yellow (Yellow) Urine Appearance Cloudy A (Clear) Urine pH 7.0 (5.0-8.5) Ur Specific [place] 1.015 (1.000-1.030) Urine Protein 1+ A (Negative) Urine Glucose (UA) Negative (Negative) Urine Ketones Negative (Negative) Urine Blood 2+ A (Negative) Urine Nitrite Negative (Negative) Urine Bilirubin Negative (Negative) Urine Urobilinogen 0.2 (0.2-1.0) Ur Leukocyte Esterase 1+ A (Negative) Urine RBC 5-10 A (0-2) Urine WBC 5-10 A (0-5) Ur Squamous Epith Cells Few (None-Few) Urine Bacteria Many A (None) SARS-CoV-2 (PCR) Negative SARS-CoV-2 (Negative) Influenza Type A (PCR) Negative PCR FLU A (Negative) Influenza Type B (PCR) Negative PCR FLU B (Negative) RSV (PCR) Negative PCR RSV (Negative) Lab Acknowledgement Test Added POC Troponin I (0.01-0.04) ng/ml 07/05/24 07/05/24 Range/Units 01:25 03:25 WBC (4.50-11.00) K/uL RBC (4.30-5.90) m/uL Hgb (13.5-17.5) gm/dL Hct (37.0-53.0) % MCV (80-100) fL MCH (26-34) pg MCHC (32-36) gm/dL RDW Coeff of Ophelia (11.5-15.5) % Plt Count (140-440) K/uL Neut % (Auto) (42.0-72.0) % Lymph % (Auto) (20-44) % [place] % (Auto) (0.0-11.0) % Eos % (Auto) (0.0-7.0) % Baso % (Auto) (0.0-3.0) % Neut # (Auto) (1.7-7.0) K/uL Lymph # (Auto) (0.90-2.90) K/uL [place] # (Auto) (0.00-0.90) K/UL Eos # (Auto) (0.00-0.50) K/uL Baso # (Auto) (0.00-0.30) K/uL Abs Immat Gran (auto) (0.00-0.30) K/uL Imm/Tot Granulo (auto) % D-Dimer Quant (PE/DVT) 19.44 H (0.00-0.50) ug/ml Sodium 135 (135-149) mmol/L Potassium 3.9 (3.6-5.1) mmol/L Chloride 105 (96-114) mmol/L Carbon Dioxide 23 (20-32) mmol/L Anion Gap 7 (7-15) mEq/L BUN 26 (7-30) mg/dL Creatinine 1.5 (0.5-1.5) mg/dL Estimated GFR 46 ml/min Glucose 85 (60-115) mg/dL Lactate 8.7 H* 4.9 H* (0.5-1.9) mmol/L Calcium 7.6 L (8.4-10.6) mg/dL Magnesium 1.9 (1.5-2.6) mg/dL Total Bilirubin (0.1-1.5) mg/dL AST (12-35) U/L ALT (4-50) U/L Alkaline Phosphatase (40-150) U/L C-Reactive Protein (0.5-1.0) mg/dL NT-Pro-B Natriuret Pep 625 pg/mL Total Protein (6.0-8.3) g/dL Albumin (3.3-5.0) g/dL Urine Color (Yellow) Urine Appearance (Clear) Urine pH (5.0-8.5) Ur Specific [place] (1.000-1.030) Urine Protein (Negative) Urine Glucose (UA) (Negative) Urine Ketones (Negative) Urine Blood (Negative) Urine Nitrite (Negative) Urine Bilirubin (Negative) Urine Urobilinogen (0.2-1.0) Ur Leukocyte Esterase (Negative) Urine RBC (0-2) Urine WBC (0-5) Ur Squamous Epith Cells (None-Few) Urine Bacteria (None) SARS-CoV-2 (PCR) (Negative) Influenza Type A (PCR) (Negative) Influenza Type B (PCR) (Negative) RSV (PCR) (Negative) Lab Acknowledgement POC Troponin I 0.09 H (0.01-0.04) ng/ml <Esme Harman MD - Last Filed: 07/05/24 21:19> Lab Results 07/04/24 07/05/24 07/05/24 Range/Units 23:15 00:21 01:20 WBC 1.11 L* (4.50-11.00) K/uL RBC 4.36 (4.30-5.90) m/uL Hgb 13.0 L (13.5-17.5) gm/dL Hct 40.2 (37.0-53.0) % MCV 92 (80-100) fL MCH 30 (26-34) pg MCHC 32 (32-36) gm/dL RDW Coeff of Ophelia 12.2 (11.5-15.5) % Plt Count 193 (140-440) K/uL Neut % (Auto) 82.9 H (42.0-72.0) % Lymph % (Auto) 15.3 L (20-44) % [place] % (Auto) 0.0 (0.0-11.0) % Eos % (Auto) 0.0 (0.0-7.0) % Baso % (Auto) 0.9 (0.0-3.0) % Neut # (Auto) 0.90 L (1.7-7.0) K/uL Lymph # (Auto) 0.20 L (0.90-2.90) K/uL [place] # (Auto) 0.00 (0.00-0.90) K/UL Eos # (Auto) 0.00 (0.00-0.50) K/uL Baso # (Auto) 0.00 (0.00-0.30) K/uL Abs Immat Gran (auto) 0.00 (0.00-0.30) K/uL Imm/Tot Granulo (auto) 0.9 % D-Dimer Quant (PE/DVT) (0.00-0.50) ug/ml Sodium 139 (135-149) mmol/L Potassium 3.8 (3.6-5.1) mmol/L Chloride 103 (96-114) mmol/L Carbon Dioxide 23 (20-32) mmol/L Anion Gap 13 (7-15) mEq/L BUN 23 (7-30) mg/dL Creatinine 1.4 (0.5-1.5) mg/dL Estimated GFR 50 ml/min Glucose 141 H (60-115) mg/dL Lactate 7.6 H* (0.5-1.9) mmol/L Calcium 9.0 (8.4-10.6) mg/dL Magnesium (1.5-2.6) mg/dL Total Bilirubin 1.1 (0.1-1.5) mg/dL AST 38 H (12-35) U/L ALT 21 (4-50) U/L Alkaline Phosphatase 72 (40-150) U/L C-Reactive Protein 0.5 (0.5-1.0) mg/dL NT-Pro-B Natriuret Pep pg/mL Total Protein 6.2 (6.0-8.3) g/dL Albumin 4.0 (3.3-5.0) g/dL Urine Color Yellow (Yellow) Urine Appearance Cloudy A (Clear) Urine pH 7.0 (5.0-8.5) Ur Specific [place] 1.015 (1.000-1.030) Urine Protein 1+ A (Negative) Urine Glucose (UA) Negative (Negative) Urine Ketones Negative (Negative) Urine Blood 2+ A (Negative) Urine Nitrite Negative (Negative) Urine Bilirubin Negative (Negative) Urine Urobilinogen 0.2 (0.2-1.0) Ur Leukocyte Esterase 1+ A (Negative) Urine RBC 5-10 A (0-2) Urine WBC 5-10 A (0-5) Ur Squamous Epith Cells Few (None-Few) Urine Bacteria Many A (None) SARS-CoV-2 (PCR) Negative SARS-CoV-2 (Negative) Influenza Type A (PCR) Negative PCR FLU A (Negative) Influenza Type B (PCR) Negative PCR FLU B (Negative) RSV (PCR) Negative PCR RSV (Negative) Lab Acknowledgement Test Added POC Troponin I (0.01-0.04) ng/ml 07/05/24 07/05/24 Range/Units 01:25 03:25 WBC (4.50-11.00) K/uL RBC (4.30-5.90) m/uL Hgb (13.5-17.5) gm/dL Hct (37.0-53.0) % MCV (80-100) fL MCH (26-34) pg MCHC (32-36) gm/dL RDW Coeff of Ophelia (11.5-15.5) % Plt Count (140-440) K/uL Neut % (Auto) (42.0-72.0) % Lymph % (Auto) (20-44) % [place] % (Auto) (0.0-11.0) % Eos % (Auto) (0.0-7.0) % Baso % (Auto) (0.0-3.0) % Neut # (Auto) (1.7-7.0) K/uL Lymph # (Auto) (0.90-2.90) K/uL [place] # (Auto) (0.00-0.90) K/UL Eos # (Auto) (0.00-0.50) K/uL Baso # (Auto) (0.00-0.30) K/uL Abs Immat Gran (auto) (0.00-0.30) K/uL Imm/Tot Granulo (auto) % D-Dimer Quant (PE/DVT) 19.44 H (0.00-0.50) ug/ml Sodium 135 (135-149) mmol/L Potassium 3.9 (3.6-5.1) mmol/L Chloride 105 (96-114) mmol/L Carbon Dioxide 23 (20-32) mmol/L Anion Gap 7 (7-15) mEq/L BUN 26 (7-30) mg/dL Creatinine 1.5 (0.5-1.5) mg/dL Estimated GFR 46 ml/min Glucose 85 (60-115) mg/dL Lactate 8.7 H* 4.9 H* (0.5-1.9) mmol/L Calcium 7.6 L (8.4-10.6) mg/dL Magnesium 1.9 (1.5-2.6) mg/dL Total Bilirubin (0.1-1.5) mg/dL AST (12-35) U/L ALT (4-50) U/L Alkaline Phosphatase (40-150) U/L C-Reactive Protein (0.5-1.0) mg/dL NT-Pro-B Natriuret Pep 625 pg/mL Total Protein (6.0-8.3) g/dL Albumin (3.3-5.0) g/dL Urine Color (Yellow) Urine Appearance (Clear) Urine pH (5.0-8.5) Ur Specific [place] (1.000-1.030) Urine Protein (Negative) Urine Glucose (UA) (Negative) Urine Ketones (Negative) Urine Blood (Negative) Urine Nitrite (Negative) Urine Bilirubin (Negative) Urine Urobilinogen (0.2-1.0) Ur Leukocyte Esterase (Negative) Urine RBC (0-2) Urine WBC (0-5) Ur Squamous Epith Cells (None-Few) Urine Bacteria (None) SARS-CoV-2 (PCR) (Negative) Influenza Type A (PCR) (Negative) Influenza Type B (PCR) (Negative) RSV (PCR) (Negative) Lab Acknowledgement POC Troponin I 0.09 H (0.01-0.04) ng/ml <Kash Youssef MD - Last Filed: 07/05/24 07:36> Imaging Data CT scan - head: Attestation: I have reviewed the pertinent imaging results. 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 <Esme Harman MD - Last Filed: 07/05/24 21:19> Radiologist's impression: IMPRESSION: 1. No acute intracranial hemorrhage or midline shift. 2. Decreased size of the bilateral subdural hematomas. Please note that all CT scans at this facility use dose modulation, iterative reconstruction, and/or weight-based dosing when appropriate to reduce radiation dose to as low as reasonably achievable. Dictated by Steve Marquez MD @ 07/04/2024 11:15:57 PM <Esme Harman MD - Last Filed: 07/05/24 21:19> Critical Care Time Critical Care Time Critical Care Time: Yes (Acute respiratory failure, severe sepsis) Attestation: The patient required my highest level preparedness to intervene emergently and I personally spent this critical care time directly and personally managing the patient. This critical care time included: Obtaining a history; Examining the patient; Pulse oximetry; Ordering and reviewing of studies; Arranging urgent treatment with development of a management plan; Evaluation of patients response to treatment; Frequent reassessment discussions with other providers. This critical care time was performed to assess and manage the high probability of imminent life-threatening deterioration that could result in multiorgan failure. It was exclusive of separate billable procedures and treating other patients and teaching time. <Kash Youssef MD - Last Filed: 07/05/24 07:36> Total Critical Care Time in Minutes: 200 <Kash Youssef MD - Last Filed: 07/05/24 07:36> Discharge Plan Discharge Clinical Impression: Severe sepsis, Acute hypoxemic respiratory failure, Acute urinary tract infection, Complete heart block <Esme Harman MD - Last Filed: 07/05/24 21:19> Patient Disposition: Admitted As Observation <Esme Harman MD - Last Filed: 07/05/24 21:19>
--- OUTSIDE RECORDS SUMMARY | 2024-07-04 23:41 | XMS_ITS | Encounter Summary ---
Author Organization [facility] Address [address] [place] [address] Care Team Providers Care Heating And Ventilating Worker Name Role Phone Diane Riggs M.D. Primary Care Provider +1- [phone] Encounter Details Date Type Department Care Team (Late st Contact Info) Description 06/16/2024 Documentation Department of Neurologic Surgery in [place], [place] [address] [place] [phone] Brea Grissom M.D. 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 [address] [place] [phone] PCP - General 11/10/23 documented as of this encounter
--- OUTSIDE RECORDS SUMMARY | 2024-07-04 23:41 | XMS_ITS | Clinical Summary ---
Author Organization [facility] Address [place], [place] [address] Care Team Providers Care Model Engine Mechanic Name Role Phone Denis Buchanan MD Unavailable [phone] Kwabena Alvares MD Unavailable Unavailabl e Joshua [...] Department Care Team Description 06/16/2024 Orders Only [facility] Scanner 1 scan: (1-Ord) [place], CT CERVICAL SPINE WO CON, 06/16/2024 from [...] on file Legal Sex Male 5:25 AM PRODUCT DIRECTOR Gender Identity Not on file Sexual Orientation Not on file Occupation Industry Job Start Date Job End Date retired Not on file Not on file Not on file Obstetrics History Last Filed Vital Signs Vital Sign Reading Time Taken Comments Blood Pressure 116/75 07/17/2015 11:30 AM PRODUCT DIRECTOR Pulse 73 07/17/2015 11:04 AM PRODUCT DIRECTOR Temperature 36.7 C (98 F) 07/17/2015 11:04 AM PRODUCT DIRECTOR Respiratory Rate - - Oxygen Saturation 100% 07/17/2015 11:04 AM PRODUCT DIRECTOR Inhaled Oxygen Concentration - - Weight 74.4 kg (164 lb) 07/17/2015 11:04 AM PRODUCT DIRECTOR Height 174 cm (5' 8.5) 07/17/2015 11:04 AM PRODUCT DIRECTOR Body Mass Index 24.57 07/17/2015 11:04 AM PRODUCT DIRECTOR Plan of Treatment Health Maintenance Due Date [...] Diagnosis Comments SCAN-CT INTERPRETATION 06/16/2024 12:00 AM PRODUCT DIRECTOR from Last 3 Months Results * SCAN-CT INTERPRETATION (06/16/2024 12:00 AM PRODUCT DIRECTOR) Anatomical Region Laterality Modality Other us Scanner OTHER Final Result from Last 3 Months Insurance MEDICARE PB ONLY MEDICARE PART B HB ONLY [place] Care Teams Model Engine Mechanic Relationship Specialty Start Date End Date Joshua Duran MD [address] [place] [address] PCP - General Family Practice 02/24/15 Denis Buchanan MD [address] [place] [address] Gastroenterology 08/05/11 Kwabena Alvares MD [address] [place] [address] [address] Oncology 07/11/14
--- OUTSIDE RECORDS SUMMARY | 2024-07-04 23:41 | XMS_ITS | Referral Summary ---
Author Organization [facility] Address [address] [place] [address] Care Team Providers Care Wool Fleece Grader Name Role Phone Diane Riggs M.D. Primary Care Provider [phone] Source Comments Patient records contain information from all sites at [facility]. For routine questions regarding patient records, call [phone] during business hours, M-F 8:00 AM - 5:00 PM Central Time. Record requests for emergency care only can be directed to [phone] at any time.[facility] Encounters Date Type Department Care Team Description 07/04/2024 7:44 PM RADIO TELEVISION ANNOUNCER - 07/04/2024 8:58 PM RADIO TELEVISION ANNOUNCER Emergency [facility] [address] [place] [phone] Eliceo Gracia, P.A.-C. Acute Cystitis With Hematuria (Primary Dx) Discharge Disposition: Home or Self Care 07/02/2024 12:00 PM RADIO TELEVISION ANNOUNCER Office Visit Department of Family Medicine, [facility], [address] [phone] Diane Riggs M.D. Matthies, Rebekah M, R.N. Annual Medicare Examination Return (Primary Dx) Discharge Disposition: Home or Self Care 07/02/2024 11:30 AM RADIO TELEVISION ANNOUNCER Office Visit Department of Family Medicine, [facility], [address] [phone] Diane Riggs M.D. Hemorrhage Subdural Trauma Without Loss Of Consciousness Subsequent (Primary Dx); History Of Falling; Incomplete Bladder Emptying; Personal History Of Malignant Neoplasm Of Prostate; Incontinence Fecal; Incontinence Urinary; Anemia; Annual Medicare Examination Return Discharge Disposition: Home or Self Care 06/16/2024 Documentation Department of Neurologic Surgery in [address] [phone] Brea Grissom M.D. 05/30/2024 Clinical Communication Department of Family Medicine, [facility], in [address] [phone] Diane Riggs M.D. PandaDoc Form ([facility] urological supplies) 04/30/2024 Orders Only [facility] Diane Riggs M.[facility]. from Last 3 Months Allergies No known active allergies Medications calcium carbonate 1,500 mg (600 mg calcium) tablet Take 600 mg by mouth. Takes half a tablet daily 1 Active multivitamin tablet Take 0.5 tablets by mouth. 1 Active DME Urological suppliesIndica tions:Incomple te Bladder Emptying Other: [facility] 1 Unspecified 3 Active cefdinir (Omnicef) 300 [...] IIB(T2c, N0, M0, PSA: 10 to 19, [place] 7) - Signed by Kwabena Alvares M.D. [...] drink = 0.6 oz pur e alcohol) [facility] Utilities Answer Date Recorded In the past 12 months has [employer], [employer], oil, or water [employer] threatened to shut off services in your [...] your living situation today? I have a [facility] place to live 07/02/2024 Sex and Gender Information Value Date Recorded Sex Assigned at Male 11/07/2017 10:07 AM CDT Legal Sex Male 6:00 PM RADIO TELEVISION ANNOUNCER Gender Identity Male 11/07/2017 10:07 AM CDT Sexual Orientation Straight 11/07/2017 10 :07 AM CDT Last Filed Vital Signs Vital Sign Reading Time Taken Comments Blood Pressure 127/86 07/04/2024 8:30 PM RADIO TELEVISION ANNOUNCER Pulse 75 07/04/2024 8:30 PM RADIO TELEVISION ANNOUNCER Temperature 36.2 C (97.2 F) 12/29/2023 10:48 AM CDT Respiratory Rate 21 07/04/2024 8:30 PM RADIO TELEVISION ANNOUNCER Oxygen Saturation 97% 07/04/2024 8:30 PM RADIO TELEVISION ANNOUNCER Inhaled Oxygen Concentration - - Weight 66.2 kg (145 lb 15.1 oz) 025 11:21 AM RADIO TELEVISION ANNOUNCER Height 174.5 cm (5' 8.7) 07/02/2024 11 :21 AM RADIO TELEVISION ANNOUNCER Body Mass Index 21.74 07/02/2024 11:21 AM RADIO TELEVISION ANNOUNCER Plan of Treatment Not on file Medical Devices Implanted Type Area Wood Patternmaker Device Identifier Shelf Expiration Date Model / Serial / Lot Marker Gold Seed - [id number] Implanted:Qty: 4 on 07/01/2013 [facility] Other Táximo Description:Device Manufactu rer - Skiipi. Device Status Text - [id number]. Stnt Uret Inl 7fx22 - [id number] Implanted:Qty: 1 on 11/08/2017 by Jose C Arias M.D., M.S. at [facility] Ureteral Stent C.R.Bard [id number] 06/02/2021 [id number] / / [id number] Stnt Uret Inl 7fx22 - [id number] Implanted:Qty: 1 on 11/08/2017 by Jose C Arias M.D., M.S. at [facility] Ureteral Stent C.R.Bard [id number] 06/02/2021 [id number] / / [id number] Conversions - Default Historical Implant Device Implanted:11/04 (Quantity not on file) Urologic Other Description:Device Status Te xt - UrologOth. radiation beads. Procedures Procedure Name Priority Date/Time Associated Diagnosis Comments MICROSCOPIC MANUAL Routine 07/04/2024 7: 57 PM RADIO TELEVISION ANNOUNCER URINALYSIS WITH MICROSCOPIC IF INDICATED, U Routine 07/04/2024 7:57 PM RADIO TELEVISION ANNOUNCER COMPREHENSIVE METABOLIC PANEL, S/P STAT 07/04/2024 7:55 PM RADIO TELEVISION ANNOUNCER CBC WITH DIFFERENTIAL, B STAT 07/04/2024 7:55 PM RADIO TELEVISION ANNOUNCER ECG STAT 07/04/2024 7:37 PM RADIO TELEVISION ANNOUNCER OUTSIDE CT NEURO Routine 06/16/2024 10:0 0 PM RADIO TELEVISION ANNOUNCER OUTSIDE CT NEURO Routine 06/16/2024 3:55 PM RADIO TELEVISION ANNOUNCER OUTSIDE CT NEURO Routine 06/16/2024 3:50 PM RADIO TELEVISION ANNOUNCER from Last 3 Months Results * (ABNORMAL) Urinalysis with Microscopic if Indicated: Urine, Midstream (07/04/2024 7:57 PM RADIO TELEVISION ANNOUNCER) Source Urine, Urine, Midstream 07/04/2024 8:01 PM RADIO TELEVISION ANNOUNCER CNFL Clarity Cloudy(A) Clear 07/04/2024 8:04 PM RADIO TELEVISION ANNOUNCER [facility] Color Yellow 07/04/2024 8:04 PM RADIO TELEVISION ANNOUNCER CNFL Comment: ----REFERENCE VALUE---- Colorless Yellow Kayla Blood Small(A) Negative 07/04/2024 8:04 PM RADIO TELEVISION ANNOUNCER CNFL Nitrite Negative Negative 07/04/2024 8:04 PM RADIO TELEVISION ANNOUNCER [facility] Leukocyte Esterase Large(A) Negative 07/04/2024 8:04 PM RADIO TELEVISION ANNOUNCER [facility] Protein 30(A) mg/dL 07/04/2024 8:04 PM RADIO TELEVISION ANNOUNCER [facility] Comment: ----REFERENCE VALUE---- Negative Trace Glucose Negative Negative mg/dL 07/04/2024 8:04 PM RADIO TELEVISION ANNOUNCER CNFL Ketones, QI(U) Negative Negative mg/dL 07/04/2024 8:04 PM RADIO TELEVISION ANNOUNCER [facility]FL Bilirubin Negative Negative 07/04/2024 8:04 PM RADIO TELEVISION ANNOUNCER [facility] pH 7.0 5.0 - 8.0 07/04/2024 8:04 PM RADIO TELEVISION ANNOUNCER [facility] Specific Kennan 1.015 1.001 - 1.035 07/04/2024 8:04 PM RADIO TELEVISION ANNOUNCER [facility]FL Urobilinogen 0.2 0.2 - 1.0 mg/dL 07/04/2024 8:04 PM RADIO TELEVISION ANNOUNCER [facility]FL Urine (Urine, Midstream) 07/04/2024 7:57 PM RADIO TELEVISION ANNOUNCER 07/04/2024 8:01 PM RADIO TELEVISION ANNOUNCER us Eliceo Garcia P.A.-C. LAB URINE ORDERABLES Fin al Result [facility] [address] [place] [id number], [facility] [address] [address] * (ABNORMAL) Microscopic Manual (07/04/2024 7:57 PM RADIO TELEVISION ANNOUNCER) White Blood Cells 41-50(A) /hpf 07/04/2024 8:13 PM RADIO TELEVISION ANNOUNCER [facility] Comment: ----REFERENCE VALUE---- Males: 0-3 Females: 0-10 Unknown: 0-10 Red Blood Cells 3-10(A) 0 - 2 /hpf 8:13 PM RADIO TELEVISION ANNOUNCER [facility]FL Dysmorphic Red Blood Cells <=25 <=25 % 07/04/2024 8:13 PM RADIO TELEVISION ANNOUNCER [facility] Squamous Cells Occ-3 /hpf 07/04/2024 8:13 PM RADIO TELEVISION ANNOUNCER [facility] Bacteria Present(A) None Seen 07/04/2024 8:13 PM RADIO TELEVISION ANNOUNCER CNFL Urine 07/04/2024 7:57 PM RADIO TELEVISION ANNOUNCER 07/04/2024 8:01 PM RADIO TELEVISION ANNOUNCER us Eliceo Garcia P.A.-C. LAB URINE ORDERABLES Fin al Result [facility] [address] [place] [address], [facility] CNFL [facility] [address] * (ABNORMAL) CBC with Differential, Blood (07/04/2024 7:55 PM RADIO TELEVISION ANNOUNCER) Hemoglobin 13.1(L) 13.2 - 16.6 g/dL 07/04/2024 8:05 PM RADIO TELEVISION ANNOUNCER CNFL Hematocrit 39.8 38.3 - 48.6 % 07/04/2024 8:05 PM RADIO TELEVISION ANNOUNCER [facility]FL Erythrocytes 4.42 4.35 - 5.65 x10(12)/L 07/04/2024 8:05 PM RADIO TELEVISION ANNOUNCER [facility]FL MCV 90.0 78.2 - 97.9 fL 07/04/2024 8:05 PM RADIO TELEVISION ANNOUNCER [facility] RBC Distrib Width 12.1 11.8 - 14.5 % 07/04/2024 8:05 PM RADIO TELEVISION ANNOUNCER [facility] Platelet Count 225 135 - 317 x10(9)/L 07/04/2024 8:05 PM RADIO TELEVISION ANNOUNCER CNFL Leukocytes 7.8 3.4 - 9.6 x10(9)/L 07/04/2024 8:05 PM RADIO TELEVISION ANNOUNCER CNFL Neutrophils 5.93 1.56 - 6.45 x10(9)/L 07/04/2024 8:05 PM RADIO TELEVISION ANNOUNCER [facility]FL Lymphocytes 1.10 0.95 - 3.07 x10(9)/L 07/04/2024 8:05 PM RADIO TELEVISION ANNOUNCER CNFL Monocytes 0.68 0.26 - 0.81 x10(9)/L 07/04/2024 8:05 PM RADIO TELEVISION ANNOUNCER [facility]FL Eosinophils 0.08 0.03 - 0.48 x10(9)/L 07/04/2024 8:05 PM RADIO TELEVISION ANNOUNCER [facility]FL Basophils <0.04 0.01 - 0.08 x10(9)/L 07/04/2024 8:05 PM RADIO TELEVISION ANNOUNCER [facility] Blood (Blood, Venous) 07/04/2024 7:55 PM RADIO TELEVISION ANNOUNCER 07/04/2024 8:00 PM RADIO TELEVISION ANNOUNCER us Eliceo Garcia P.A.-C. LAB BLOOD ADD-ON Final R esult [facility] [address] [place] [address], [facility] [place] [address] * (ABNORMAL) Comprehensive Metabolic Panel (07/04/2024 7:55 PM RADIO TELEVISION ANNOUNCER) Potassium, P 4.9 3.6 - 5.2 mmol/L 07/04/2024 8:18 PM RADIO TELEVISION ANNOUNCER CNFL Sodium, P 140 135 - 145 mmol/L 07/04/2024 8:18 PM RADIO TELEVISION ANNOUNCER [facility]FL Chloride, P 102 98 - 107 mmol/L 07/04/2024 8:18 PM RADIO TELEVISION ANNOUNCER CNFL Bicarbonate, P 32(H) 22 - 29 mmol/L 07/04/2024 8:19 PM RADIO TELEVISION ANNOUNCER [facility] Anion Gap, P 6(L) 7 - 15 07/04/2024 8:18 PM RADIO TELEVISION ANNOUNCER [facility] BUN (Blood Urea Nitrogen), P 19 8 - 24 mg/dL 07/04/2024 8:19 PM RADIO TELEVISION ANNOUNCER CNFL Creatinine 0.97 0.74 - 1.35 mg/dL 07/04/2024 8:19 PM RADIO TELEVISION ANNOUNCER CNFL Estimated GFR (eGFR) 77 >=60 mL/min/BS A 07/04/2024 8:19 PM RADIO TELEVISION ANNOUNCER [facility] Comment: Estimated GFR calculated using the 2020 CKD_EPI creatinine equation. Calcium, Total, P 9.1 8.8 - 10.2 mg/dL 07/04/2024 8:19 PM RADIO TELEVISION ANNOUNCER CNFL Glucose, P 108 70 - 140 mg/dL 07/04/2024 8:19 PM RADIO TELEVISION ANNOUNCER CNFL Protein, Total, P 6.1(L) 6.3 - 7.9 g/dL 07/04/2024 8:19 PM RADIO TELEVISION ANNOUNCER CNFL Albumin, P 3.8 3.5 - 5.0 g/dL 07/04/2024 8:19 PM RADIO TELEVISION ANNOUNCER CNFL Aspartate Aminotransferase (AST), P 35 8 - 48 U/L 07/04/2024 8:19 PM RADIO TELEVISION ANNOUNCER CNFL Alkaline Phosphatase, P 82 40 - 129 U/L 07/04/2024 8:19 PM RADIO TELEVISION ANNOUNCER CNFL Alanine Aminotransferase (ALT), P 18 7 - 55 U/L 07/04/2024 8:19 PM RADIO TELEVISION ANNOUNCER CNFL Bilirubin, Total, P 0.4 0.0 - 1.2 mg/dL 07/04/2024 8:19 PM RADIO TELEVISION ANNOUNCER CNFL Blood (Blood, Venous) 07/04/2024 7:55 PM RADIO TELEVISION ANNOUNCER 07/04/2024 8:00 PM RADIO TELEVISION ANNOUNCER Eliceo Garcia P.A.-C. LAB BLOOD ADD-ON Final R esult [facility] [address] [place] [id number], [facility] CNFL [facility] in [address] [address] * ECG 12 Lead (07/04/2024 7:37 PM RADIO TELEVISION ANNOUNCER) Ventricular Rate ECG/Min 73 BPM MUSE TX Interval 162 ms MUSE QRSD Interval 94 ms MUSE QT Interval 376 ms MUSE QTC Interval 414 ms MUSE P [place] 77 degrees MUSE R [place] 58 degrees MUSE T Wave [place] 71 degrees MUSE 07/04/2024 7:37 PM RADIO TELEVISION ANNOUNCER 07/04/2024 7:51 PM RADIO TELEVISION ANNOUNCER Impressions MUSE - 07/04/2024 7:41 PM RADIO TELEVISION ANNOUNCER Normal sinus rhythm When compared with ECG of 08-Nov-2017 18:23, Premature ventricular complexes are no longer present QT has shortened Narrative Procedure Note Ethan Clay M.D. - 07/04/2024 IMPRESSION: Normal sinus rhythm When compared with ECG of 08-Nov-2017 18:23, Premature ventricular complexes are no longer present QT has shortened us Eliceo Garcia P.A.-C. ECG ORDERABLES Edited R esult - Final Performing Organization Address [facility] Co de Phone Number MUSE NA * CT HEAD/BRAIN WO CON-Outside CT Neuro (06/16/2024 10:00 PM RADIO TELEVISION ANNOUNCER) Only the most recent of3 resultswithin the time period is included. 06/16/2024 10:0 0 PM RADIO TELEVISION ANNOUNCER Narrative IIMS - 06/16/2024 11:48 PM RADIO TELEVISION ANNOUNCER This order has been created and auto-finalized [...] PROCEDURES Final R esult Performing Organization Address [facility] Co de Phone Number IIMS NA from Last 3 Months Insurance MEDICARE BLUE CROSS BLUE SHIELD Care Teams Wool Fleece Grader Relationship Specialty Start Date End Date Diane Riggs M.D. [address] [place] [phone] PCP - General 11/10/23
--- OUTSIDE RECORDS SUMMARY | 2024-07-04 23:41 | XMS_ITS | Encounter Summary ---
Author Organization [facility] Address [address] [place] [address] Care Team Providers Care Soda Fountain Clerk Name Role Phone Diane Riggs M.D. Primary Care Provider +1- [phone] Reason for Referral * Outpatient (Routine) - Authorized Specialty Diagnoses / Procedures Referred By Michelle gardner Referred To Contact Diane Riggs M.D. [id number] [place] [phone] Phone: tel: fax: [facility] Region Referral ID Status Reason Start Date Expiration Date V isits Requested Visits Authorized [id number] Authorized 07/02/2024 01/01/2026 1 1 Scheduling Instructions 12-Month Medicare Visit S FORECAST ANALYST Reason for Visit * Reason Comments Medicare Annual Wellness Visit Subsequen t * Outpatient (Routine) - Closed Specialty Diagnoses / Procedures Referred By Michelle gardner Referred To Contact Diane Riggs M.D. [id number] [place] [phone] Phone: tel: fax: [facility] Region Referral ID Status Reason Start Date Expiration Date Visits Re quested Visits Authorized [id number] Closed 04/30/2024 10/30/2025 1 1 Encounter Details Date Type Department Care Team (Late st Contact Info) Description 07/02/2024 12:00 PM SALES FORECAST ANALYST Office Visit Department of Family Medicine, [facility], in [address] [phone] Diane Riggs M.D. [address] [place] [phone] Lyric Hurley R.N. [address] [place] [phone] Annual Medicare Examination Return (Primary Dx) Discharge Disposition: Home or Self Care Social History Tobacco Use Types Packs/Day Years Used Date Smoking Tobacco: Never Smokeless Tobacco: Never Alcohol Use Standard Drinks/Week Comments No 0 (1 standard drink = 0.6 oz pur e alcohol) [facility] Utilities Answer Date Recorded In the past 12 months has [employer], gas, oil, or water [email or web address] threatened to shut off services in your [...] AM CDT Legal Sex Male 6:00 PM SALES FORECAST ANALYST Gender Identity Male 11/07/2017 10:07 AM [...] falls. Would like to be referred to [place] [facility]rologist. Pt very active not only with outside gardening and [place] [employer] but also in his home gym [...] reviewed and patient provided with printed copy S FORECAST ANALYST documented in this encounter Plan of Treatment Scheduled Referrals Name Type Priority Associated Diagnoses Orde r Schedule Primary Care nurse visit (clinic) - [facility] Region; Medicare Annual Wellness Outpatient Referral Routine Expected: 07/02/2025 (Approximate), Expires: 09/30/2025 documented as of this encounter Visit Diagnoses Diagnosis Annual Medicare Examination Return- Primary documented in this encounter Care Teams Soda Fountain Clerk Relationship Specialty Start Date End Date Diane Riggs M.D. [address] [place] [phone] PCP - General 11/10/23 documented as of this encounter
--- OUTSIDE RECORDS SUMMARY | 2024-07-04 23:41 | XMS_ITS | Continuity of Care Document ---
Author Name [email or web address] Address Unknown Organization Unknown Address Unknown Encounters FILTER APPLIED:Only known Encounters with Admission Date within the last 5 years Encounter Location Admission Discharge Billing Code Adult Basic Education Instructor Flynn rivas Emergency Emergency
--- OUTSIDE RECORDS SUMMARY | 2024-07-04 23:41 | XMS_ITS | Clinical Summary ---
Author Organization [facility] Address [address] [place] [address] Care Team Providers Care Account Manager Education Name Role Phone Diane Riggs M.D. Primary Care Provider [phone]- [phone] Source Comments Patient records contain information from all sites at [facility]. For routine questions regarding patient records, call [phone] during business hours, M-F 8:00 AM - 5:00 PM Central Time. Record requests for emergency care only can be directed to [phone] at any time.[facility] Allergies No known active allergies Medications calcium carbonate 1,500 mg (600 mg calcium) tablet Take 600 mg by mouth. Takes half a tablet daily 1 Active multivitamin tablet Take 0.5 tablets by mouth. 1 Active DME Urological suppliesIndica tions:Incomple te Bladder Emptying Other: Antione Drug [place] 1 Unspecified 3 Active cefdinir (Omnicef) 300 [...] Department Care Team Description 07/04/2024 7:44 PM SHOEBLACK - 07/04/2024 8:58 PM [facility]OE[facility]ACK Emergency [place] [facility] [address] [place] [phone] Eliceo Garcia, PLcALc-Tramaine. Acute Cystitis With Hematuria (Primary Dx) Discharge Disposition: Home or Self Care 07/02/2024 12:00 PM SHOEBLACK Office Visit Department of [facility] Medicine, [facility], [address] [phone] Diane Riggs M.D. Matthies, Rebekah M, R.N. Annual Medicare Examination Return (Primary Dx) Discharge Disposition: Home or Self Care 07/02/2024 11:30 AM SHOEBLACK Office Visit Department of Family Medicine, [facility], in [address] [phone] Diane Riggs M.D. Hemorrhage Subdural Trauma Without Loss Of Consciousness Subsequent (Primary Dx); History Of Falling; Incomplete Bladder Emptying; Personal History Of Malignant Neoplasm Of Prostate; Incontinence Fecal; Incontinence Urinary; Anemia; Annual Medicare Examination Return Discharge Disposition: Home or Self Care 06/16/2024 Documentation Department of Neurologic Surgery in [address] [phone] Brea Grissom M.D. 05/30/2024 Clinical Communication Department of Family Medicine, [facility], in [address] [phone] Diane Riggs M.D. [facility] Form ([facility] urological supplies) 04/30/2024 Orders Only [facility] Diane Roche M.D. from Last 3 [...] In the past 12 months has e [employer], gas, oil, or water company threatened to [...] your living situation today? I have a [facility] place to live 07/02/2024 Sex and Gender Information Value Date Recorded Sex Assigned at Male 11/07/2017 10:07 AM CDT Legal Sex Male 6:00 PM SHOEBLACK Gender Identity Male 11/07/2017 10:07 AM CDT Sexual Orientation Straight 11/07/2017 10 :07 AM CDT Last Filed Vital Signs Vital Sign Reading Time Taken Comments Blood Pressure 127/86 07/04/2024 8:30 PM SHOEBLACK Pulse 75 07/04/2024 8:30 PM SHOEBLACK Temperature 36.2 C (97.2 F) 12/29/2023 10:48 AM CDT Respiratory Rate 21 07/04/2024 8:30 PM SHOEBLACK Oxygen Saturation 97% 07/04/2024 8:30 PM SHOEBLACK Inhaled Oxygen Concentration - - Weight 66.2 kg (145 lb 15.1 oz) 025 11:21 AM SHOEBLACK Height 174.5 cm (5' 8.7) 07/02/2024 11 :21 AM SHOEBLACK Body Mass Index 21.74 07/02/2024 11:21 AM SHOEBLACK Plan of Treatment Health Maintenance Due Date [...] this topic Medical Devices Implanted Type Area Seismograph Computer Device Identifier Shelf Expiration Date Model / Serial / Lot Marker Gold Seed - [id number] Implanted:Qty: 4 on 07/01/2013 [facility] Other [employer] Description:Device Manufactu rer - Scribd.. Device Status Text - [id number]. Stnt Uret Inl 7fx22 - [id number] Implanted:Qty: 1 on 11/08/2017 by Jose C Arias M.D., M.S. at [facility] Ureteral Stent C.[employer].Bard [id number] 06/02/2021 [id number] / / [id number] Stnt Uret Inl 7fx22 - [id number] Implanted:Qty: 1 on 11/08/2017 by Jose C Arias M.D., M.S. at [facility] Ureteral Stent C.[employer]ard [id number] 06/02/2021 [id number] / / [id number] Conversions - Default Historical Implant Device Implanted:11/04 (Quantity not on file) Urologic Other Description:Device Status Te xt - UrologOth. radiation beads. Procedures Procedure Name Priority Date/Time Associated Diagnosis Comments MICROSCOPIC MANUAL Routine 07/04/2024 7: 57 PM [facility]OE[facility]ACK URINALYSIS WITH MICROSCOPIC IF INDICATED, U Routine 07/04/2024 7:57 PM [facility] COMPREHENSIVE METABOLIC PANEL, S/P STAT 07/04/2024 7:55 PM SHOEBLACK CBC WITH DIFFERENTIAL, B STAT 07/04/2024 7:55 PM [facility] ECG STAT 07/04/2024 7:[address] NEURO Routine 06/16/2024 10:0 [address] NEURO Routine 06/16/2024 3:[address] NEURO Routine 06/16/2024 3:50 PM SHOEBLACK from Last 3 Months Results * (ABNORMAL) Urinalysis with Microscopic if Indicated: Urine, Midstream (07/04/2024 7:57 PM SHOEBLACK) Source Urine, Urine, Midstream 07/04/2024 8:01 PM [facility] CNFL Clarity Cloudy(A) Clear 07/04/2024 8:04 PM [facility] CNFL Color Yellow 07/04/2024 8:04 PM [facility] CNFL Comment: ----REFERENCE VALUE---- Colorless Yellow Kayla Blood Small(A) Negative 07/04/2024 8:04 PM [facility] CNFL Nitrite Negative Negative 07/04/2024 8:04 PM [facility] CNFL Leukocyte Esterase Large(A) Negative 07/04/2024 8:04 PM [facility] CNFL Protein 30(A) mg/dL 07/04/2024 8:04 PM [facility] CNFL Comment: ----REFERENCE VALUE---- Negative Trace Glucose Negative Negative mg/dL 07/04/2024 8:04 PM [facility] CNFL Ketones, QI(U) Negative Negative mg/dL 07/04/2024 8:04 PM [facility] CNFL Bilirubin Negative Negative 07/04/2024 8:04 PM [facility] CNFL pH 7.0 5.0 - 8.0 07/04/2024 8:04 PM [facility]OE[facility] CNFL Specific [place] 1.015 1.001 - 1.035 07/04/2024 8:04 PM [facility] CNFL Urobilinogen 0.2 0.2 - 1.0 mg/dL 07/04/2024 8:04 PM [facility] CNFL Urine (Urine, Midstream) 07/04/2024 7:57 PM SHOEBLACK 07/04/2024 8:01 PM SHOEBLACK Eliceo Garcia P.A.-C. LAB URINE ORDERABLES Fin al Result Performing Organization Address [facility] [place] [address], [facility] CNFL [facility] [place] [address] * (ABNORMAL) Microscopic Manual (07/04/2024 7:57 PM SHOEBLACK) White Blood Cells 41-50(A) /hpf 07/04/2024 8:13 PM [facility]OE[facility] CNFL Comment: ----REFERENCE VALUE---- Males: 0-3 Females: 0-10 Unknown: 0-10 Red Blood Cells 3-10(A) 0 - 2 /hpf 8:13 PM SHOE[facility]ACK CNFL Dysmorphic Red Blood Cells <=25 <=25 % 07/04/2024 8:13 PM [facility] CNFL Squamous Cells Occ-3 /hpf 07/04/2024 8:13 PM [facility] CNFL Bacteria Present(A) None Seen 07/04/2024 8:13 PM [facility] CNFL Urine 07/04/2024 7:57 PM SHOEBLACK 07/04/2024 8:01 PM SHOEBLACK Eliceo Garcia P.A.-C. LAB URINE ORDERABLES Fin al Result Performing Organization Address City/[facility]/ZIP Co de Phone Number [address] [place] [address], [facility] CNFL [facility] in [address] [address] * (ABNORMAL) CBC with Differential, Blood (07/04/2024 7:55 PM SHOEBLACK) [facility] Signature Hemoglobin 13.1(L) 13.2 - 16.6 g/dL 07/04/2024 8:05 PM [facility]OE[facility]ACK CNFL Hematocrit 39.8 38.3 - 48.6 % 07/04/2024 8:05 PM [facility] CNFL Erythrocytes 4.42 4.35 - 5.65 x10(12)/L 07/04/2024 8:05 PM [facility] CNFL MCV 90.0 78.2 - 97.9 fL 07/04/2024 8:05 PM [facility] CNFL RBC Distrib Width 12.1 11.8 - 14.5 % 07/04/2024 8:05 PM [facility] CNFL Platelet Count 225 135 - 317 x10(9)/L 07/04/2024 8:05 PM [facility] CNFL Leukocytes 7.8 3.4 - 9.6 x10(9)/L 07/04/2024 8:05 PM [facility] CNFL Neutrophils 5.93 1.56 - 6.45 x10(9)/L 07/04/2024 8:05 PM [facility] CNFL Lymphocytes 1.10 0.95 - 3.07 x10(9)/L 07/04/2024 8:05 PM [facility] CNFL Monocytes 0.68 0.26 - 0.81 x10(9)/L 07/04/2024 8:05 PM [facility] CNFL Eosinophils 0.08 0.03 - 0.48 x10(9)/L 07/04/2024 8:05 PM [facility]ACK CNFL Basophils <0.04 0.01 - 0.08 x10(9)/L 07/04/2024 8:05 PM [facility] CNFL Blood (Blood, Venous) 07/04/2024 7:55 PM SHOEBLACK 07/04/2024 8:00 PM SHOEBLACK us Eliceo Garcia P.A.-C. LAB BLOOD ADD-ON Final R esult [facility] [address] [place] [id number], [facility] CNFL [facility] in [address] [address] * (ABNORMAL) Comprehensive Metabolic Panel (07/04/2024 7:55 PM SHOEBLACK) Potassium, P 4.9 3.6 - 5.2 mmol/L 07/04/2024 8:18 PM [facility] CNFL Sodium, P 140 135 - 145 mmol/L 07/04/2024 8:18 PM [facility] CNFL Chloride, P 102 98 - 107 mmol/L 07/04/2024 8:18 PM [facility] CNFL Bicarbonate, P 32(H) 22 - 29 mmol/L 07/04/2024 8:19 PM [facility] CNFL Anion Gap, P 6(L) 7 - 15 07/04/2024 8:18 PM [facility] CNFL BUN (Blood Urea Nitrogen), P 19 8 - 24 mg/dL 07/04/2024 8:19 PM [facility] CNFL Creatinine 0.97 0.74 - 1.35 mg/dL 07/04/2024 8:19 PM [facility] CNFL Estimated GFR (eGFR) 77 >=60 mL/min/BS A 07/04/2024 8:19 PM SHOEBLACK CNFL Comment: Estimated GFR calculated using the 2020 CKD_EPI creatinine equation. Calcium, Total, P 9.1 8.8 - 10.2 mg/dL 07/04/2024 8:19 PM [facility] CNFL Glucose, P 108 70 - 140 mg/dL 07/04/2024 8:19 PM [facility] CNFL Protein, Total, P 6.1(L) 6.3 - 7.9 g/dL 07/04/2024 8:19 PM [facility] CNFL Albumin, P 3.8 3.5 - 5.0 g/dL 07/04/2024 8:19 PM [facility] CNFL Aspartate Aminotransferase (AST), P 35 8 - 48 U/L 07/04/2024 8:19 PM [facility] CNFL Alkaline Phosphatase, P 82 40 - 129 U/L 07/04/2024 8:19 PM [facility] CNFL Alanine Aminotransferase (ALT), P 18 7 - 55 U/L 07/04/2024 8:19 PM [facility] CNFL Bilirubin, Total, P 0.4 0.0 - 1.2 mg/dL 07/04/2024 8:19 PM [facility] CNFL Blood (Blood, Venous) 07/04/2024 7:55 PM SHOEBLACK 07/04/2024 8:00 PM SHOEBLACK Eliceo Garcia P.A.-C. LAB BLOOD ADD-ON Final R esult Performing Organization Address City/[facility]/ZIP Co de Phone Number [facility] [address] [place] [phone], [facility] CNFL [facility] [place] [address] * ECG 12 Lead (07/04/2024 7:37 PM SHOEBLACK) Ventricular Rate ECG/Min 73 BPM MUSE NM Interval 162 ms MUSE QRSD Interval 94 ms MUSE QT Interval 376 ms MUSE QTC Interval 414 ms MUSE P [place] 77 degrees MUSE R [place] 58 degrees MUSE T Wave [place] 71 degrees MUSE 07/04/2024 7:37 PM SHOEBLACK 07/04/2024 7:51 PM SHOEBLACK Impressions MUSE - 07/04/2024 7:41 PM SHOEBLACK Normal sinus rhythm When compared with ECG [...] WO CON-Outside CT Neuro (06/16/2024 10:00 PM SHOEBLACK) Only the most recent of3 resultswithin the time period is included. 06/16/2024 10:0 0 PM SHOEBLACK Narrative IIMS - 06/16/2024 11:48 PM SHOEBLACK This order has been created and auto-finalized [...] NA from Last 3 Months Insurance MEDICARE [facility] Care Teams Account Manager Education Relationship Specialty Start Date End Date Diane Riggs M.D. [phone] [phone] PCP - General 11/10/23
--- OUTSIDE RECORDS SUMMARY | 2024-07-04 23:41 | XMS_ITS ---
Author Organization [facility] Address [address] [place] [address] Care Team Providers Care Lapeler Name Role Phone Unavailable Unavailable Unavailable Surgery Details Not on file Complications Check Surgery Details section. Procedure Estimated Blood Loss Check Surgery Details section. Procedure Findings Check Surgery Details section. Procedure Specimens Taken Check Surgery Details section.
--- OUTSIDE RECORDS SUMMARY | 2024-07-04 23:41 | XMS_ITS | Encounter Summary ---
Author Organization [facility] Address [address] [place] [address] Care Team Providers Care Manager Intensive Care Unit Name Role Phone Diane Riggs M.D. Primary Care Provider +1- [phone] Encounter Details Date Type Department Care Team (Late st Contact Info) Description 07/04/2024 7:44 PM BUNDLE BREAKER - 07/04/2024 8:58 PM BUNDLE BREAKER Emergency [facility] [address] [place] [phone] Eliceo Garcia, P.A.-C. [address] [place] [phone] Acute Cystitis With Hematuria (Primary Dx) Discharge Disposition: Home or Self Care Social History Tobacco Use Types Packs/Day Years Used Date Smoking Tobacco: Never Smokeless Tobacco: Never Alcohol Use Standard Drinks/Week Comments No 0 (1 standard drink = 0.6 oz pur e alcohol) [facility] Utilities Answer Date Recorded In the past 12 months has [employer], gas, oil, or water company threatened to [...] your living situation today? [facility] 07/02/2024 Sex and Gender Information Value Date Recorded Sex Assigned at Male 11/07/2017 10:07 AM CDT Legal Sex Male 6:00 PM BUNDLE BREAKER Gender Identity Male 11/07/2017 10:07 AM CDT Sexual Orientation Straight 11/07/2017 10 :07 AM CDT documented as of this encounter Last Filed Vital Signs Vital Sign Reading Time Taken Comments Blood Pressure 127/86 07/04/2024 8:30 PM BUNDLE BREAKER Pulse 75 07/04/2024 8:30 PM BUNDLE BREAKER Temperature - - Respiratory Rate 21 07/04/2024 8:30 PM BUNDLE BREAKER Oxygen Saturation 97% 07/04/2024 8:30 PM BUNDLE BREAKER Inhaled Oxygen Concentration - - Weight - - Height - - Body Mass Index - - documented in this encounter Discharge Instructions * Discharge Instructions* Eliceo Garcia, P.A.-C. - 07/04/2024 8:38 PM BUNDLE BREAKER Please return to the ER immediately if new symptoms develop, symptoms fail to improve, symptoms worsen, or you becomes concerned LE BREAKER * Attachments The following attachments cannot be sent through Care Everywhere. * Urinary Tract Infection Adult (Kinyarwanda) documented in this encounter Medications at Time of Discharge calcium carbonate 1,500 mg (600 mg calcium) tablet Take 600 mg by mouth. Takes half a tablet daily 07/07/2010 cefdinir (Omnicef) 300 mg capsuleIndicatio ns:Acute Cystitis With Hematuria Take 1 capsule (300 mg total) by mouth every 12 (twelve) hours. 14 capsule 07/04/2024 DME Urological suppliesIndicati ons:Incomplete Bladder Emptying Other: [employer] Trough 1 Unspecified 03/07/2023 multivitamin tablet Take 0.5 tablets by mouth. 07/07/2010 documented as of this encounter Plan of Treatment Not on file documented as of this encounter Procedures Procedure Name Priority Date/Time Associated Diagnosis Comments URINALYSIS WITH MICROSCOPIC IF INDICATED, U Routine 07/04/2024 7:57 PM BUNDLE BREAKER MICROSCOPIC MANUAL Routine 07/04/2024 7: 57 PM BUNDLE BREAKER CBC WITH DIFFERENTIAL, B STAT 07/04/2024 7:55 PM BUNDLE BREAKER COMPREHENSIVE METABOLIC PANEL, S/P STAT 07/04/2024 7:55 PM BUNDLE BREAKER ECG STAT 07/04/2024 7:37 PM BUNDLE BREAKER documented in this encounter Results * (ABNORMAL) Microscopic Manual (07/04/2024 7:57 PM BUNDLE BREAKER) White Blood Cells 41-50(A) /hpf 07/04/2024 8:13 PM BUNDLE BREAKER CNFL Comment: ----REFERENCE VALUE---- Males: 0-3 Females: 0-10 Unknown: 0-10 Red Blood Cells 3-10(A) 0 - 2 /hpf 8:13 PM BUNDLE BREAKER CNFL Dysmorphic Red Blood Cells <=25 <=25 % 07/04/2024 8:13 PM BUNDLE BREAKER CNFL Squamous Cells Occ-3 /hpf 07/04/2024 8:13 PM BUNDLE BREAKER CNFL Bacteria Present(A) None Seen 07/04/2024 8:13 PM BUNDLE BREAKER CNFL Urine 07/04/2024 7:57 PM BUNDLE BREAKER 07/04/2024 8:01 PM BUNDLE BREAKER Eliceo Garcia P.A.-C. LAB URINE ORDERABLES Fin al Result [facility] [address] [place] [id number], [facility] CNFL [facility] [place] [address] * (ABNORMAL) Urinalysis with Microscopic if Indicated: Urine, Midstream (07/04/2024 7:57 PM BUNDLE BREAKER) Source Urine, Urine, Midstream 07/04/2024 8:01 PM BUNDLE BREAKER CNFL Clarity Cloudy(A) Clear 07/04/2024 8:04 PM BUNDLE BREAKER CNFL Color Yellow 07/04/2024 8:04 PM BUNDLE BREAKER CNFL Comment: ----REFERENCE VALUE---- Colorless Yellow Kayla Blood Small(A) Negative 07/04/2024 8:04 PM BUNDLE BREAKER CNFL Nitrite Negative Negative 07/04/2024 8:04 PM BUNDLE BREAKER CNFL Leukocyte Esterase Large(A) Negative 07/04/2024 8:04 PM BUNDLE BREAKER CNFL Protein 30(A) mg/dL 07/04/2024 8:04 PM BUNDLE BREAKER CNFL Comment: ----REFERENCE VALUE---- Negative Trace Glucose Negative Negative mg/dL 07/04/2024 8:04 PM BUNDLE BREAKER CNFL Ketones, QI(U) Negative Negative mg/dL 07/04/2024 8:04 PM BUNDLE BREAKER CNFL Bilirubin Negative Negative 07/04/2024 8:04 PM BUNDLE BREAKER CNFL pH 7.0 5.0 - 8.0 07/04/2024 8:04 PM BUNDLE BREAKER CNFL Specific [place] 1.015 1.001 - 1.035 07/04/2024 8:04 PM BUNDLE BREAKER CNFL Urobilinogen 0.2 0.2 - 1.0 mg/dL 07/04/2024 8:04 PM BUNDLE BREAKER CNFL Urine (Urine, Midstream) 07/04/2024 7:57 PM BUNDLE BREAKER 07/04/2024 8:01 PM BUNDLE BREAKER us Eliceo Garcia P.A.-C. LAB URINE ORDERABLES Fin al Result [facility] [address] [place] [phone], [facility] CNFL [facility] in [address] [address] * (ABNORMAL) Comprehensive Metabolic Panel (07/04/2024 7:55 PM BUNDLE BREAKER) Potassium, P 4.9 3.6 - 5.2 mmol/L 07/04/2024 8:18 PM BUNDLE BREAKER CNFL Sodium, P 140 135 - 145 mmol/L 07/04/2024 8:18 PM BUNDLE BREAKER CNFL Chloride, P 102 98 - 107 mmol/L 07/04/2024 8:18 PM BUNDLE BREAKER CNFL Bicarbonate, P 32(H) 22 - 29 mmol/L 07/04/2024 8:19 PM BUNDLE BREAKER CNFL Anion Gap, P 6(L) 7 - 15 07/04/2024 8:18 PM BUNDLE BREAKER CNFL BUN (Blood Urea Nitrogen), P 19 8 - 24 mg/dL 07/04/2024 8:19 PM BUNDLE BREAKER CNFL Creatinine 0.97 0.74 - 1.35 mg/dL 07/04/2024 8:19 PM BUNDLE BREAKER CNFL Estimated GFR (eGFR) 77 >=60 mL/min/BS A 07/04/2024 8:19 PM BUNDLE BREAKER CNFL Comment: Estimated GFR calculated using the 2020 CKD_EPI creatinine equation. Calcium, Total, P 9.1 8.8 - 10.2 mg/dL 07/04/2024 8:19 PM BUNDLE BREAKER CNFL Glucose, P 108 70 - 140 mg/dL 07/04/2024 8:19 PM BUNDLE BREAKER CNFL Protein, Total, P 6.1(L) 6.3 - 7.9 g/dL 07/04/2024 8:19 PM BUNDLE BREAKER CNFL Albumin, P 3.8 3.5 - 5.0 g/dL 07/04/2024 8:19 PM BUNDLE BREAKER CNFL Aspartate Aminotransferase (AST), P 35 8 - 48 U/L 07/04/2024 8:19 PM BUNDLE BREAKER CNFL Alkaline Phosphatase, P 82 40 - 129 U/L 07/04/2024 8:19 PM BUNDLE BREAKER CNFL Alanine Aminotransferase (ALT), P 18 7 - 55 U/L 07/04/2024 8:19 PM BUNDLE BREAKER CNFL Bilirubin, Total, P 0.4 0.0 - 1.2 mg/dL 07/04/2024 8:19 PM BUNDLE BREAKER CNFL Blood (Blood, Venous) 07/04/2024 7:55 PM BUNDLE BREAKER 07/04/2024 8:00 PM BUNDLE BREAKER us Eliceo Garcia P.A.-C. LAB BLOOD ADD-ON Final R esult [facility] [place] [address], [facility] [place] [address] * (ABNORMAL) CBC with Differential, Blood (07/04/2024 7:55 PM BUNDLE BREAKER) Hemoglobin 13.1(L) 13.2 - 16.6 g/dL 07/04/2024 8:05 PM BUNDLE BREAKER CNFL Hematocrit 39.8 38.3 - 48.6 % 07/04/2024 8:05 PM BUNDLE BREAKER CNFL Erythrocytes 4.42 4.35 - 5.65 x10(12)/L 07/04/2024 8:05 PM BUNDLE BREAKER CNFL MCV 90.0 78.2 - 97.9 fL 07/04/2024 8:05 PM BUNDLE BREAKER CNFL RBC Distrib Width 12.1 11.8 - 14.5 % 07/04/2024 8:05 PM BUNDLE BREAKER CNFL Platelet Count 225 135 - 317 x10(9)/L 07/04/2024 8:05 PM BUNDLE BREAKER CNFL Leukocytes 7.8 3.4 - 9.6 x10(9)/L 07/04/2024 8:05 PM BUNDLE BREAKER CNFL Neutrophils 5.93 1.56 - 6.45 x10(9)/L 07/04/2024 8:05 PM BUNDLE BREAKER CNFL Lymphocytes 1.10 0.95 - 3.07 x10(9)/L 07/04/2024 8:05 PM BUNDLE BREAKER CNFL Monocytes 0.68 0.26 - 0.81 x10(9)/L 07/04/2024 8:05 PM BUNDLE BREAKER CNFL Eosinophils 0.08 0.03 - 0.48 x10(9)/L 07/04/2024 8:05 PM BUNDLE BREAKER CNFL Basophils <0.04 0.01 - 0.08 x10(9)/L 07/04/2024 8:05 PM BUNDLE BREAKER CNFL Blood (Blood, Venous) 07/04/2024 7:55 PM BUNDLE BREAKER 07/04/2024 8:00 PM BUNDLE BREAKER us Eliceo Garcia P.A.-C. LAB BLOOD ADD-ON Final R esult [facility] [address] [place] [address], [place] [address] * ECG 12 Lead (07/04/2024 7:37 PM BUNDLE BREAKER) Ventricular Rate ECG/Min 73 BPM MUSE SC Interval 162 ms MUSE QRSD Interval 94 ms MUSE QT Interval 376 ms MUSE QTC Interval 414 ms MUSE P Leonidas 77 degrees MUSE R Leonidas 58 degrees MUSE T Wave Leonidas 71 degrees MUSE 07/04/2024 7:37 PM BUNDLE BREAKER 07/04/2024 7:51 PM BUNDLE BREAKER Impressions MUSE - 07/04/2024 7:41 PM BUNDLE BREAKER Normal sinus rhythm When compared with ECG [...] Primary documented in this encounter Care Teams Manager Intensive Care Unit Relationship Specialty Start Date End Date Diane Riggs M.D. [phone] [place] [phone] PCP - General 11/10/23 documented as of this encounter
--- OUTSIDE RECORDS SUMMARY | 2024-07-04 23:41 | XMS_ITS | Encounter Summary ---
Author Organization [facility] Address [address] [place] [address] Care Team Providers Care Shredded Filler Cigar Maker Machine Name Role Phone Diane Riggs M.D. Primary Care Provider +1- [phone] Reason for Visit * Reason Onset Date Comments PandaDoc Form 05/30/2024 [facility] Encounter Details Date Type Department Care Team (Latest Contact Info) Description 05/30/2024 Clinical Communication Department of Family Medicine, [facility], in [address] [phone] Diane Riggs M.D. [address] [place] [address] [phone] PandaDoc Form ([facility]) [...] AM CDT Legal Sex Male 6:00 PM INSPECTOR OUTSIDE PRODUCTION Gender Identity Male 11/07/2017 10:07 AM CDT Sexual Orientation Straight 11/07/2017 10 :07 AM CDT documented as of this encounter Miscellaneous Notes * Telephone Encounter - Kori Evans - 06/05/2024 8:56 AM CST Form faxed back to facility and sent for scanning. [employer] * Telephone Encounter - Kori Evans - 05/30/2024 9:15 AM CST Form was routed to Dr. Riggs for electronic review/signature. CHIEF GREEN OFFICER: [employer] PHONE NUMBER: [phone] INFO REQUESTED: [facility] INSTRUCTIONS: Fax information to [phone] [employer] documented in this encounter Plan of Treatment Not on file documented as of this encounter Visit Diagnoses Not on filedocumented in this encounter Care Teams Shredded Filler Cigar Maker Machine Relationship Specialty Start Date End Date Diane Riggs M.D. [address] [place] [phone] PCP - General 11/10/23 documented as of this encounter
--- OUTSIDE RECORDS SUMMARY | 2024-07-04 23:41 | XMS_ITS | Encounter Summary ---
Author Organization [facility] Address [address] [place] [address] Care Team Providers Care Child Care Aide Name Role Phone Diane Riggs M.D. Primary Care Provider +1- [phone] Reason for Referral * MRI/CAT/PET Scan (Routine) - Authorized Specialty Diagnoses / Procedures Referred By Contac t Referred To Contact Radiology Diagnoses Subdural Hematoma Nontraumatic (HCC) Procedures CT Head without IV Contrast Diane Riggs M.D. [address] [place] [phone] Phone: tel: fax: [facility] Referral ID Status Reason Start Date Expiration Date V isits Requested Visits Authorized [id number] Authorized 07/02/2024 07/02/2025 1 1 E ERECTOR * Outpatient (Routine) - Authorized Specialty Diagnoses / Procedures Referred By Michelle t Referred To Contact Neurological Surgery Diagnoses Subdural Hematoma Nontraumatic (HCC) Diane Riggs M.D. [address] [place] [phone] Phone: tel: fax: [facility] Referral ID Status Reason Start Date Expiration Date V isits Requested Visits Authorized [id number] Authorized 07/02/2024 01/01/2026 1 1 E ERECTOR Reason for Visit * Reason Comments Post Hosp- NF 06/16/24 Needs Neuro refer ral to [place].Big fall in Mar, hit back of head [...] Expiration Date Visits Re quested Visits Authorized [id number] Closed 06/18/2024 06/18/2025 1 1 Encounter Details Date Type Department Care Team (Latest Contact Info) Description 07/02/2024 11:30 AM FENCE ERECTOR Office Visit Department of Family Medicine, [facility], in [address] [phone] Diane Riggs M.D. [address] [place] [phone] Hemorrhage Subdural Trauma Without Loss Of Consciousness [...] drink = 0.6 oz pur e alcohol) [facility] Utilities Answer Date Recorded In the past 12 months has e [employer], gas, oil, or water company threatened to [...] your living situation today? I have a [facility] place to live 07/02/2024 Sex and Gender Information Value Date Recorded Sex Assigned at Male 11/07/2017 10:07 AM CDT Legal Sex Male 6:00 PM FENCE ERECTOR Gender Identity Male 11/07/2017 10:07 AM CDT Sexual Orientation Straight 11/07/2017 10 :07 AM CDT documented as of this encounter Last Filed Vital Signs Vital Sign Reading Time Taken Comments Blood Pressure 136/82 07/02/2024 11:21 AM FENCE ERECTOR Pulse 81 07/02/2024 11:21 AM FENCE ERECTOR Temperature - - Respiratory Rate 16 07/02/2024 11:2 1 AM FENCE ERECTOR Oxygen Saturation - - Inhaled Oxygen Concentration - - Weight 66.2 kg (145 lb 15.1 oz) 025 11:21 AM FENCE ERECTOR Height 174.5 cm (5' 8.7) 07/02/2024 11 :21 AM FENCE ERECTOR Body Mass Index 21.74 07/02/2024 11:21 AM FENCE ERECTOR documented in this encounter Progress Notes * Diane Riggs M.D. - 07/02/2024 11:30 AM CST SUBJECTIVE REASON FOR VISIT Post Hosp- NF 06/16/24 (Needs Neuro referral to [place]./Big fall in Mar, hit back of head [...] for above concern. Patient presented to the [facility] ER on 06/16 following a neurological episode. [...] not sustain any head injuries. In the [place] ED, head CT scan was obtained which [...] 3 months. CBC ordered. Diane Riggs M.D. E ERECTOR documented in this encounter Plan of Treatment [...] Return documented in this encounter Care Teams Child Care Aide Relationship Specialty Start Date End Date Diane Riggs M.D. [id number] [phone] PCP - General 11/10/23 documented as of this encounter
[2024-07-04 23:45] VITALS: PULSE 46; O2SAT 66
[2024-07-04 23:51] VITALS: BP 159/114
[2024-07-04 23:55] LABS: Chloride* 103 mmol/L (96-114)
[2024-07-04 23:56] LABS: Potassium* 3.8 mmol/L (3.6-5.1); Sodium* 139 mmol/L (135-149)
[2024-07-04 23:58] LABS: Bilirubin Total* 1.1 mg/dL (0.1-1.5); Creatinine* 1.4 mg/dL (0.5-1.5); Estimated Glomerular Filt Rate 50 ml/min; Lactate Sepsis w/Reflex* 7.6 mmol/L (0.5-1.9)
[2024-07-04 23:59] LABS: Alanine Aminotransferase* 21 U/L (4-50); Alkaline Phosphatase* 72 U/L (40-150); Anion Gap 13 mEq/L (7-15); Aspartate Amino Transferase* 38 U/L (12-35); Blood Urea Nitrogen* 23 mg/dL (7-30); Carbon Dioxide* 23 mmol/L (20-32); Glucose* 141 mg/dL (60-115); Total Protein* 6.2 g/dL (6.0-8.3)
[2024-07-05] VITALS (52 sets, daily range): BP systolic 61–143; BP diastolic 33–118; PULSE 48–157; RESP 20; TEMP 36.8–38.8; O2SAT 71–99
[2024-07-05 00:01] LABS: PCR FLU A Negative PCR FLU A (Negative); PCR FLU B Negative PCR FLU B (Negative); PCR RSV Negative PCR RSV (Negative); SARS PCR* Negative SARS-CoV-2 (Negative)
[2024-07-05 00:02] LABS: C Reactive Protein* 0.5 mg/dL (0.5-1.0)
[2024-07-05] MEDS: 0.9 % SODIUM CHLORIDE 1000 ml 1,000 ML 500 ML IV ×2 (00:02→01:38)
--- NOTE | 2024-07-05 00:29 | CRLHL7_ITS ---
For Patients: As a result of the 21st Century Cures Act, medical imaging exams and procedure reports are released immediately into your electronic medical record. You may view this report before your referring provider. If you have questions, please contact your health care provider. INDICATION: Hematuria, sepsis, history of prostate cancer. TECHNIQUE: CT abdomen and pelvis acquired with 71 cc Isovue 370 IV contrast. COMPARISON: None. FINDINGS: Limited evaluation secondary to motion artifact. Lower chest: Scattered atelectasis. Small hiatal hernia. Liver: Unremarkable. Normal in size and attenuation. No suspicious masses. Gallbladder and bile ducts: Unremarkable. No stones or inflammation. No biliary dilatation. Pancreas: Unremarkable. No mass or inflammation. Spleen: Unremarkable. Normal in size. No masses. Adrenal glands: Unremarkable. No nodules. Kidneys: Tiny cortical hypodensities, too small to characterize. No suspicious masses, stones, or hydronephrosis. GI tract: Limited evaluation secondary to motion artifact. Normal in caliber. No sign of mass or inflammation. Appendix not definitely seen, however no right lower quadrant inflammatory stranding. Vasculature: Aortoiliac arterial calcifications. Abdominal aorta is normal in caliber. Mesenteric arteries are patent. Lymph nodes: No lymphadenopathy. Peritoneum/Abdominal Wall: Unremarkable. No sign of mass or infiltration. No free air or significant free fluid. Pelvis: Postsurgical changes about the prostate gland. Moderately distended bladder with circumferential wall thickening. Bones: Degenerative changes. IMPRESSION: Limited evaluation secondary to motion artifact. Moderately distended bladder with circumferential wall thickening. Differential includes post treatment changes (in this patient with history of treated prostate cancer) for cystitis. Recommend correlation with urinalysis. If symptomatology persists, consider cystoscopy to exclude infiltrative mass. Otherwise, no acute intra-abdominal/pelvic abnormality on this motion degraded study. Please note that all CT scans at this facility use dose modulation, iterative reconstruction, and/or weight-based dosing when appropriate to reduce radiation dose to as low as reasonably achievable. Dictated by Derrick Epperson MD @ 07/05/2024 1:18:40 AM (Electronically Signed)
[2024-07-05] MEDS: PIPERACILLIN/TAZOBACTAM 3.375 GM in 0.9 % SODIUM CHLORIDE Mini-bag 100 ML IVPB (00:37)
[2024-07-05 01:11] LABS: PSA Diagnostic* < 0.06 ng/mL (0.10-4.00)
[2024-07-05 01:34] LABS: Appearance Urine Cloudy (Clear); Bilirubin Urine Negative (Negative); Blood Urine 2+ (Negative); Color Urine Yellow (Yellow); Glucose Urine Negative (Negative); Ketones Urine Negative (Negative); Leukocyte Esterase Urine 1+ (Negative); Nitrite Urine Negative (Negative); Protein Urine 1+ (Negative); Specific Gravity Urine 1.015 (1.000-1.030); Urobilinogen Urine 0.2 (0.2-1.0)
[2024-07-05 01:38] LABS: Lactate Sepsis 2 Hour 8.7 mmol/L (0.5-1.9)
[2024-07-05] MEDS: VANCOMYCIN 1.25 GM/250 ML 1.25 GM/250 ML PIGGYBACK IVPB (01:39)
[2024-07-05 01:41] LABS: Troponin, Point-of-Care* 0.09 ng/ml (0.01-0.04)
[2024-07-05 01:43] LABS: Bacteria Urine Many; Squamous Epithelial Cell Urine Few (None-Few)
[2024-07-05 02:03] LABS: D Dimer Quantitative* 19.44 ug/ml (0.00-0.50)
[2024-07-05 02:04] LABS: NT Pro B Type NatriureticPept* 625 pg/mL
--- NOTE | 2024-07-05 02:12 | CRLHL7_ITS ---
For Patients: As a result of the Century Cures Act, medical imaging exams and procedure reports are released immediately into your electronic medical record. You may view this report before your referring provider. If you have questions, please contact your health care provider. Indication: Elevated D-dimer, history of prostate cancer Technique: CTA of the chest following 95 mL Isovue 370 IV contrast. Comparison: None Findings: Pulmonary arteries: No pulmonary embolism appreciated. Lungs: No consolidation. No effusion. No pneumothorax. Mediastinum: No acute abnormality appreciated. Calcified coronary arterial and aortic atherosclerosis. Lymph nodes: No gross lymphadenopathy. Upper abdomen: Better assessed on same day CT abdomen and pelvis. Soft tissues: No acute abnormality appreciated. Bones: No acute abnormality appreciated. Degenerative changes of the spine and shoulders. Impression: No acute abnormality appreciated. Please note that all CT scans at this facility use dose modulation, iterative reconstruction, and/or weight-based dosing when appropriate to reduce radiation dose to as low as reasonably achievable. Dictated by Nirav Hernandez MD @ 07/05/2024 2:57:35 AM (Electronically Signed)
[2024-07-05] MEDS: ACETAMINOPHEN INJ 1,000 MG/100 ML VIAL 400 MG IVPB (03:08)
[2024-07-05 03:32] LABS: Lactate* 4.9 mmol/L (0.5-1.9)
[2024-07-05 03:45] LABS: Chloride* 105 mmol/L (96-114); Sodium* 135 mmol/L (135-149)
[2024-07-05 03:46] LABS: Potassium* 3.9 mmol/L (3.6-5.1)
[2024-07-05 03:48] LABS: Anion Gap 7 mEq/L (7-15); Carbon Dioxide* 23 mmol/L (20-32); Creatinine* 1.5 mg/dL (0.5-1.5); Estimated Glomerular Filt Rate 46 ml/min
[2024-07-05 03:49] LABS: Blood Urea Nitrogen* 26 mg/dL (7-30); Calcium* 7.6 mg/dL (8.4-10.6); Glucose* 85 mg/dL (60-115); Magnesium* 1.9 mg/dL (1.5-2.6)
[2024-07-05] MEDS: LORazepam 2 MG/ML inj 0.3 MG IVP (04:37)
[2024-07-05] MEDS: 0.9 % SODIUM CHLORIDE 1000 ml 1,000 ML 125 ML IV (04:52)
--- NOTE | 2024-07-05 17:39 | PM.IMHP1 ---
Hospitalist- H&P: HPI History of Present Illness Date Seen: 07/05/24 Chief complaint: stroke like symptoms Narrative: Jose Alberto Amado is a 84 year old male pt w/ pmhx of cognitive impairment, b/l subdural hematomas and hx of prostate cancer who presents to ED w/ AMS and weakness. At the ED, pt was hypotensive, hypoxic on 15 L non-rebreather mask, altered. White blood cell count found to be 1.1, this is down from 7.8 at his earlier emergency department evaluation. Lactate of 7.8. Creatinine 1.4, this was seen to be 0.97 at a recent visit. D-dimer significantly elevated at 19.4 for, (CT PE -ve). CTH, CT chest , CT abdomen & pelvis were done. EKG shows patient to be in a complete heart block. Pt is found to be critically ill w/ bad prognosis, frailty. At the ED, goals of care were discussed with his son who agreed on comfort cares as his father was in the process of actively dying. Pt admitted for comfort care. 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 (ICD-10) Cognitive impairment ?R41.89 - Other symptoms and signs involving cognitive functions and awareness (ICD-10) Bilateral subdural hematomas ?S06.5XAA - Traumatic subdural hemorrhage with loss of consciousness status unknown, initial encounter (ICD-10) Vitamin D deficiency ?E55.9 - Vitamin D deficiency, unspecified (ICD-10) Prostate cancer ?C61 - Malignant neoplasm of prostate (ICD-10) Surgical History H/O colonoscopy ?Z98.890 - Other specified postprocedural states (ICD-10) Hx of prostate biopsy ?Z98.890 - Other specified postprocedural states (ICD-10) Social History Narrative: Retired, worked for the [employer]. Lives independently with Precious. Nonsmoker, no ETOH. Unsure about code status, definitely does not desire nursing home intubation. What is your current living situation?: I presently have a place to live Problems where you live: no known problems Problems where you live details: n/a In the past 12 months, utilities in danger of being shut off: no In past 12 months, lack of transportation kept you from medical appts, meetings, work, or getting things needed for daily living: no In the past 12 mos, have been you worried that your food would run out before you had money to buy more?: never true In the past 12 mos, the food you bought just didn't last and you didn't have money to buy more?: never true Smoking Status: Never smoker How often do you have a drink containing alcohol: never AUDIT-C Alcohol total score: 0 Non-prescribed substance use: denies use How often does anyone, including family, friends and others, physically hurt you: never How often does anyone, including family, friends and others, insult or talk down to you: never How often does anyone, including family, friends and others, threaten you with harm: never How often does anyone, including family, friends and others, scream or curse at you: never service: No Meds Home Medications and Allergies Home Medications ?Medication ?Instructions ?Recorded ?Confirmed ?Type cefdinir 300 mg capsule 300 mg PO BID 07/05/24 07/05/24 History Allergies Allergy/AdvReac Type Severity Reaction Status Date / Time No Known Drug Allergies Allergy Verified 07/05/24 01:07 Exam Narrative: Exam Narrative: Physical exam GENERAL: Frail elderly, actively dying. CARDIOVASCULAR: Bradycardic RESPIRATORY: Tachypneic NEUROLOGY: Altered mental status Const: Vital Signs, click to edit/add: Vital Signs - 24 hr 07/04/24 23:01 07/04/24 23:35 07/04/24 23:39 Temperature 96.3 F L Pulse Rate 45 L Pulse Rate [Pulse Oximeter] 78 Respiratory Rate 32 H 42 H Blood Pressure Blood Pressure [Le ft Upper Arm] 99/54 L Pulse Oximetry 70 L 67 L Oxygen Delivery Me thod Non Rebreather Mas k Non Rebreather Mas k Oxygen Flow Rate 15 Fraction of Inspir ed Oxygen 07/04/24 23:45 07/04/24 23:51 07/05/24 00:00 Temperature Pulse Rate 46 L 157 H Pulse Rate [Pulse Oximeter] Respiratory Rate Blood Pressure 159/114 H Blood Pressure [Le ft Upper Arm] Pulse Oximetry 66 L 87 L Oxygen Delivery Me thod Non Rebreather Mas k Non Rebreather Mas k Non Rebreather Mas k Oxygen Flow Rate 15 15 15 Fraction of Inspir ed Oxygen 07/05/24 00:06 07/05/24 00:15 07/05/24 00:18 Temperature Pulse Rate 73 68 67 Pulse Rate [Pulse Oximeter] Respiratory Rate Blood Pressure 143/118 H Blood Pressure [Le ft Upper Arm] Pulse Oximetry 87 L 83 L 81 L Oxygen Delivery Me thod Non Rebreather Mas k Non Rebreather Mas k Non Rebreather Mas k Oxygen Flow Rate 15 15 15 Fraction of Inspir ed Oxygen 07/05/24 00:30 07/05/24 00:45 07/05/24 01:06 Temperature Pulse Rate 66 65 Pulse Rate [Pulse Oximeter] Respiratory Rate Blood Pressure Blood Pressure [Le ft Upper Arm] Pulse Oximetry 96 91 Oxygen Delivery Me thod High Flow Nasal Ca nnula High Flow Nasal Ca nnula High Flow Nasal Ca nnula Oxygen Flow Rate 30 30 30 Fraction of Inspir ed Oxygen 40 40 40 07/05/24 01:10 07/05/24 01:18 07/05/24 01:30 Temperature Pulse Rate 67 69 63 Pulse Rate [Pulse Oximeter] Respiratory Rate Blood Pressure 113/87 101/64 Blood Pressure [Le ft Upper Arm] Pulse Oximetry 95 91 96 Oxygen Delivery Me thod High Flow Nasal Ca nnula High Flow Nasal Ca nnula Oxygen Flow Rate 30 30 Fraction of Inspir ed Oxygen 45 45 07/05/24 01:32 07/05/24 01:36 07/05/24 01:53 Temperature Pulse Rate 56 L 59 L 58 L Pulse Rate [Pulse Oximeter] Respiratory Rate 20 Blood Pressure 123/104 H 120/81 120/101 H Blood Pressure [Le ft Upper Arm] Pulse Oximetry 95 95 96 Oxygen Delivery Me thod High Flow Nasal Ca nnula High Flow Nasal Ca nnula High Flow Nasal Ca nnula Oxygen Flow Rate 30 30 30 Fraction of Inspir ed Oxygen 45 45 45 07/05/24 02:00 07/05/24 02:15 07/05/24 02:18 Temperature 101.8 F H Pulse Rate 58 L 57 L 57 L Pulse Rate [Pulse Oximeter] Respiratory Rate Blood Pressure 140/117 H Blood Pressure [Le ft Upper Arm] Pulse Oximetry 96 96 96 Oxygen Delivery Me thod High Flow Nasal Ca nnula Oxygen Flow Rate 30 Fraction of Inspir ed Oxygen 45 07/05/24 03:00 07/05/24 03:08 07/05/24 03:12 Temperature 101.8 F H Pulse Rate 52 L 51 L Pulse Rate [Pulse Oximeter] Respiratory Rate Blood Pressure 117/100 H Blood Pressure [Le ft Upper Arm] Pulse Oximetry 82 L 78 L Oxygen Delivery Me thod High Flow Nasal Ca nnula High Flow Nasal Ca nnula Oxygen Flow Rate 40 40 Fraction of Inspir ed Oxygen 100 100 07/05/24 03:15 07/05/24 03:17 07/05/24 03:22 Temperature Pulse Rate 51 L 50 L 49 L Pulse Rate [Pulse Oximeter] Respiratory Rate Blood Pressure 75/40 L 89/40 L Blood Pressure [Le ft Upper Arm] Pulse Oximetry 75 L 76 L 71 L Oxygen Delivery Me thod High Flow Nasal Ca nnula High Flow Nasal Ca nnula High Flow Nasal Ca nnula Oxygen Flow Rate 40 40 40 Fraction of Inspir ed Oxygen 100 100 100 07/05/24 03:23 07/05/24 03:30 07/05/24 03:31 Temperature Pulse Rate 50 L 51 L 50 L Pulse Rate [Pulse Oximeter] Respiratory Rate Blood Pressure 75/40 L Blood Pressure [Le ft Upper Arm] Pulse Oximetry 71 L 86 L 84 L Oxygen Delivery Me thod High Flow Nasal Ca nnula High Flow Nasal Ca nnula Oxygen Flow Rate 40 40 Fraction of Inspir ed Oxygen 100 100 07/05/24 03:45 07/05/24 03:47 07/05/24 04:00 Temperature Pulse Rate 49 L 49 L 49 L Pulse Rate [Pulse Oximeter] Respiratory Rate Blood Pressure 61/38 L Blood Pressure [Le ft Upper Arm] Pulse Oximetry 86 L 88 97 Oxygen Delivery Me thod High Flow Nasal Ca nnula Oxygen Flow Rate 40 40 40 Fraction of Inspir ed Oxygen 100 100 100 07/05/24 04:01 07/05/24 04:02 07/05/24 04:15 Temperature Pulse Rate 50 L 48 L Pulse Rate [Pulse Oximeter] Respiratory Rate Blood Pressure 75/42 L Blood Pressure [Le ft Upper Arm] Pulse Oximetry 97 87 L Oxygen Delivery Me thod Oxygen Flow Rate 40 40 Fraction of Inspir ed Oxygen 100 100 100 07/05/24 04:17 07/05/24 04:18 07/05/24 04:30 Temperature Pulse Rate 48 L 49 L Pulse Rate [Pulse Oximeter] Respiratory Rate Blood Pressure 79/33 L Blood Pressure [Le ft Upper Arm] Pulse Oximetry 87 L 96 Oxygen Delivery Me thod High Flow Nasal Ca nnula High Flow Nasal Ca nnula Oxygen Flow Rate 40 40 Fraction of Inspir ed Oxygen 100 100 100 07/05/24 04:32 07/05/24 04:45 07/05/24 04:47 Temperature Pulse Rate 49 L 60 59 L Pulse Rate [Pulse Oximeter] Respiratory Rate Blood Pressure 113/72 97/77 Blood Pressure [Le ft Upper Arm] Pulse Oximetry 98 97 99 Oxygen Delivery Me thod High Flow Nasal Ca nnula High Flow Nasal Ca nnula High Flow Nasal Ca nnula Oxygen Flow Rate 40 40 40 Fraction of Inspir ed Oxygen 100 100 100 07/05/24 04:48 07/05/24 04:56 07/05/24 05:00 Temperature 98.2 F Pulse Rate 59 L 59 L Pulse Rate [Pulse Oximeter] Respiratory Rate Blood Pressure Blood Pressure [Le ft Upper Arm] Pulse Oximetry 98 96 Oxygen Delivery Me thod High Flow Nasal Ca nnula High Flow Nasal Ca nnula Oxygen Flow Rate 40 40 Fraction of Inspir ed Oxygen 100 100 07/05/24 05:02 07/05/24 05:15 07/05/24 05:16 Temperature Pulse Rate 59 L 59 L 59 L Pulse Rate [Pulse Oximeter] Respiratory Rate Blood Pressure 76/37 L 70/36 L Blood Pressure [Le ft Upper Arm] Pulse Oximetry 97 97 96 Oxygen Delivery Me thod High Flow Nasal Ca nnula High Flow Nasal Ca nnula High Flow Nasal Ca nnula Oxygen Flow Rate 40 40 40 Fraction of Inspir ed Oxygen 100 100 100 07/05/24 05:30 07/05/24 05:32 07/05/24 05:45 Temperature Pulse Rate 59 L 59 L 59 L Pulse Rate [Pulse Oximeter] Respiratory Rate Blood Pressure 69/36 L Blood Pressure [Le ft Upper Arm] Pulse Oximetry 96 95 97 Oxygen Delivery Me thod High Flow Nasal Ca nnula High Flow Nasal Ca nnula High Flow Nasal Ca nnula Oxygen Flow Rate 40 40 40 Fraction of Inspir ed Oxygen 100 100 100 07/05/24 05:47 07/05/24 06:00 07/05/24 06:02 Temperature Pulse Rate 59 L 59 L 59 L Pulse Rate [Pulse Oximeter] Respiratory Rate Blood Pressure 77/38 L 84/41 L Blood Pressure [Le ft Upper Arm] Pulse Oximetry 97 96 96 Oxygen Delivery Me thod Oxygen Flow Rate Fraction of Inspir ed Oxygen 07/05/24 06:10 07/05/24 06:16 07/05/24 06:31 Temperature Pulse Rate 59 L 58 L Pulse Rate [Pulse Oximeter] Respiratory Rate Blood Pressure 76/38 L 70/39 L Blood Pressure [Le ft Upper Arm] Pulse Oximetry 97 98 Oxygen Delivery Me thod High Flow Nasal Ca nnula High Flow Nasal Ca nnula Oxygen Flow Rate 40 40 Fraction of Inspir ed Oxygen 100 100 100 07/05/24 06:47 07/05/24 12:18 Temperature Pulse Rate 58 L Pulse Rate [Pulse Oximeter] Respiratory Rate Blood Pressure 72/37 L Blood Pressure [Le ft Upper Arm] Pulse Oximetry 97 Oxygen Delivery Me thod High Flow Nasal Ca nnula Oxygen Flow Rate 40 40 Fraction of Inspir ed Oxygen 100 100 Hospitalist - H&P: Result Labs Labs: Short CBC 07/04/24 Range/Units 23:15 WBC 1.11 L* (4.50-11.00) K/uL Hgb 13.0 L (13.5-17.5) gm/dL Hct 40.2 (37.0-53.0) % Plt Count 193 (140-440) K/uL BMP 07/04/24 07/05/24 23:15 03:25 Sodium 139 135 Potassium 3.8 3.9 Chloride 103 105 Carbon Dioxide 23 23 BUN 23 26 Creatinine 1.4 1.5 Glucose 141 H 85 Calcium 9.0 7.6 L Liver Function 07/04/24 Range/Units 23:15 Total Bilirubin 1.1 (0.1-1.5) mg/dL AST 38 H (12-35) U/L ALT 21 (4-50) U/L Alkaline Phosphatase 72 (40-150) U/L Albumin 4.0 (3.3-5.0) g/dL Urine 07/05/24 Range/Units 01:20 Urine Color Yellow (Yellow) Urine Appearance Cloudy A (Clear) Urine pH 7.0 (5.0-8.5) Ur Specific [place] 1.015 (1.000-1.030) Urine Protein 1+ A (Negative) Urine Glucose (UA) Negative (Negative) ECG Attestation: I personally reviewed and interpreted this ECG as follows: ECG interpretation date: 07/05/24 Interpretation: Wide QRS, PVCs Imaging CT Chest/Ab/Pelvis: Radiologist's impression: TECHNIQUE: CT abdomen and pelvis acquired with 71 cc Isovue 370 IV contrast. COMPARISON: None. FINDINGS: Limited evaluation secondary to motion artifact. Lower chest: Scattered atelectasis. Small hiatal hernia. Liver: Unremarkable. Normal in size and attenuation. No suspicious masses. Gallbladder and bile ducts: Unremarkable. No stones or inflammation. No biliary dilatation. Pancreas: Unremarkable. No mass or inflammation. Spleen: Unremarkable. Normal in size. No masses. Adrenal glands: Unremarkable. No nodules. Kidneys: Tiny cortical hypodensities, too small to characterize. No suspicious masses, stones, or hydronephrosis. GI tract: Limited evaluation secondary to motion artifact. Normal in caliber. No sign of mass or inflammation. Appendix not definitely seen, however no right lower quadrant inflammatory stranding. Vasculature: Aortoiliac arterial calcifications. Abdominal aorta is normal in caliber. Mesenteric arteries are patent. Lymph nodes: No lymphadenopathy. Peritoneum/Abdominal Wall: Unremarkable. No sign of mass or infiltration. No free air or significant free fluid. Pelvis: Postsurgical changes about the prostate gland. Moderately distended bladder with circumferential wall thickening. Bones: Degenerative changes. IMPRESSION: Limited evaluation secondary to motion artifact. Moderately distended bladder with circumferential wall thickening. Differential includes post treatment changes (in this patient with history of treated prostate cancer) for cystitis. Recommend correlation with urinalysis. If symptomatology persists, consider cystoscopy to exclude infiltrative mass. Otherwise, no acute intra-abdominal/pelvic abnormality on this motion degraded study. Please note that all CT scans at this facility use dose modulation, iterative reconstruction, and/or weight-based dosing when appropriate to reduce radiation dose to as low as reasonably achievable. Dictated by Derrick Epperson MD @ 07/05/2024 1:18:[address] scan - head: Radiologist's impression: TECHNIQUE: CT head without contrast. COMPARISON: 06/16/2024. FINDINGS: Decreased size of the bilateral subdural hematomas. No new acute intracranial hemorrhage. Mild generalized cerebral volume loss. 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 Crocker-white differentiation is maintained. Patchy white matter low attenuation changes, nonspecific but likely reflecting chronic small vessel ischemic disease. No midline shift. The visualized paranasal sinuses and mastoid air cells demonstrate no acute or significant findings. The visualized orbits are grossly unremarkable. No skull fractures. IMPRESSION: 1. No acute intracranial hemorrhage or midline shift. 2. Decreased size of the bilateral subdural hematomas. Please note that all CT scans at this facility use dose modulation, iterative reconstruction, and/or weight-based dosing when appropriate to reduce radiation dose to as low as reasonably achievable. Dictated by Steve Marquez MD @ 07/04/2024 11:15:57 PM (Electronically Signed) Assessment and Plan Assessment and plan (1) Comfort measures only status: Problem comment: -Severe sepsis , likely 2/2 infection (UTI) causing multiorgan failure: Acute hypoxemic respiratory failure, EDNA, acute neutropenia, in addition to Complete heart block. -Pt is found to be critically ill w/ bad prognosis, frailty. At the ED, goals of care were discussed with his son who agreed on comfort cares as his father was in the process of actively dying. -D/C HFNC, DC IV Abx -ordered comfort care measures. Status: Acute (2) Altered mental status: Status: Acute (3) Septic shock: Status: Acute (4) Acute hypoxemic respiratory failure: Status: Acute (5) Complete heart block: Status: Acute (6) EDNA (acute kidney injury): Status: Acute (7) Neutropenia: Status: Acute (8) Acute urinary tract infection: Status: Acute (9) Bilateral subdural hematomas: Problem comment: Chronic and/or acute and chronic. Conservative management at this time. Outpatient follow-up with [facility]. Status: Acute (10) Prostate cancer: Problem comment: - 2014: diagnosed with PSA 15.7, [place] 4+3 - treated with radiation/Androgen deprivation - 2018: PSA rising and MRI exhibited recurrence, treated with Cryoablation Status: Acute (11) Cognitive impairment: Problem comment: [place] on 06/17/2024 Status: Acute Total Time Spent Total Time Spent: Time spent: Today I spent 75 minutes seeing the patient, discussing the patient with ER staff, reviewing Expanse and EPIC notes/diagnostics, discussing the care plan with our care time that includes social work, PT/OT, pharmacy, RT, alf and documenting my impressions and plan in the medical record.
[2024-07-05] MEDS: MORPHINE 2 MG/ML inj IVP (18:14)
[2024-07-05] MEDS: MORPHINE 2 MG/ML inj 4 MG IVP ×2 (19:45→21:38)
[2024-07-06] MEDS: MORPHINE 2 MG/ML inj 4 MG IVP ×4 (02:43→23:00)
--- NOTE | 2024-07-06 03:36 | PC.NURSE ---
Comfort care protocol. Family is at the bedside throughout the shift, IV morphine for respiratory/ pain management. Maldonado is patent and draining. Mona cares and oral cares were provided throughout the shift. Call light within reach, the family is aware of the call button and to let us know of any questions/concerns. Some Alvino ng breathing was noted up arrival to the floor, although not seen later. Jessie TILLMAN BSN
[2024-07-06 13:00] VITALS: TEMP 38.6
[2024-07-06] MEDS: ACETAMINOPHEN 650 MG SUPP PR ×2 (13:00→20:19)
[2024-07-06 15:07] VITALS: TEMP 37
--- NOTE | 2024-07-06 15:13 | P.IMPN_ITS ---
Progress Note: A&P Assessment and plan (1) Comfort measures only status: Problem details: -Severe sepsis , likely 2/2 infection (UTI) causing multiorgan failure: Acute hypoxemic respiratory failure, EDNA, acute neutropenia, in addition to Complete heart block. -Pt is found to be critically ill w/ bad prognosis, frailty. At the ED, goals of care were discussed with his son who agreed on comfort cares as his father was in the process of actively dying. -D/C HFNC, DC IV Abx -ordered comfort care measures. Status: Acute (2) Altered mental status: Status: Acute (3) Septic shock: Status: Acute (4) Acute hypoxemic respiratory failure: Status: Acute (5) Complete heart block: Status: Acute (6) EDNA (acute kidney injury): Status: Acute (7) Neutropenia: Status: Acute (8) Acute urinary tract infection: Status: Acute (9) Bilateral subdural hematomas: Problem details: Chronic and/or acute and chronic. Conservative management at this time. Outpatient follow-up with [facility]. Status: Acute (10) Prostate cancer: Problem details: - 2014: diagnosed with PSA 15.7, Jh 4+3 - treated with radiation/Androgen deprivation - 2018: PSA rising and MRI exhibited recurrence, treated with Cryoablation Status: Acute (11) Cognitive impairment: Problem details: [place] on 06/17/2024 Status: Acute Plan 1. Spoke with son who is in the room when I visit the patient. Answered his questions to satisfaction. 2. Continue with comfort focus measures only with DNR DNI resuscitation status. 3. Family continues to decline any additional disease directed diagnostic or interventional efforts. 4. Patient is gradually transitioning to imminently dying. Continue with supportive efforts for patient and family. Time Spent With Patient Total time spent: 20 minutes Subjective Date Seen: 07/06/24 Interval history: Hospital day 2, 07/06/2024. Patient is receiving terminal comfort care measures with DNR DNI resuscitation status. T-max today 101? F, with respiratory rate of 32 breaths per minute. For the most part is unresponsive. Family does report that he did open his eyes for a period of time and seem to be aware of his family members around him. Exam Narrative: Exam Narrative: Appears comfortable laying in bed. Eyes closed, mouth open, breathing at 28 breaths per minute. Forehead is warm to touch. Heart rate is diminished at 50 beats per minute with known heart block. Abdomen with active bowel sounds. Const: Vital Signs, click to edit/add: Vital Signs - 24 hr 07/06/24 13:00 07/06/24 15:07 Temperature 101.4 F H 98.6 F
--- NOTE | 2024-07-06 15:43 | PC.NURSE ---
Nursing Care Hours: [id number] Pt this shift unresponsive in bed. Tachypneic but non labored breathing. Bed bath given. Oral cares done during reposition periods. Maldonado cath patent and draining low amounts of ernestina urine. Pt appearing comfortable. No groaning or moaning or air gasping. Discussed IV pain meds holding them until pt gives signs of being uncomfortable. Pt family agreed. No morphine given this shift. Suppository Tylenol given for fever of 101.4, effective.
[2024-07-06] MEDS: LORazepam 2 MG/ML inj IVP (21:50)
[2024-07-07] MEDS: LORazepam 2 MG/ML inj IVP ×3 (00:24→05:07)
[2024-07-07] MEDS: MORPHINE 2 MG/ML inj 4 MG IVP ×3 (01:30→08:25)
--- NOTE | 2024-07-07 07:05 | PC.NURSE ---
(DOWNTIME [id number]) Pt unresponsive, in bed, appears to be resting comfortably. PRN morphine and Ativan given for pt comfort, see mar for administrations. Pt reposited throughout shift. Temperature monitored throughout shift, cold washcloths and Tylenol provided.? in bed with pt now, both appear to be comfortable. ?
[2024-07-07] MEDS: MORPHINE 10 MG/0.5 ML ORAL SOLN BUCCAL ×3 (13:21→16:57)
[2024-07-07] MEDS: HYOSCYAMINE SULFATE 0.125 MG TAB SUBLINGUAL (13:45)
--- NOTE | 2024-07-07 14:23 | P.IMPN_ITS ---
Progress Note: A&P Assessment and plan (1) Comfort measures only status: Problem details: -Severe sepsis , likely 2/2 infection (UTI) causing multiorgan failure: Acute hypoxemic respiratory failure, EDNA, acute neutropenia, in addition to Complete heart block. -Pt is found to be critically ill w/ bad prognosis, frailty. At the ED, goals of care were discussed with his son who agreed on comfort cares as his father was in the process of actively dying. -D/C HFNC, DC IV Abx -ordered comfort care measures. Status: Acute (2) Altered mental status: Problem details: -asleep 24 hours daily now. No response to verbal or tactile stimuli. 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 Conservative management at this time. Outpatient follow-up with [facility]. Status: Acute (10) Prostate cancer: Problem details: - 2014: diagnosed with PSA 15.7, [place] 4+3 - treated with radiation/Androgen deprivation - 2018: PSA rising and MRI exhibited recurrence, treated with Cryoablation Status: Acute (11) Cognitive impairment: Problem details: [place] 22/30 on 06/17/2024 Status: Acute Plan 1. Spent time with patient, , son, daughter. Listened to them. Spoke with them. Assured them. Answered their questions to their satisfaction. 2. Patient family continue to express desire for comfort focus measures only with DNR DNI resuscitation status. 3. Continue with current plan of care. Added oral concentrate morphine solution and lorazepam p.r.n. Time Spent With Patient Total time spent: 30 minutes Subjective Date Seen: 07/07/24 Interval history: Hospital day 3, 07/07/2024. Bed-bound. Patient drowsy, sleeping 24 hours daily. No response to verbal or tactile stimuli. Minimal to no spontaneous movement. No oral intake with oral cares only. Visited with patient , son, daughter. Exam Narrative: Exam Narrative: Laying in bed. No spontaneous movement. PPS score 10%. No response to verbal or tactile stimuli. Drooping of nasal labial folds. Mouth is hanging open. Respiratory rate is decreased. Nonlabored breathing. No urine output now. Const: Vital Signs, click to edit/add: Vital Signs - 24 hr 07/06/24 15:07 Temperature 98.6 F
--- NOTE | 2024-07-07 19:02 | PC.NURSE ---
Nursing Care Hours: [id number] Discussed with family, use of IV pain and anxiety medications. Agreed to give if signs of discomfort noted and prior to each repositioning. Mid day, IV went bad aeb leaking and puffing during flush. Hospitalist ordered buccal morphine. [employer] Bath Attendant gave first dose toward back of cheek in two divided doses. Pt began coughing and breathing rate increased. PRN med to decrease secretions placed under the tongue. Morphine repeated next hour and Pt breathing slowed down to 17 RR, pt calm and periods of apnea noted. pt continues to be warm and moist, no mottling noted. Matrix Bath Attendant encouraged family to apply cool wash cloths to forehead and wipe down arms and face PRN for comfort. 50ml u/o for the whole shift from [place].
--- NOTE | 2024-07-08 07:33 | PC.NURSE ---
Shift note ([id number]): Patient continues to be unresponsive.?Appeared comfortable during the night. Repositioned q 2-3 hrs. Family present.?
[2024-07-08] MEDS: MORPHINE 10 MG/0.5 ML ORAL SOLN BUCCAL ×8 (07:56→17:39)
[2024-07-08] MEDS: HYOSCYAMINE SULFATE 0.125 MG TAB SUBLINGUAL ×3 (07:57→17:39)
[2024-07-08] MEDS: LORazepam 1 MG TABLET PO ×3 (10:24→14:20)
--- NOTE | 2024-07-08 15:53 | P.IMPN_ITS ---
Progress Note: A&P Assessment and plan (1) Comfort measures only status: Problem details: -Severe sepsis , likely 2/2 infection (UTI) causing multiorgan failure: Acute hypoxemic respiratory failure, EDNA, acute neutropenia, in addition to Complete heart block. -Pt is found to be critically ill w/ bad prognosis, frailty. At the ED, goals of care were discussed with his son who agreed on comfort cares as his father was in the process of actively dying. -D/C HFNC, DC IV Abx -ordered comfort care measures. - is imminent Status: Acute (2) Altered mental status: Problem details: -asleep 24 hours daily now. No response to verbal or tactile stimuli. 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 Conservative management at this time. Outpatient follow-up with [facility]. Status: Acute (10) Prostate cancer: Problem details: - 2014: diagnosed with PSA 15.7, [place] 4+3 - treated with radiation/Androgen deprivation - 2018: PSA rising and MRI exhibited recurrence, treated with Cryoablation Status: Acute (11) Cognitive impairment: Problem details: [place] 22/30 on 06/17/2024 Status: Acute Plan 1. Reviewed impression and plans with patient's , son, daughter 2. Answered their questions 3. Patient's appears imminent now and the concern about transporting him outside the hospital is that he is at very high risk of dying and route 4. They are agreeable with above stated plans and recommendations Time Spent With Patient Total time spent: 30 minutes Subjective Date Seen: 07/08/24 Interval history: Hospital day 4, 07/08/2024. Bed-bound. Patient unresponsive and comatose, sleeping 24 hours daily. No response to verbal or tactile stimuli. Minimal to no spontaneous movement. No oral intake with oral cares only. Visited with patient , son, daughter. Exam Narrative: Exam Narrative: Appears comfortable. Respiratory rate is 24 breaths per minute. Unresponsive. No oral intake whatsoever. Does respond with minimal withdrawal to oral cares. Eyes closed and mouth open. Mottling of distal lower extremities today. Extremities cool to touch.
--- NOTE | 2024-07-08 18:56 | PC.NURSE ---
End of shift report [id number]: Patient unresponsive to verbal stimuli throughout the shift. Increased respirations and patient moaning throughout the shift. Respirations non responsive to morphine hourly, after 3 doses sports book writer spoke with Dr. Cleary regarding continued non verbal display of pain. New order to increased morphine 10-20mg q1h prn. Patient utilizing prn MS q11.5 hours for displays of pain. At 1840 patient found to be without an apical pulse, respirations or blood pressure. Dr. Uzma Kam notified. [facility] referral line called and patient is not a canidate for donation. Family bedside and awaiting more family to arrive and then will notify staff of home choice. Discharge checklist completed, awaiting home to finalize.
--- NOTE | 2024-07-08 19:18 | PM.DN ---
Pronouncement Note Date and Time of Date of : 07/08/24 Time of : 18:40 PCOD Preliminary cause of : Cardiorespiratory failure Contributing Factors (1) Comfort measures only status: Contributing factors: Pt was critically ill with multiorgan failure and family chose comfort care treatment only. (2) Altered mental status: (3) Septic shock: (4) Acute hypoxemic respiratory failure: (5) Complete heart block: (6) EDNA (acute kidney injury): (7) Neutropenia: (8) Acute urinary tract infection: (9) Bilateral subdural hematomas: (10) Prostate cancer: (11) Cognitive impairment: Additional Data Confirmation of : no pulse, no respirations, no heart sounds and pupils fixed and dilated Family: at bedside Attending physician: Uzma Kam MD Time Seen by Provider: 18:40 Date Seen: 07/08/24 Was code activated?: No
--- NOTE | 2024-07-08 19:18 | PM.DS1 ---
DS: Providers Provider Date Seen: 07/08/24 Date of admission: 07/07/24 07:53 Primary care physician: Joshua Duran MD Admitting Clinician: Uzma Kam MD Attending Physician on discharge: Uzma Kam MD DS: Diagnosis Discharge Diagnosis (1) Comfort measures only status: Status: Acute Problem details: -Severe sepsis , likely 2/2 infection (UTI) causing multiorgan failure: Acute hypoxemic respiratory failure, EDNA, acute neutropenia, in addition to Complete heart block. -Pt is found to be critically ill w/ bad prognosis, frailty. At the ED, goals of care were discussed with his son who agreed on comfort cares as his father was in the process of actively dying. -D/C HFNC, DC IV Abx -ordered comfort care measures. - is imminent (2) Altered mental status: Status: Acute Problem details: -asleep 24 hours daily now. No response to verbal or tactile stimuli. (3) Septic shock: Status: Acute (4) Acute hypoxemic respiratory failure: Status: Acute (5) Complete heart block: Status: Acute Problem details: Patient family declined any additional disease directed diagnostic or interventional efforts in this regard (6) EDNA (acute kidney injury): Status: Acute (7) Neutropenia: Status: Acute (8) Acute urinary tract infection: Status: Acute (9) Bilateral subdural hematomas: Status: Acute Problem details: Chronic and/or acute and chronic. Conservative management at this time. Outpatient follow-up with [facility]. (10) Prostate cancer: Status: Acute Problem details: - 2014: diagnosed with PSA 15.7, [place] 4+3 - treated with radiation/Androgen deprivation - 2018: PSA rising and MRI exhibited recurrence, treated with Cryoablation (11) Cognitive impairment: Status: Acute Problem details: [place] on 06/17/2024 DS: Summary Hospital Course Hospital Course: Jose Alberto Amado is a 84 year old male pt w/ pmhx of cognitive impairment, b/l subdural hematomas and hx of prostate cancer who presents to ED w/ AMS and weakness. At the ED, pt was hypotensive, hypoxic on 15 L non-rebreather mask, altered. White blood cell count found to be 1.1, this is down from 7.8 at his earlier emergency department evaluation. Lactate of 7.8. Creatinine 1.4, this was seen to be 0.97 at a recent visit. D-dimer significantly elevated at 19.4 for, (CT PE -ve). CTH, CT chest , CT abdomen & pelvis were done. EKG shows patient to be in a complete heart block. Pt is found to be critically ill w/ bad prognosis, frailty. At the ED, goals of care were discussed with his son who agreed on comfort cares as his father was in the process of actively dying. Pt admitted for comfort care. Pt on 07/08/24 at 1840. Status at Discharge Overall status at discharge: other Time Spent with Patient Time attestation: Total time spent providing and/or coordinating discharge services: Exam Narrative: Exam Narrative: Confirmation of : no pulse, no respirations, no heart sounds and pupils fixed and dilated DS: Data Data Completed and Pending Labs on day of discharge: Preliminary micro results at discharge 07/04/24 23:15 Blood Culture - Preliminary Blood Gram positive cocci in cluster Discharge Plan Discharge Disposition: Date of Admission: 07/07/24 07:53 Attending Physician on Admission: Uzma Kam Attending Provider on Discharge: Uzma Kam Primary Care Provider: Joshua Duran Discharge Medications: No Action cefdinir 300 mg capsule 300 mg PO BID Follow Up Appointments: Joshua Duran MD [Primary Care Provider] - Hospital Course: Jose Alberto Amado is a 84 year old male pt w/ pmhx of cognitive impairment, b/l subdural hematomas and hx of prostate cancer who presents to ED w/ AMS and weakness. At the ED, pt was hypotensive, hypoxic on 15 L non-rebreather mask, altered. White blood cell count found to be 1.1, this is down from 7.8 at his earlier emergency department evaluation. Lactate of 7.8. Creatinine 1.4, this was seen to be 0.97 at a recent visit. D-dimer significantly elevated at 19.4 for, (CT PE -ve). CTH, CT chest , CT abdomen & pelvis were done. EKG shows patient to be in a complete heart block. Pt is found to be critically ill w/ bad prognosis, frailty. At the ED, goals of care were discussed with his son who agreed on comfort cares as his father was in the process of actively dying. Pt admitted for comfort care. Pt on 07/08/24 at 1840.
== END 2024-07-08 21:50 | disposition expired | DRG 871 ==
LOC: ED 07-05 16:56 → MEDSURG 07-05 17:11
PROVIDERS: Family Medicine; Admitting Provider Student in an Organized Health Care Education/Training Program; Emergency Provider Family Medicine; PCP Family Medicine; Visit Provider Student in an Organized Health Care Education/Training Program
DX: A41.89 Other specified sepsis (principal); I62.01 Nontraumatic acute subdural hemorrhage; I62.03 Nontraumatic chronic subdural hemorrhage; J96.01 Acute respiratory failure with hypoxia; R65.21 Severe sepsis with septic shock; I44.2 Atrioventricular block, complete; N17.9 Acute kidney failure, unspecified; N39.0 Urinary tract infection, site not specified; B96.89 Other specified bacterial agents as the cause of diseases classified elsewhere; Z68.20 Body mass index [BMI] 20.0-20.9, adult; Z85.46 Personal history of malignant neoplasm of prostate; D70.9 Neutropenia, unspecified
CPT/HCPCS: 36415; 70450; 71045; 71275; 74177; 80048; 80053; 80076; 81001; 81003; 83605; 83735; 83880; 84153; 84484; 85025; 85379; 86140; 87040; 87077; 87086; 87186; 87631; 93005; 99285; 99291; 99292; A9270; G0378; J0131; J2060; J2270; J2543; J3372; J7030; Q9967